=== PATIENT | male | born 1965 | race American Indian/Alaskan Native ===

== ENCOUNTER 2017-09-21 09:42 | Emergency (ER) | payer MEDICARE ==
--- NOTE | 2017-09-21 10:19 | Emergency Department Report ---
HPI - General Chief Complaint: Altered Mental Status Time Seen by Provider: 09/21/17 09:52 - HPI HPI: Room 18 The patient is a 52-year-old male presented with a chief complaint of altered mental status. Per EMS they were called to a [facility] for altered mental status. EMS states upon their arrival patient was very lethargic and appeared to have pinpoint pupils. Patient was administered 2 mg of Narcan after which she became more responsive . Patient currently has garbled speech but answers questions appropriately. Location: Mental Status Duration: unknown Quality: [See above] Severity: [See above] Modifying factors: [see above] Context: [see above] Mode of transportation: [not driving] ED Past Medical Hx - Past Medical History Previous Medical History?: Yes Hx Hypertension: Yes Hx Diabetes: Yes Hx Seizures: Yes - Surgical History Past Surgical History?: No - Family History Family history: no significant - Social History Smoking Status: Current Every Day Smoker Substance Use Type: Alcohol, Marijuana - Medications Home Medications: Home Medications Medication Instructions Recorded Confirmed Last Taken Type cloZAPine [Clozapine] 25 mg PO QHS 06/22/17 09/10/17 2 Days Ago History ~09/08/17 Aspirin [Aspirin BABY CHEW TAB] 81 mg PO QDAY #100 tab.chew 09/12/17 Unknown Rx Clopidogrel [Plavix] 75 mg PO QDAY #30 tablet 09/12/17 Unknown Rx Divalproex ER [Depakote ER] 1,000 mg PO QDAY #30 tablet 09/12/17 Unknown Rx Divalproex ER [Depakote ER] 500 mg PO QPM #30 tablet 09/12/17 Unknown Rx Insulin Glargine [Lantus VIAL] 30 units SUB-Q QHS #5 pen 09/12/17 Unknown Rx Lispro Insulin [Humalog] 0 unit SUB-Q ACHS units 09/12/17 Unknown Rx Metoprolol [Lopressor TAB] 25 mg PO BID #60 tablet 09/12/17 Unknown Rx Pravastatin [Pravachol] 40 mg PO QHS #30 tablet 09/12/17 Unknown Rx cloZAPine [Clozapine] 50 mg PO QPM 09/12/17 Unknown Rx cloZAPine [cloZAPine ODT] 300 mg PO BID 09/12/17 Unknown Rx clonazePAM [KlonoPIN] 0.5 mg PO BID #60 tablet 09/12/17 Unknown Rx metFORMIN [Glucophage] 1,000 mg PO BIDDIAB #60 tablet 09/12/17 Unknown Rx ED Review of Systems ROS: Stated complaint: AMS Other details as noted in HPI Comment: Unobtainable due to pts medical conditions Physical Exam - Physical Exam Vital Signs: Vital Signs 09/21/17 09:58 Temperature 97.5 F L Pulse Rate 89 Respiratory 12 Rate Blood Pressure 112/75 O2 Sat by Pulse 98 Oximetry Physical Exam: GENERAL: The patient is well-developed well-nourished male lying on stretcher not appearing to be in acute distress. [] HEENT: Normocephalic. Atraumatic. Extraocular motions are intact. Patient has moist mucous membranes. Pupils 2-1 mm bilaterally NECK: Supple. No meningitic signs are noted. There is no adenopathy noted. CHEST/LUNGS: Clear to auscultation. There is no respiratory distress noted. HEART/CARDIOVASCULAR: Regular. There is no tachycardia. There is no gallop rub or murmur. ABDOMEN: Abdomen is soft, nontender. Patient has normal bowel sounds. There is no abdominal distention. SKIN: There is no rash. There is no edema. There is no diaphoresis. NEURO: The patient is awake, but slow to respond. The patient is intermittently cooperative. The patient has no focal neurologic deficits. The patient has somewhat garbled speech MUSCULOSKELETAL: There is no evidence of acute injury. NIHSS= 1 LOC a. Alert= 0 Not alert but arousable to minor stimuli=1 Not alert requires repeated or strong stimuli to move= 2 Responds only reflex motor or unresponsive=3 b. asks month and age answers both correctly= 0 answers one correctly= 1 answers neither correctly= 2 Best Gaze normal= 0 abnormal in one or both but forced deviation or total paresis absent= 1 forced deviation or total gaze paresis= 2 Visual no visual loss= 0 partial hemianopia= 1 complete hemianopia= 2 bilateral hemianopia= 3 Facial Palsy normal= 0 minor paralysis= 1 partial paralysis= 2 complete paralysis= 3 Motor Arm no drift= 0 drift before 10 secs but doesnt hit bed= 1 some effort against gravity= 2 no effort against gravity= 3 no movement= 4 Motor leg no drift= 0 drift before 5 secs but doesnt hit bed= 1 drifts to bed before 5 secs= 2 no effort against gravity= 3 no movement= 4 Limb ataxia absent=0 present in one limb= 1 present in two limbs= 2 Sensory normal= 0 mild sensory loss= 1 severe (unaware of being touched)= 2 Best language mild/some loss of fluency= 1 severe= 2 mute= 3 Dysarthria normal= 0 (+)slurs some words= 1 severe/unintelligible= 2 Extinction and Inattention no abnormality= 0 visual, tactile, auditory or personal inattention= 1 profound (doesnt recognize own hand or orients to only one side= 2 ED Course Vital Signs 09/21/17 09:58 Temperature 97.5 F L Pulse Rate 89 Respiratory 12 Rate Blood Pressure 112/75 O2 Sat by Pulse 98 Oximetry ED Medical Decision Making - Lab Data Result diagrams: 09/21/17 10:05 09/21/17 10:05 Laboratory Tests 09/21/17 09/21/17 09/21/17 09:56 10:05 10:05 WBC 9.8 RBC 4.40 Hgb 12.6 Hct 36.8 MCV 84 MCH 29 MCHC 34 RDW 14.3 Plt Count 218 Lymph % (Auto) 25.4 Chester % (Auto) 8.3 H Eos % (Auto) 0.6 Baso % (Auto) 0.9 Lymph # 2.5 Chester # 0.8 Eos # 0.1 Baso # 0.1 Seg Neutrophils % 64.8 Seg Neutrophils # 6.3 PT 13.9 INR 1.02 APTT 37.0 H Sodium Potassium Chloride Carbon Dioxide Anion Gap BUN Creatinine Estimated GFR BUN/Creatinine Ratio Glucose POC Glucose 256 H Calcium Total Bilirubin AST ALT Alkaline Phosphatase Total Creatine Kinase CK-MB (CK-2) CK-MB (CK-2) Rel Index Troponin T Total Protein Albumin Albumin/Globulin Ratio Urine Color Urine Turbidity Urine pH Ur Specific Tad Urine Protein Urine Glucose (UA) Urine Ketones Urine Blood Urine Nitrite Urine Bilirubin Urine Urobilinogen Ur Leukocyte Esterase Urine WBC (Auto) Urine RBC (Auto) U Epithel Cells (Auto) Urine Bacteria (Auto) Urine Mucus Urine Opiates Screen Urine Methadone Screen Ur Barbiturates Screen Valproic Acid Ur Phencyclidine Scrn Ur Amphetamines Screen U Benzodiazepines Scrn Urine Cocaine Screen U Marijuana (THC) Screen Plasma/Serum Alcohol 09/21/17 09/21/17 09/21/17 10:05 10:05 10:05 WBC RBC Hgb Hct MCV MCH MCHC RDW Plt Count Lymph % (Auto) Chester % (Auto) Eos % (Auto) Baso % (Auto) Lymph # Chester # Eos # Baso # Seg Neutrophils % Seg Neutrophils # PT INR APTT Sodium 141 Potassium 3.6 Chloride 105.2 Carbon Dioxide 26 Anion Gap 13 BUN 10 Creatinine 0.8 Estimated GFR > 60 BUN/Creatinine Ratio 13 Glucose 255 H POC Glucose Calcium 8.4 Total Bilirubin 0.20 AST 9 ALT 11 Alkaline Phosphatase 51 Total Creatine Kinase 75 CK-MB (CK-2) 1.8 CK-MB (CK-2) Rel Index 2.4 Troponin T < 0.010 Total Protein 6.4 Albumin 2.8 L Albumin/Globulin Ratio 0.8 Urine Color Urine Turbidity Urine pH Ur Specific Tad Urine Protein Urine Glucose (UA) Urine Ketones Urine Blood Urine Nitrite Urine Bilirubin Urine Urobilinogen Ur Leukocyte Esterase Urine WBC (Auto) Urine RBC (Auto) U Epithel Cells (Auto) Urine Bacteria (Auto) Urine Mucus Urine Opiates Screen Urine Methadone Screen Ur Barbiturates Screen Valproic Acid 69.4 Ur Phencyclidine Scrn Ur Amphetamines Screen U Benzodiazepines Scrn Urine Cocaine Screen U Marijuana (THC) Screen Plasma/Serum Alcohol < 0.01 09/21/17 09/21/17 12:55 12:55 WBC RBC Hgb Hct MCV MCH MCHC RDW Plt Count Lymph % (Auto) Chester % (Auto) Eos % (Auto) Baso % (Auto) Lymph # Chester # Eos # Baso # Seg Neutrophils % Seg Neutrophils # PT INR APTT Sodium Potassium Chloride Carbon Dioxide Anion Gap BUN Creatinine Estimated GFR BUN/Creatinine Ratio Glucose POC Glucose Calcium Total Bilirubin AST ALT Alkaline Phosphatase Total Creatine Kinase CK-MB (CK-2) CK-MB (CK-2) Rel Index Troponin T Total Protein Albumin Albumin/Globulin Ratio Urine Color Yellow Urine Turbidity Clear Urine pH 5.0 Ur Specific Tad 1.023 Urine Protein 30 mg/dl Urine Glucose (UA) 150 Urine Ketones Tr Urine Blood Neg Urine Nitrite Pos Urine Bilirubin Neg Urine Urobilinogen < 2.0 Ur Leukocyte Esterase Neg Urine WBC (Auto) 14.0 H Urine RBC (Auto) 4.0 U Epithel Cells (Auto) 1.0 Urine Bacteria (Auto) 2+ Urine Mucus Few Urine Opiates Screen Presumptive negative Urine Methadone Screen Presumptive negative Ur Barbiturates Screen Presumptive negative Valproic Acid Ur Phencyclidine Scrn Presumptive negative Ur Amphetamines Screen Presumptive negative U Benzodiazepines Scrn Presumptive negative Urine Cocaine Screen Presumptive negative U Marijuana (THC) Screen Presumptive negative Plasma/Serum Alcohol - EKG Data -: EKG Interpreted by Me EKG shows normal: sinus rhythm Rate: normal - EKG Data When compared to previous EKG there are: previous EKG unavailable Interpretation: other (no ischemic changes seen) - Radiology Data Radiology results: report reviewed (CT head (discussed with radiologist)), image reviewed (CT head) CT head (discussed with radiologist Dr. Christiansen in the radiology reading room)- no acute findings. Chronic appearing infarcts - Differential Diagnosis opiate overdose, polysubstance abuse, ICH, electrolyte abnormality Critical care attestation.: If time is entered above; I have spent that time in minutes in the direct care of this critically ill patient, excluding procedure time. ED Disposition Clinical Impression: Altered mental status Disposition: DC-[id number] OP ADMIT IP TO THIS HOSP Is pt being admited?: Yes Does the pt Need Aspirin: Yes Condition: Fair Referrals: PRIMARY CARE,MD [Primary Care Provider] - 3-5 Days Time of Disposition: 13:33 (hospitalist paged (Dr Pimentel))
[2017-09-21 10:26] LABS: Basophils # (Auto) 0.1 K/mm3 (0.0-0.1); Basophils % (Auto) 0.9 % (0.0-1.8); Eosinophils # (Auto) 0.1 K/mm3 (0.0-0.4); Eosinophils % (Auto) 0.6 % (0.0-4.3); Hematocrit 36.8 % (35.5-45.6); Hemoglobin 12.6 gm/dl (11.8-15.2); Lymphocytes # (Auto) 2.5 K/mm3 (1.2-5.4); Lymphocytes % (Auto) 25.4 % (13.4-35.0); Mean Corpuscular HGB Conc 34 % (32-34); Mean Corpuscular Hemoglobin 29 pg (28-32); Mean Corpuscular Volume 84 fl (84-94); Monocytes # (Auto) 0.8 K/mm3 (0.0-0.8); Monocytes % (Auto) 8.3 % (0.0-7.3); Platelet Count 218 K/mm3 (140-440); Red Cell Distribution Width 14.3 % (13.2-15.2)
[2017-09-21 10:37] LABS: INR 1.02 (0.87-1.13)
[2017-09-21 10:46] LABS: Creatine Kinase MB 1.8 ng/mL (0.0-4.0)
[2017-09-21 10:48] LABS: Alanine Aminotransferase 11 units/L (7-56); Albumin 2.8 g/dL (3.9-5); BUN/Creatinine Ratio 13; Blood Urea Nitrogen 10 mg/dL (9-20); Calcium 8.4 mg/dL (8.4-10.2); Hemolysis Index 0
[2017-09-21 13:20] LABS: Bacteria,Urine 2+ /HPF (Negative); Bilirubin,Urine NEG (Negative); Blood,Urine NEG (Negative); Color,Urine Yellow (Yellow); Mucus,Urine FEW /HPF; Urobilinogen,Urine < 2.0 mg/dL (<2.0)
[2017-09-21 13:28] LABS: Amphetamine Screen,Urine PRESUMPTIVE NEGATIVE; Benzodiazepines Screen,Urine PRESUMPTIVE NEGATIVE; Cannabinoid Screen,Urine PRESUMPTIVE NEGATIVE; Cocaine Screen,Urine PRESUMPTIVE NEGATIVE; Methadone Screen,Urine PRESUMPTIVE NEGATIVE; Opiate Screen,Urine PRESUMPTIVE NEGATIVE
[2017-09-21] MEDS ORDERED: ASPIRIN PO ONE (13:34)
--- NOTE | 2017-09-21 17:47 | Event Note ---
Date: 09/21/17 Patient evaluated Recently admitted and discharge Had complete w/u Had MRIand MRA Had small infarct in Parietal area last admission AMS - resolved D/c hpme Cont same meds
[2017-09-22 01:20] VITALS: BP 119/76
--- NOTE | 2017-09-25 12:56 | Cat Scan Report ---
CT HEAD WITHOUT CONTRAST: HISTORY: Altered mental status. TECHNIQUE: Sequential 2.5mm CT images. COMPARISON: 09/09/17. FINDINGS: Cerebral Parenchyma: Chronic, small cortical infarcts in the right frontal lobe and left posterior temporal lobe are again noted. The remaining brain parenchyma demonstrates normal attenuation. Cerebellum: Focal chronic infarcts in the right cerebellar hemisphere measuring 1.7 cm and 0.9 cm are again noted. The remainder the cerebellum is unremarkable. Brainstem: Within normal limits. Ventricles: Normal. Sella: Normal. Extra-axial spaces: Normal. Basal Cisterns: Normal. Intracranial Hemorrhage: None. Midline Shift: None. Calvarium: Normal. Sinuses: Normal. Mastoid Air Cells: Normal. Visualized Orbits: Normal. IMPRESSION: No acute intracranial process. Chronic infarcts as described. No change since 09/09/17.
== END 2017-09-22 00:30 | disposition admitted as inpatient to this hospital (09) ==
LOC: ED 09:42
DX: R41.82 Altered mental status, unspecified (principal); I10 Essential (primary) hypertension; I63.8 Other cerebral infarction; F17.200 Nicotine dependence, unspecified, uncomplicated; F12.90 Cannabis use, unspecified, uncomplicated; Z79.82 Long term (current) use of aspirin; Z79.4 Long term (current) use of insulin
CPT/HCPCS: 36415; 70450; 80053; 80164; 80307; 81001; 82550; 82553; 82962; 84484; 85025; 85610; 85730; 93005; 93010; 99284; G0480; 80320

== ENCOUNTER 2017-12-02 09:17 | Inpatient (IN) | payer MEDICARE ==
[2017-12-02 10:02] LABS: Basophils % (Auto) 0.5 % (0.0-1.8); Hematocrit 39.8 % (35.5-45.6); Hemoglobin 13.2 gm/dl (11.8-15.2); Lymphocytes # (Auto) 2.1 K/mm3 (1.2-5.4); Lymphocytes % (Auto) 22.7 % (13.4-35.0); Mean Corpuscular HGB Conc 33 % (32-34); Mean Corpuscular Hemoglobin 28 pg (28-32); Mean Corpuscular Volume 85 fl (84-94); Monocytes # (Auto) 0.5 K/mm3 (0.0-0.8); Monocytes % (Auto) 5.4 % (0.0-7.3); Platelet Count 138 K/mm3 (140-440); Red Blood Count 4.68 M/mm3 (3.65-5.03); Red Cell Distribution Width 15.3 % (13.2-15.2)
[2017-12-02 10:20] LABS: Alanine Aminotransferase 14 units/L (7-56); Albumin 3.4 g/dL (3.9-5); BUN/Creatinine Ratio 7; Blood Urea Nitrogen 7 mg/dL (9-20); Calcium 8.8 mg/dL (8.4-10.2); Hemolysis Index 8
--- NOTE | 2017-12-02 10:22 | Emergency Department Report ---
HPI - General Chief Complaint: Altered Mental Status Time Seen by Provider: 12/02/17 09:59 - HPI HPI: 52-year-old male presents to the emergency department via EMS with the complaint of some altered mental status. The patient is currently awake but does appear confused and is unsure how long he has been here and when he was sent in for. He has a past medical history of [id number] diabetes, previous CVA, hyperlipidemia, schizophrenia and questionable seizure history. Currently the patient himself has no complaints but is a poor historian. ED Past Medical Hx - Past Medical History Previous Medical History?: Yes Hx Hypertension: Yes Hx Congestive Heart Failure: No Hx Diabetes: Yes Hx Seizures: Yes Hx Asthma: No Hx COPD: No Hx HIV: No - Social History Smoking Status: Current Every Day Smoker Substance Use Type: None - Medications Home Medications: Home Medications Medication Instructions Recorded Confirmed Last Taken Type cloZAPine [Clozapine] 25 mg PO QHS 06/22/17 12/02/17 2 Days Ago History ~09/08/17 Aspirin [Aspirin BABY CHEW TAB] 81 mg PO QDAY #100 tab.chew 09/12/17 12/02/17 Unknown Rx Clopidogrel [Plavix] 75 mg PO QDAY #30 tablet 09/12/17 12/02/17 Unknown Rx Pravastatin [Pravachol] 40 mg PO QHS #30 tablet 09/12/17 12/02/17 Unknown Rx Divalproex ER [Depakote ER] 500 mg PO BID 12/02/17 12/02/17 Unknown History Glimepiride [Amaryl] 2 mg PO QDAY 12/02/17 12/02/17 Unknown History cloZAPine 100 mg PO QDAY 12/02/17 12/02/17 Unknown History hydrOXYZINE PAMOATE [Hydroxyzine 25 mg PO QDAY 12/02/17 12/02/17 Unknown History Pamoate] metFORMIN [Glucophage] 500 mg PO QDAY 12/02/17 12/02/17 Unknown History ED Review of Systems ROS: Stated complaint: ALTERED LEVEL OF CONSCIOUSNESS Other details as noted in HPI Comment: Unobtainable due to pts medical conditions Neurological: confusion Physical Exam - Physical Exam Vital Signs: Vital Signs 12/02/17 12/02/17 12/02/17 09:33 09:35 09:36 Temperature 98.1 F Pulse Rate 87 Respiratory 16 16 Rate Blood Pressure 127/76 127/76 Blood Pressure 127/76 [Left] O2 Sat by Pulse 98 98 Oximetry 12/02/17 09:46 Temperature Pulse Rate 85 Respiratory 26 H Rate Blood Pressure 127/76 Blood Pressure [Left] O2 Sat by Pulse 98 Oximetry Physical Exam: GENERAL: The patient is well-developed well-nourished. HENT: Normocephalic. Atraumatic. Patient has moist mucous membranes. EYES: Extraocular motions are intact. Pupils equal reactive to light bilaterally. NECK: Supple. Trachea is midline. CHEST/LUNGS: Clear to auscultation. There is no respiratory distress noted. HEART/CARDIOVASCULAR: Regular. There is no tachycardia. There is no murmur. ABDOMEN: Abdomen is soft, nontender. Patient has normal bowel sounds. There is no abdominal distention. SKIN: Skin is warm and dry. NEURO: The patient is awake and cooperative but does appear confused. AO [address] but not time. Follows commands. MUSCULOSKELETAL: There is no tenderness or deformity. There is no evidence of acute injury. ED Course Vital Signs 12/02/17 12/02/17 12/02/17 09:33 09:35 09:36 Temperature 98.1 F Pulse Rate 87 Respiratory 16 16 Rate Blood Pressure 127/76 127/76 Blood Pressure 127/76 [Left] O2 Sat by Pulse 98 98 Oximetry 12/02/17 09:46 Temperature Pulse Rate 85 Respiratory 26 H Rate Blood Pressure 127/76 Blood Pressure [Left] O2 Sat by Pulse 98 Oximetry - Reevaluation(s) Reevaluation #1: 12/02/17 13:54 NIH Stroke Scale/Score (NIHSS) RESULT SUMMARY: 1 points NIH Stroke Scale INPUTS: 1A: Level of consciousness > 0 = Alert; keenly responsive 1B: Ask month and age > 1 = 1 question right 1C: 'Blink eyes' & 'squeeze hands' > 0 = Performs both tasks 2: Horizontal extraocular movements > 0 = Normal 3: Visual figueroa > 0 = No visual loss 4: Facial palsy > 0 = Normal symmetry 5A: Left arm motor drift > 0 = No drift for 10 seconds 5B: Right arm motor drift > 0 = No drift for 10 seconds 6A: Left leg motor drift > 0 = No drift for 5 seconds 6B: Right leg motor drift > 0 = No drift for 5 seconds 7: Limb Ataxia > 0 = No ataxia 8: Sensation > 0 = Normal; no sensory loss 9: Language/aphasia > 0 = Normal; no aphasia 10: Dysarthria > 0 = Normal 11: Extinction/inattention > 0 = No abnormality ED Medical Decision Making - Lab Data Result diagrams: 12/02/17 09:45 12/02/17 09:45 - EKG Data -: EKG Interpreted by Me EKG shows normal: sinus rhythm, axis, intervals (prolonged QT and QTC intervals) , QRS complexes (Q waves to the septal leads), ST-T waves (flattened T waves) Rate: normal - EKG Data When compared to previous EKG there are: no significant change Interpretation: unchanged when compared t () - Radiology Data Radiology results: report reviewed CT HEAD WITHOUT CONTRAST: HISTORY: Altered mental status. TECHNIQUE: Sequential 2.5mm CT images. COMPARISON: 09/21/17. FINDINGS: Chronic infarcts in the right frontal lobe, left posterior temporal lobe and right cerebellar hemisphere are unchanged since the previous examination. No new area of diminished attenuation is identified suggesting acute ischemia. No evidence for hemorrhage, mass or extra axial fluid collection. Ventricular size remains within normal limits. The visualized sinuses and mastoid air cells are adequately aerated. The calvarium is intact. IMPRESSION: Multiple chronic infarcts which are unchanged since 09/21/17. No acute intracranial process is identified. Transcribed By: TTR Dictated By: NASRIN SANCHEZ JR, MD Electronically Authenticated By: NASRIN SANCHEZ JR, MD Signed Date/Time: 12/02/17 1021 - Medical Decision Making Patient presents for some altered mental status. He does display some confusion but otherwise is awake and cooperative. He does not have any significant lateralizing deficits. There is no last known well time and therefore patient would not be a TPA candidate. CT of the head without contrast shows multiple chronic infarcts that are unchanged from previous. His labs do show a urinary tract infection but the rest the labs/blood work is mostly concerning for etiology of his symptoms. Urine culture was sent and the patient was started on Rocephin. He will be admitted to the hospital for further evaluation and treatment and was accepted for admission by the hospitalist, Dr. Pimentel. - Differential Diagnosis CVA, TIA, UTI, Dementia, Psychosis Critical Care Time: No Critical care attestation.: If time is entered above; I have spent that time in minutes in the direct care of this critically ill patient, excluding procedure time. ED Disposition Clinical Impression: Hyperglycemia Altered mental status Qualifiers: Altered mental status type: unspecified Qualified Code(s): R41.82 - Altered mental status, unspecified Uncontrolled diabetes mellitus Qualifiers: Diabetes mellitus type: type 2 Diabetes mellitus petroleum terminal plant operator insulin use: without petroleum terminal plant operator use Diabetes mellitus complication status: with hyperglycemia Qualified Code(s): E11.65 - Type 2 diabetes mellitus with hyperglycemia UTI (urinary tract infection) Qualifiers: Urinary tract infection type: acute cystitis Hematuria presence: without hematuria Qualified Code(s): N30.00 - Acute cystitis without hematuria Disposition: 09 OP ADMIT IP TO THIS HOSP Is pt being admited?: Yes Condition: Fair Time of Disposition: 11:31
--- NOTE | 2017-12-02 10:27 | Cat Scan Report ---
CT HEAD WITHOUT CONTRAST: HISTORY: Altered mental status. TECHNIQUE: Sequential 2.5mm CT images. COMPARISON: 09/21/17. FINDINGS: Chronic infarcts in the right frontal lobe, left posterior temporal lobe and right cerebellar hemisphere are unchanged since the previous examination. No new area of diminished attenuation is identified suggesting acute ischemia. No evidence for hemorrhage, mass or extra axial fluid collection. Ventricular size remains within normal limits. The visualized sinuses and mastoid air cells are adequately aerated. The calvarium is intact. IMPRESSION: Multiple chronic infarcts which are unchanged since 09/21/17. No acute intracranial process is identified.
[2017-12-02] MEDS ORDERED: NACL 0.9% 500 ML 500 ML IV ONE (10:33)
[2017-12-02] MEDS ORDERED: HumuLIN R IV ONE (10:33)
[2017-12-02 13:05] LABS: Bilirubin,Urine NEG (Negative); Blood,Urine NEG (Negative); Color,Urine Yellow (Yellow); Protein,Urine <15 mg/dL mg/dL (Negative); Urobilinogen,Urine < 2.0 mg/dL (<2.0)
[2017-12-02 13:13] LABS: Amphetamine Screen,Urine PRESUMPTIVE NEGATIVE; Benzodiazepines Screen,Urine PRESUMPTIVE NEGATIVE; Cannabinoid Screen,Urine PRESUMPTIVE NEGATIVE; Cocaine Screen,Urine PRESUMPTIVE NEGATIVE; Methadone Screen,Urine PRESUMPTIVE NEGATIVE; Opiate Screen,Urine PRESUMPTIVE NEGATIVE
[2017-12-02] MEDS: HEPARIN SUB-Q SCH ×2 (14:45→23:29)
[2017-12-02] MEDS ORDERED: ROCEPHIN/NS 1 GM/50 ML 1 GM/50 ML BAG IV ONE (15:00)
[2017-12-02] MEDS ORDERED: SODIUM CHLORIDE FLUSH SYRINGE 10 ML IV PRN (21:47)
[2017-12-02] MEDS ORDERED: TYLENOL PO PRN (21:47)
[2017-12-02] MEDS ORDERED: ZOFRAN IV PRN (21:47)
--- NOTE | 2017-12-02 21:47 | History and Physical Report ---
History of Present Illness Date of examination: 12/02/17 Date of admission: 12/02/17 11:32 Chief complaint: CC Altered Sensorium 2 days History of present illness: VENETIE IRA: 52-year-old black male with history of type 2 diabetes hyperlipidemia coronary artery disease and hypertension and psychiatric problems comes in for altered sensorium. No fever no chills. Patient has been altered for 2 days since yesterday. No precipitating factors. No shortness of breath. Patient has schizophrenia and questionable seizure history. Also previous CVA. No recent travel. Patient poor historian. Past History Past Medical History: diabetes, hypertension, hyperlipidemia, stroke, other ( Schizophrenia) Past Surgical History: No surgical history Social history: lives with family, full code Family history: hypertension Medications and Allergies Allergies Allergy/AdvReac Type Severity Reaction Status Date / Time No Known Allergies Allergy Unverified 09/09/17 14:11 Home Medications Medication Instructions Recorded Confirmed Last Taken Type cloZAPine [Clozapine] 25 mg PO QHS 06/22/17 12/02/17 2 Days Ago History ~09/08/17 Aspirin [Aspirin BABY CHEW TAB] 81 mg PO QDAY #100 tab.chew 09/12/17 12/02/17 Unknown Rx Clopidogrel [Plavix] 75 mg PO QDAY #30 tablet 09/12/17 12/02/17 Unknown Rx Pravastatin [Pravachol] 40 mg PO QHS #30 tablet 09/12/17 12/02/17 Unknown Rx Divalproex ER [Depakote ER] 500 mg PO BID 12/02/17 12/02/17 Unknown History Glimepiride [Amaryl] 2 mg PO QDAY 12/02/17 12/02/17 Unknown History cloZAPine 100 mg PO QDAY 12/02/17 12/02/17 Unknown History hydrOXYZINE PAMOATE [Hydroxyzine 25 mg PO QDAY 12/02/17 12/02/17 Unknown History Pamoate] metFORMIN [Glucophage] 500 mg PO QDAY 12/02/17 12/02/17 Unknown History Active Meds: Active Medications Heparin Sodium (Porcine) (Heparin) 5,000 unit SUB-Q Q8HR ANTONIO Last Admin: 12/02/17 14:45 Dose: 5,000 unit Review of Systems All systems: negative Constitutional: no weight loss, no weight gain, no fever, no chills Ears, nose, mouth and throat: no hoarseness, no sore throat, no swelling in mouth, no swelling in throat Cardiovascular: no chest pain, no orthopnea, no palpitations, no rapid/ irregular heart beat, no edema, no syncope Respiratory: no cough, no cough with sputum, no excessive sputum, no hemoptysis , no shortness of breath, no dyspnea on exertion Gastrointestinal: constipation, no nausea, no vomiting, no diarrhea Genitourinary Male: dysuria, urinary frequency Rectal: no pain Musculoskeletal: no neck stiffness, no neck pain, no shooting arm pain, no arm numbness/tingling, no low back pain, no shooting leg pain, no leg numbness/ tingling, no redness of joints Integumentary: no rash, no pruritis, no redness, no sores, no wounds, no jaundice, no boils, no blisters Neurological: no seizures, no syncope Psychiatric: no anxiety, no memory loss, no change in sleep habits, no sleep disturbances Endocrine: no cold intolerance, no heat intolerance, no polyphagia, no excessive thirst Hematologic/Lymphatic: no easy bruising, no easy bleeding Allergic/Immunologic: no urticaria, no allergic rhinitis, no wheezing Exam - Constitutional Vitals: Temp Pulse Resp BP Pulse Ox 99.0 F 76 20 111/74 98 12/02/17 15:47 12/02/17 15:47 12/02/17 15:47 12/02/17 15:47 12/02/17 15:47 General appearance: Present: no acute distress, well-nourished - EENT Eyes: Present: PERRL ENT: hearing intact, clear oral mucosa - Neck Neck: Present: supple, normal ROM - Respiratory Respiratory effort: normal Respiratory: bilateral: CTA - Cardiovascular Heart rate: 78 Rhythm: regular Heart Sounds: Present: S1 & S2. Absent: rub, click - Extremities Extremities: no ischemia, pulses intact, pulses symmetrical, No edema Peripheral Pulses: within normal limits - Abdominal General gastrointestinal: Present: soft, non-tender, non-distended, normal bowel sounds Male genitourinary: Present: normal - Integumentary Integumentary: Present: clear, warm, dry - Musculoskeletal Musculoskeletal: strength equal bilaterally, other (Altered sensorium) - Psychiatric Psychiatric: depressed, other - Neurologic Neurologic: CNII-XII intact, moves all extremities Results - Labs CBC & Chem 7: 12/02/17 09:45 08 09:45 Labs: Laboratory Last Values WBC 9.2 K/mm3 (4.5-11.0) 12/02/17 09:45 RBC 4.68 M/mm3 (3.65-5.03) 12/02/17 09:45 Hgb 13.2 gm/dl (11.8-15.2) 12/02/17 09:45 Hct 39.8 % (35.5-45.6) 12/02/17 09:45 MCV 85 fl (84-94) 12/02/17 09:45 MCH 28 pg (28-32) 12/02/17 09:45 MCHC 33 % (32-34) 12/02/17 09:45 RDW 15.3 % (13.2-15.2) H 12/02/17 09:45 Plt Count 138 K/mm3 (140-440) L 12/02/17 09:45 Lymph % (Auto) 22.7 % (13.4-35.0) 12/02/17 09:45 [place] % (Auto) 5.4 % (0.0-7.3) 12/02/17 09:45 Eos % (Auto) 0.0 % (0.0-4.3) 12/02/17 09:45 Baso % (Auto) 0.5 % (0.0-1.8) 12/02/17 09:45 Lymph # 2.1 K/mm3 (1.2-5.4) 12/02/17 09:45 [place] # 0.5 K/mm3 (0.0-0.8) 12/02/17 09:45 Eos # 0.0 K/mm3 (0.0-0.4) 12/02/17 09:45 Baso # 0.0 K/mm3 (0.0-0.1) 12/02/17 09:45 Seg Neutrophils % 71.4 % (40.0-70.0) H 12/02/17 09:45 Seg Neutrophils # 6.6 K/mm3 (1.8-7.7) 12/02/17 09:45 Sodium 141 mmol/L (137-145) 12/02/17 09:45 Potassium 4.0 mmol/L (3.6-5.0) 12/02/17 09:45 Chloride 103.2 mmol/L (98-107) 12/02/17 09:45 Carbon Dioxide 22 mmol/L (22-30) 12/02/17 09:45 Anion Gap 20 mmol/L 12/02/17 09:45 BUN 7 mg/dL (9-20) L 12/02/17 09:45 Creatinine 1.0 mg/dL (0.8-1.5) 12/02/17 09:45 Estimated GFR > 60 ml/min 12/02/17 09:45 BUN/Creatinine Ratio 7 % 12/02/17 09:45 Glucose 311 mg/dL (75-100) H 12/02/17 09:45 POC Glucose 99 (70-105) 12/02/17 17:33 Calcium 8.8 mg/dL (8.4-10.2) 12/02/17 09:45 Total Bilirubin 0.20 mg/dL (0.1-1.2) 12/02/17 09:45 AST 13 units/L (5-40) 12/02/17 09:45 ALT 14 units/L (7-56) 12/02/17 09:45 Alkaline Phosphatase 77 units/L (35-129) 12/02/17 09:45 Troponin T < 0.010 ng/mL (0.00-0.029) 12/02/17 09:45 Total Protein 6.9 g/dL (6.3-8.2) 12/02/17 09:45 Albumin 3.4 g/dL (3.9-5) L 12/02/17 09:45 Albumin/Globulin Ratio 1.0 % 12/02/17 09:45 TSH 4.120 mlU/mL (0.270-4.200) 12/02/17 09:45 Urine Color Yellow (Yellow) 12/02/17 12:33 Urine Turbidity Hazy (Clear) 12/02/17 12:33 Urine pH 6.0 (5.0-7.0) 12/02/17 12:33 Ur Specific [place] 1.018 (1.003-1.030) 12/02/17 12:33 Urine Protein <15 mg/dl mg/dL (Negative) 12/02/17 12:33 Urine Glucose (UA) >=500 mg/dL (Negative) 12/02/17 12:33 Urine Ketones Neg mg/dL (Negative) 12/02/17 12:33 Urine Blood Neg (Negative) 12/02/17 12:33 Urine Nitrite Neg (Negative) 12/02/17 12:33 Urine Bilirubin Neg (Negative) 12/02/17 12:33 Urine Urobilinogen < 2.0 mg/dL (<2.0) 12/02/17 12:33 Ur Leukocyte Esterase Mod (Negative) 12/02/17 12:33 Urine WBC (Auto) 89.0 /HPF (0.0-6.0) H 12/02/17 12:33 Urine RBC (Auto) 5.0 /HPF (0.0-6.0) 12/02/17 12:33 Urine Opiates Screen Presumptive negative 12/02/17 12:33 Urine Methadone Screen Presumptive negative 12/02/17 12:33 Ur Barbiturates Screen Presumptive negative 12/02/17 12:33 Valproic Acid 68.7 ug/mL (50-100) 12/02/17 09:45 Ur Phencyclidine Scrn Presumptive negative 12/02/17 12:33 Ur Amphetamines Screen Presumptive negative 12/02/17 12:33 U Benzodiazepines Scrn Presumptive negative 12/02/17 12:33 Urine Cocaine Screen Presumptive negative 12/02/17 12:33 U Marijuana (THC) Screen Presumptive negative 12/02/17 12:33 Drugs of Abuse Note Disclamer 12/02/17 12:33 Plasma/Serum Alcohol < 0.01 % (0-0.07) 12/02/17 09:45 Short CBC 12/02/17 Range/Units 09:45 WBC 9.2 (4.5-11.0) K/mm3 Hgb 13.2 (11.8-15.2) gm/dl Hct 39.8 (35.5-45.6) % Plt Count 138 L (140-440) K/mm3 BMP 12/02/17 09:45 Sodium 141 Potassium 4.0 Chloride 103.2 Carbon Dioxide 22 BUN 7 L Creatinine 1.0 Glucose 311 H Calcium 8.8 Cardiac Enzymes 12/02/17 Range/Units 09:45 Troponin T < 0.010 (0.00-0.029) ng/mL Liver Function 12/02/17 Range/Units 09:45 Total Bilirubin 0.20 (0.1-1.2) mg/dL AST 13 (5-40) units/L ALT 14 (7-56) units/L Alkaline Phosphatase 77 (35-129) units/L Albumin 3.4 L (3.9-5) g/dL Urine 12/02/17 Range/Units 12:33 Urine Color Yellow (Yellow) Urine pH 6.0 (5.0-7.0) Ur Specific [place] 1.018 (1.003-1.030) Urine Protein <15 mg/dl (Negative) mg/dL Urine Glucose (UA) >=500 (Negative) mg/dL - Imaging and Cardiology EKG: report reviewed (normal sinus rhythm probable anteroseptal infarct heart rate of 86) CT Scan - head: report reviewed Imaging and Cardiology: CT head IMPRESSION: Multiple chronic infarcts which are unchanged since 09/21/17. No acute intracranial process is identified. Assessment and Plan Advance Directives: Yes (full code) VTE prophylaxis?: Chemical Plan of care discussed with patient/family: Yes - Patient Problems (1) Acute encephalopathy Current Visit: Yes Status: Acute Plan to address problem: Patient is altered sensorium secondary to urinary tract infection and possible constipation secondary to Clozaril. KUB ordered IV Rocephin 2 g IV piggyback every 24 pending blood cultures (2) UTI (urinary tract infection) Current Visit: Yes Status: Acute Qualifiers: Urinary tract infection type: acute cystitis Hematuria presence: without hematuria Qualified Code(s): N30.00 - Acute cystitis without hematuria Plan to address problem: IV Rocephin 2 g IV piggyback every 24 (3) History of CVA with residual deficit Current Visit: Yes Status: Chronic Plan to address problem: Continue Plavix (4) Hyperlipidemia Current Visit: Yes Status: Chronic Qualifiers: Hyperlipidemia type: mixed hyperlipidemia Qualified Code(s): E78.2 - Mixed hyperlipidemia Plan to address problem: Continue statins (5) Uncontrolled diabetes mellitus Current Visit: Yes Status: Chronic Qualifiers: Diabetes mellitus type: type 2 Diabetes mellitus penitentiary insulin use: without penitentiary use Diabetes mellitus complication status: with hyperglycemia Qualified Code(s): E11.65 - Type 2 diabetes mellitus with hyperglycemia Plan to address problem: Continue oral hypoglycemics and coverage Patient started on Lantus 15 mg subcutaneous daily at bedtime. Check hemoglobin A1c (6) Schizophrenia Current Visit: Yes Status: Chronic Qualifiers: Schizophrenia type: unspecified Qualified Code(s): F20.9 - Schizophrenia, unspecified Plan to address problem: Continue Clozaril and Depakote (7) Hypertension Current Visit: Yes Status: Chronic Qualifiers: Hypertension type: essential hypertension Qualified Code(s): I10 - Essential (primary) hypertension Plan to address problem: Patient not on any antihypertensives Blood pressure under control We will initiate antihypertensives if necessary (8) DVT prophylaxis Current Visit: Yes Status: Acute Plan to address problem: Patient initiated on Lovenox GI prophylaxis initiated
[2017-12-02] MEDS ORDERED: PERCOCET 5/325 PO PRN (21:53)
[2017-12-02] MEDS ORDERED: MORPHINE IV PRN (21:53)
[2017-12-02] MEDS ORDERED: NACL 0.9% 1000 ML 1,000 ML IV SCH (22:00)
[2017-12-02] MEDS ORDERED: CLOZAPINE 25 MG PO SCH (22:00)
[2017-12-02] MEDS: PLAVIX PO SCH (22:20)
[2017-12-02] MEDS: PRAVACHOL PO SCH (23:19)
[2017-12-02] MEDS: PEPCID PO SCH (23:20)
[2017-12-02] MEDS: BABY ASPIRIN PO SCH (23:20)
[2017-12-02] MEDS: SODIUM CHLORIDE FLUSH SYRINGE 10 ML IV SCH (23:22)
[2017-12-02] MEDS: ROCEPHIN/NS 2 GM/100 ML 2 GM/100 ML BAG IV SCH (23:25)
[2017-12-02] MEDS: HumaLOG SUB-Q SCH (23:29)
[2017-12-03] MEDS: HEPARIN SUB-Q SCH ×3 (05:55→21:09)
[2017-12-03 06:13] LABS: Basophils # (Auto) 0.1 K/mm3 (0.0-0.1); Basophils % (Auto) 0.6 % (0.0-1.8); Eosinophils % (Auto) 0.2 % (0.0-4.3); Hemoglobin 12.4 gm/dl (11.8-15.2); Lymphocytes # (Auto) 3.9 K/mm3 (1.2-5.4); Lymphocytes % (Auto) 38.6 % (13.4-35.0); Mean Corpuscular HGB Conc 34 % (32-34); Mean Corpuscular Hemoglobin 29 pg (28-32); Mean Corpuscular Volume 84 fl (84-94); Monocytes # (Auto) 0.8 K/mm3 (0.0-0.8); Monocytes % (Auto) 7.6 % (0.0-7.3); Platelet Count 126 K/mm3 (140-440); Red Blood Count 4.28 M/mm3 (3.65-5.03); Red Cell Distribution Width 15.4 % (13.2-15.2)
[2017-12-03 06:44] LABS: Alanine Aminotransferase 14 units/L (7-56); BUN/Creatinine Ratio 9; Blood Urea Nitrogen 8 mg/dL (9-20); Calcium 8.3 mg/dL (8.4-10.2); Hemolysis Index 8
[2017-12-03] MEDS: HumaLOG SUB-Q SCH ×4 (09:03→22:52)
[2017-12-03] MEDS: PLAVIX PO SCH (09:38)
[2017-12-03] MEDS: PEPCID PO SCH ×2 (09:38→21:08)
[2017-12-03] MEDS: GLUCOPHAGE PO SCH (09:38)
[2017-12-03] MEDS: AMARYL PO SCH (09:39)
[2017-12-03] MEDS: SODIUM CHLORIDE FLUSH SYRINGE 10 ML IV SCH ×2 (09:39→21:10)
[2017-12-03] MEDS: BABY ASPIRIN PO SCH (09:39)
[2017-12-03] MEDS ORDERED: NON-FORMULARY (Clozapine [Clozapine] 100 MG) PO SCH (10:00)
--- NOTE | 2017-12-03 10:22 | Progress Note ---
Assessment and Plan Assessment and plan: Sepsis. Present on admission. Patient meets criteria given the tachycardia, altered mental status and diagnosis of UTI. Follow-up blood and urine cultures. Place on the sepsis pathway and check lactic acid levels. UTI. Follow-up urine cultures. Toxic metabolic encephalopathy. Continue to treat underlying causes as above. History of CVA with residual deficits. Continue Plavix. Hyperlipidemia. Continue statins. Diabetes mellitus type II, uncontrolled. Continue oral hypoglycemics and sliding scale. Continue Lantus 15 units at bedtime. Hypertension. Continue antihypertensive medications. Schizophrenia. Continue Clozaril and Depakote DVT prophylaxis. Continue Lovenox. History Interval history: No new issues overnight. Hospitalist Physical - Constitutional Vitals: Temp Pulse Resp BP Pulse Ox 98.5 F 58 L 18 110/70 99 12/03/17 05:35 12/03/17 05:35 12/03/17 05:35 12/03/17 05:35 12/03/17 05:35 General appearance: Present: no acute distress, well-nourished - EENT Eyes: Present: PERRL, EOM intact ENT: hearing intact, clear oral mucosa, dentition normal - Neck Neck: Present: supple, normal ROM - Respiratory Respiratory effort: normal Respiratory: bilateral: CTA - Cardiovascular Rhythm: regular Heart Sounds: Present: S1 & S2. Absent: gallop, rub - Extremities Extremities: no ischemia, No edema, Full ROM - Abdominal General gastrointestinal: soft, non-tender, non-distended, normal bowel sounds - Integumentary Integumentary: Present: clear, warm, dry - Neurologic Neurologic: CNII-XII intact, moves all extremities Results - Labs CBC & Chem 7: 12/03/17 05:13 12/03/17 05:13 Labs: Laboratory Last Values WBC 10.0 K/mm3 (4.5-11.0) 12/03/17 05:13 RBC 4.28 M/mm3 (3.65-5.03) 12/03/17 05:13 Hgb 12.4 gm/dl (11.8-15.2) 12/03/17 05:13 Hct 36.0 % (35.5-45.6) 12/03/17 05:13 MCV 84 fl (84-94) 12/03/17 05:13 MCH 29 pg (28-32) 12/03/17 05:13 MCHC 34 % (32-34) 12/03/17 05:13 RDW 15.4 % (13.2-15.2) H 12/03/17 05:13 Plt Count 126 K/mm3 (140-440) L 12/03/17 05:13 Lymph % (Auto) 38.6 % (13.4-35.0) H 12/03/17 05:13 [place] % (Auto) 7.6 % (0.0-7.3) H 12/03/17 05:13 Eos % (Auto) 0.2 % (0.0-4.3) 12/03/17 05:13 Baso % (Auto) 0.6 % (0.0-1.8) 12/03/17 05:13 Lymph # 3.9 K/mm3 (1.2-5.4) 12/03/17 05:13 [place] # 0.8 K/mm3 (0.0-0.8) 12/03/17 05:13 Eos # 0.0 K/mm3 (0.0-0.4) 12/03/17 05:13 Baso # 0.1 K/mm3 (0.0-0.1) 12/03/17 05:13 Seg Neutrophils % 53.0 % (40.0-70.0) 12/03/17 05:13 Seg Neutrophils # 5.3 K/mm3 (1.8-7.7) 12/03/17 05:13 Sodium 144 mmol/L (137-145) 12/03/17 05:13 Potassium 3.6 mmol/L (3.6-5.0) 12/03/17 05:13 Chloride 107.2 mmol/L (98-107) H 12/03/17 05:13 Carbon Dioxide 22 mmol/L (22-30) 12/03/17 05:13 Anion Gap 18 mmol/L 12/03/17 05:13 BUN 8 mg/dL (9-20) L 12/03/17 05:13 Creatinine 0.9 mg/dL (0.8-1.5) 12/03/17 05:13 Estimated GFR > 60 ml/min 12/03/17 05:13 BUN/Creatinine Ratio 9 % 12/03/17 05:13 Glucose 95 mg/dL (75-100) 12/03/17 05:13 POC Glucose 121 (70-105) H 12/03/17 07:52 Hemoglobin A1c 10.0 % (4-6) H 12/02/17 09:45 Calcium 8.3 mg/dL (8.4-10.2) L 12/03/17 05:13 Total Bilirubin 0.20 mg/dL (0.1-1.2) 12/03/17 05:13 AST 13 units/L (5-40) 12/03/17 05:13 ALT 14 units/L (7-56) 12/03/17 05:13 Alkaline Phosphatase 61 units/L (35-129) 12/03/17 05:13 Troponin T < 0.010 ng/mL (0.00-0.029) 12/02/17 09:45 Total Protein 6.1 g/dL (6.3-8.2) L 12/03/17 05:13 Albumin 3.0 g/dL (3.9-5) L 12/03/17 05:13 Albumin/Globulin Ratio 1.0 % 12/03/17 05:13 TSH 4.120 mlU/mL (0.270-4.200) 12/02/17 09:45 Urine Color Yellow (Yellow) 12/02/17 12:33 Urine Turbidity Hazy (Clear) 12/02/17 12:33 Urine pH 6.0 (5.0-7.0) 12/02/17 12:33 Ur Specific [place] 1.018 (1.003-1.030) 12/02/17 12:33 Urine Protein <15 mg/dl mg/dL (Negative) 12/02/17 12:33 Urine Glucose (UA) >=500 mg/dL (Negative) 12/02/17 12:33 Urine Ketones Neg mg/dL (Negative) 12/02/17 12:33 Urine Blood Neg (Negative) 12/02/17 12:33 Urine Nitrite Neg (Negative) 12/02/17 12:33 Urine Bilirubin Neg (Negative) 12/02/17 12:33 Urine Urobilinogen < 2.0 mg/dL (<2.0) 12/02/17 12:33 Ur Leukocyte Esterase Mod (Negative) 12/02/17 12:33 Urine WBC (Auto) 89.0 /HPF (0.0-6.0) H 12/02/17 12:33 Urine RBC (Auto) 5.0 /HPF (0.0-6.0) 12/02/17 12:33 Urine Opiates Screen Presumptive negative 12/02/17 12:33 Urine Methadone Screen Presumptive negative 12/02/17 12:33 Ur Barbiturates Screen Presumptive negative 12/02/17 12:33 Valproic Acid 68.7 ug/mL (50-100) 12/02/17 09:45 Ur Phencyclidine Scrn Presumptive negative 12/02/17 12:33 Ur Amphetamines Screen Presumptive negative 12/02/17 12:33 U Benzodiazepines Scrn Presumptive negative 12/02/17 12:33 Urine Cocaine Screen Presumptive negative 12/02/17 12:33 U Marijuana (THC) Screen Presumptive negative 12/02/17 12:33 Drugs of Abuse Note Disclamer 12/02/17 12:33 Plasma/Serum Alcohol < 0.01 % (0-0.07) 12/02/17 09:45
[2017-12-03] MEDS: VISTARIL PO SCH (15:53)
[2017-12-03] MEDS: ROCEPHIN/NS 2 GM/100 ML 2 GM/100 ML BAG IV SCH (21:09)
[2017-12-03] MEDS: PRAVACHOL PO SCH (21:09)
[2017-12-03] MEDS: LANTUS SUB-Q SCH (22:52)
[2017-12-04] MEDS: HEPARIN SUB-Q SCH ×3 (06:03→21:51)
[2017-12-04] MEDS: HumaLOG SUB-Q SCH ×3 (09:08→22:25)
[2017-12-04] MEDS: GLUCOPHAGE PO SCH (09:12)
[2017-12-04] MEDS: SODIUM CHLORIDE FLUSH SYRINGE 10 ML IV SCH ×2 (09:12→21:51)
[2017-12-04] MEDS: PEPCID PO SCH ×2 (09:12→21:50)
[2017-12-04] MEDS: PLAVIX PO SCH (09:12)
[2017-12-04] MEDS: BABY ASPIRIN PO SCH (09:12)
[2017-12-04] MEDS: VISTARIL PO SCH (09:12)
[2017-12-04] MEDS: AMARYL PO SCH (09:12)
--- NOTE | 2017-12-04 11:06 | Progress Note ---
Assessment and Plan Assessment and plan: Sepsis. Present on admission. Patient meets criteria given the tachycardia, altered mental status and diagnosis of UTI. Follow-up blood and urine cultures. Continue sepsis pathway and follow-up lactic acid levels. UTI. Follow-up urine cultures. Toxic metabolic encephalopathy. Continue to treat underlying causes as above. Patient does have a history of schizophrenia. Schizophrenia. Psychiatric consultation. History of CVA with residual deficits. Continue Plavix. Hyperlipidemia. Continue statins. Diabetes mellitus type II, uncontrolled. Continue oral hypoglycemics and sliding scale. Continue Lantus 15 units at bedtime. Hypertension. Continue antihypertensive medications. Schizophrenia. Continue Clozaril and Depakote DVT prophylaxis. Continue Lovenox. History Interval history: No new issues overnight. Hospitalist Physical - Constitutional Vitals: Temp Pulse Resp BP Pulse Ox 97.8 F 59 L 18 112/74 100 12/04/17 05:35 12/04/17 05:35 12/04/17 05:35 12/04/17 05:35 12/04/17 05:35 General appearance: Present: no acute distress, well-nourished - EENT Eyes: Present: PERRL, EOM intact ENT: hearing intact, clear oral mucosa, dentition normal - Neck Neck: Present: supple, normal ROM - Respiratory Respiratory effort: normal Respiratory: bilateral: CTA - Cardiovascular Rhythm: regular Heart Sounds: Present: S1 & S2. Absent: gallop, rub - Extremities Extremities: no ischemia, No edema, Full ROM - Abdominal General gastrointestinal: soft, non-tender, non-distended, normal bowel sounds - Integumentary Integumentary: Present: clear, warm, dry - Neurologic Neurologic: CNII-XII intact, moves all extremities Results - Labs CBC & Chem 7: 12/03/17 05:13 12/03/17 05:13 Labs: Laboratory Last Values WBC 10.0 K/mm3 (4.5-11.0) 12/03/17 05:13 RBC 4.28 M/mm3 (3.65-5.03) 12/03/17 05:13 Hgb 12.4 gm/dl (11.8-15.2) 12/03/17 05:13 Hct 36.0 % (35.5-45.6) 12/03/17 05:13 MCV 84 fl (84-94) 12/03/17 05:13 MCH 29 pg (28-32) 12/03/17 05:13 MCHC 34 % (32-34) 12/03/17 05:13 RDW 15.4 % (13.2-15.2) H 12/03/17 05:13 Plt Count 126 K/mm3 (140-440) L 12/03/17 05:13 Lymph % (Auto) 38.6 % (13.4-35.0) H 12/03/17 05:13 [place] % (Auto) 7.6 % (0.0-7.3) H 12/03/17 05:13 Eos % (Auto) 0.2 % (0.0-4.3) 12/03/17 05:13 Baso % (Auto) 0.6 % (0.0-1.8) 12/03/17 05:13 Lymph # 3.9 K/mm3 (1.2-5.4) 12/03/17 05:13 [place] # 0.8 K/mm3 (0.0-0.8) 12/03/17 05:13 Eos # 0.0 K/mm3 (0.0-0.4) 12/03/17 05:13 Baso # 0.1 K/mm3 (0.0-0.1) 12/03/17 05:13 Seg Neutrophils % 53.0 % (40.0-70.0) 12/03/17 05:13 Seg Neutrophils # 5.3 K/mm3 (1.8-7.7) 12/03/17 05:13 Sodium 144 mmol/L (137-145) 12/03/17 05:13 Potassium 3.6 mmol/L (3.6-5.0) 12/03/17 05:13 Chloride 107.2 mmol/L (98-107) H 12/03/17 05:13 Carbon Dioxide 22 mmol/L (22-30) 12/03/17 05:13 Anion Gap 18 mmol/L 12/03/17 05:13 BUN 8 mg/dL (9-20) L 12/03/17 05:13 Creatinine 0.9 mg/dL (0.8-1.5) 12/03/17 05:13 Estimated GFR > 60 ml/min 12/03/17 05:13 BUN/Creatinine Ratio 9 % 12/03/17 05:13 Glucose 95 mg/dL (75-100) 12/03/17 05:13 POC Glucose 136 (70-105) H 12/04/17 08:27 Hemoglobin A1c 10.0 % (4-6) H 12/02/17 09:45 Lactic Acid 1.50 mmol/L (0.7-2.0) 12/03/17 10:49 Calcium 8.3 mg/dL (8.4-10.2) L 12/03/17 05:13 Total Bilirubin 0.20 mg/dL (0.1-1.2) 12/03/17 05:13 AST 13 units/L (5-40) 12/03/17 05:13 ALT 14 units/L (7-56) 12/03/17 05:13 Alkaline Phosphatase 61 units/L (35-129) 12/03/17 05:13 Troponin T < 0.010 ng/mL (0.00-0.029) 12/02/17 09:45 Total Protein 6.1 g/dL (6.3-8.2) L 12/03/17 05:13 Albumin 3.0 g/dL (3.9-5) L 12/03/17 05:13 Albumin/Globulin Ratio 1.0 % 12/03/17 05:13 TSH 4.120 mlU/mL (0.270-4.200) 12/02/17 09:45 Urine Color Yellow (Yellow) 12/02/17 12:33 Urine Turbidity Hazy (Clear) 12/02/17 12:33 Urine pH 6.0 (5.0-7.0) 12/02/17 12:33 Ur Specific [place] 1.018 (1.003-1.030) 12/02/17 12:33 Urine Protein <15 mg/dl mg/dL (Negative) 12/02/17 12:33 Urine Glucose (UA) >=500 mg/dL (Negative) 12/02/17 12:33 Urine Ketones Neg mg/dL (Negative) 12/02/17 12:33 Urine Blood Neg (Negative) 12/02/17 12:33 Urine Nitrite Neg (Negative) 12/02/17 12:33 Urine Bilirubin Neg (Negative) 12/02/17 12:33 Urine Urobilinogen < 2.0 mg/dL (<2.0) 12/02/17 12:33 Ur Leukocyte Esterase Mod (Negative) 12/02/17 12:33 Urine WBC (Auto) 89.0 /HPF (0.0-6.0) H 12/02/17 12:33 Urine RBC (Auto) 5.0 /HPF (0.0-6.0) 12/02/17 12:33 Urine Opiates Screen Presumptive negative 12/02/17 12:33 Urine Methadone Screen Presumptive negative 12/02/17 12:33 Ur Barbiturates Screen Presumptive negative 12/02/17 12:33 Valproic Acid 68.7 ug/mL (50-100) 12/02/17 09:45 Ur Phencyclidine Scrn Presumptive negative 12/02/17 12:33 Ur Amphetamines Screen Presumptive negative 12/02/17 12:33 U Benzodiazepines Scrn Presumptive negative 12/02/17 12:33 Urine Cocaine Screen Presumptive negative 12/02/17 12:33 U Marijuana (THC) Screen Presumptive negative 12/02/17 12:33 Drugs of Abuse Note Disclamer 12/02/17 12:33 Plasma/Serum Alcohol < 0.01 % (0-0.07) 12/02/17 09:45 Blood Type O POSITIVE 12/03/17 10:49 Antibody Screen Negative 12/03/17 10:49
[2017-12-04] MEDS: ROCEPHIN/NS 2 GM/100 ML 2 GM/100 ML BAG IV SCH (21:49)
[2017-12-04] MEDS: PRAVACHOL PO SCH (21:50)
[2017-12-04] MEDS: LANTUS SUB-Q SCH (23:04)
[2017-12-05] MEDS: HEPARIN SUB-Q SCH ×3 (05:32→23:20)
[2017-12-05] MEDS: HumaLOG SUB-Q SCH ×4 (08:47→22:00)
[2017-12-05] MEDS: PEPCID PO SCH ×2 (10:12→23:14)
[2017-12-05] MEDS: BABY ASPIRIN PO SCH (10:12)
[2017-12-05] MEDS: VISTARIL PO SCH (10:12)
[2017-12-05] MEDS: GLUCOPHAGE PO SCH (10:12)
[2017-12-05] MEDS: PLAVIX PO SCH (10:13)
[2017-12-05] MEDS: SODIUM CHLORIDE FLUSH SYRINGE 10 ML IV SCH ×2 (10:13→23:19)
[2017-12-05] MEDS: AMARYL PO SCH (10:13)
--- NOTE | 2017-12-05 10:58 | Progress Note ---
Assessment and Plan Assessment and plan: Sepsis. Present on admission. Blood cultures are negative 24 hours. However , urine culture reveals Enterobacter. UTI. Continue IV antibiotics. Toxic metabolic encephalopathy. Continue to treat underlying causes as above. Patient does have a history of schizophrenia. Schizophrenia. Psychiatric consultation. Continue Clozaril and Depakote. History of CVA with residual deficits. Continue Plavix. Hyperlipidemia. Continue statins. Diabetes mellitus type II, uncontrolled. Continue oral hypoglycemics and sliding scale. Continue Lantus 15 units at bedtime. Hypertension. Continue antihypertensive medications. DVT prophylaxis. Continue Lovenox. History Interval history: No new issues overnight. Hospitalist Physical - Constitutional Vitals: Temp Pulse Resp BP Pulse Ox 97.7 F 54 L 16 116/80 98 12/04/17 23:42 12/04/17 23:42 12/04/17 23:42 12/04/17 23:42 12/04/17 23:42 General appearance: Present: no acute distress, well-nourished - EENT Eyes: Present: PERRL, EOM intact ENT: hearing intact, clear oral mucosa, dentition normal - Neck Neck: Present: supple, normal ROM - Respiratory Respiratory effort: normal Respiratory: bilateral: CTA - Cardiovascular Rhythm: regular Heart Sounds: Present: S1 & S2. Absent: gallop, rub - Extremities Extremities: no ischemia, No edema, Full ROM - Abdominal General gastrointestinal: soft, non-tender, non-distended, normal bowel sounds - Integumentary Integumentary: Present: clear, warm, dry - Neurologic Neurologic: CNII-XII intact, moves all extremities Results - Labs CBC & Chem 7: 12/03/17 05:13 12/03/17 05:13 Labs: Laboratory Last Values WBC 10.0 K/mm3 (4.5-11.0) 12/03/17 05:13 RBC 4.28 M/mm3 (3.65-5.03) 12/03/17 05:13 Hgb 12.4 gm/dl (11.8-15.2) 12/03/17 05:13 Hct 36.0 % (35.5-45.6) 12/03/17 05:13 MCV 84 fl (84-94) 12/03/17 05:13 MCH 29 pg (28-32) 12/03/17 05:13 MCHC 34 % (32-34) 12/03/17 05:13 RDW 15.4 % (13.2-15.2) H 12/03/17 05:13 Plt Count 126 K/mm3 (140-440) L 12/03/17 05:13 Lymph % (Auto) 38.6 % (13.4-35.0) H 12/03/17 05:13 [place] % (Auto) 7.6 % (0.0-7.3) H 12/03/17 05:13 Eos % (Auto) 0.2 % (0.0-4.3) 12/03/17 05:13 Baso % (Auto) 0.6 % (0.0-1.8) 12/03/17 05:13 Lymph # 3.9 K/mm3 (1.2-5.4) 12/03/17 05:13 [place] # 0.8 K/mm3 (0.0-0.8) 12/03/17 05:13 Eos # 0.0 K/mm3 (0.0-0.4) 12/03/17 05:13 Baso # 0.1 K/mm3 (0.0-0.1) 12/03/17 05:13 Seg Neutrophils % 53.0 % (40.0-70.0) 12/03/17 05:13 Seg Neutrophils # 5.3 K/mm3 (1.8-7.7) 12/03/17 05:13 Sodium 144 mmol/L (137-145) 12/03/17 05:13 Potassium 3.6 mmol/L (3.6-5.0) 12/03/17 05:13 Chloride 107.2 mmol/L (98-107) H 12/03/17 05:13 Carbon Dioxide 22 mmol/L (22-30) 12/03/17 05:13 Anion Gap 18 mmol/L 12/03/17 05:13 BUN 8 mg/dL (9-20) L 12/03/17 05:13 Creatinine 0.9 mg/dL (0.8-1.5) 12/03/17 05:13 Estimated GFR > 60 ml/min 12/03/17 05:13 BUN/Creatinine Ratio 9 % 12/03/17 05:13 Glucose 95 mg/dL (75-100) 12/03/17 05:13 POC Glucose 121 (70-105) H 12/05/17 07:31 Hemoglobin A1c 10.0 % (4-6) H 12/02/17 09:45 Lactic Acid 1.50 mmol/L (0.7-2.0) 12/03/17 10:49 Calcium 8.3 mg/dL (8.4-10.2) L 12/03/17 05:13 Total Bilirubin 0.20 mg/dL (0.1-1.2) 12/03/17 05:13 AST 13 units/L (5-40) 12/03/17 05:13 ALT 14 units/L (7-56) 12/03/17 05:13 Alkaline Phosphatase 61 units/L (35-129) 12/03/17 05:13 Troponin T < 0.010 ng/mL (0.00-0.029) 12/02/17 09:45 Total Protein 6.1 g/dL (6.3-8.2) L 12/03/17 05:13 Albumin 3.0 g/dL (3.9-5) L 12/03/17 05:13 Albumin/Globulin Ratio 1.0 % 12/03/17 05:13 TSH 4.120 mlU/mL (0.270-4.200) 12/02/17 09:45 Urine Color Yellow (Yellow) 12/02/17 12:33 Urine Turbidity Hazy (Clear) 12/02/17 12:33 Urine pH 6.0 (5.0-7.0) 12/02/17 12:33 Ur Specific [place] 1.018 (1.003-1.030) 12/02/17 12:33 Urine Protein <15 mg/dl mg/dL (Negative) 12/02/17 12:33 Urine Glucose (UA) >=500 mg/dL (Negative) 12/02/17 12:33 Urine Ketones Neg mg/dL (Negative) 12/02/17 12:33 Urine Blood Neg (Negative) 12/02/17 12:33 Urine Nitrite Neg (Negative) 12/02/17 12:33 Urine Bilirubin Neg (Negative) 12/02/17 12:33 Urine Urobilinogen < 2.0 mg/dL (<2.0) 12/02/17 12:33 Ur Leukocyte Esterase Mod (Negative) 12/02/17 12:33 Urine WBC (Auto) 89.0 /HPF (0.0-6.0) H 12/02/17 12:33 Urine RBC (Auto) 5.0 /HPF (0.0-6.0) 12/02/17 12:33 Urine Opiates Screen Presumptive negative 12/02/17 12:33 Urine Methadone Screen Presumptive negative 12/02/17 12:33 Ur Barbiturates Screen Presumptive negative 12/02/17 12:33 Valproic Acid 68.7 ug/mL (50-100) 12/02/17 09:45 Ur Phencyclidine Scrn Presumptive negative 12/02/17 12:33 Ur Amphetamines Screen Presumptive negative 12/02/17 12:33 U Benzodiazepines Scrn Presumptive negative 12/02/17 12:33 Urine Cocaine Screen Presumptive negative 12/02/17 12:33 U Marijuana (THC) Screen Presumptive negative 12/02/17 12:33 Drugs of Abuse Note Disclamer 12/02/17 12:33 Plasma/Serum Alcohol < 0.01 % (0-0.07) 12/02/17 09:45 Blood Type O POSITIVE 12/03/17 10:49 Antibody Screen Negative 12/03/17 10:49
[2017-12-05 11:18] LABS: Lipase 10 units/L (13-60)
--- NOTE | 2017-12-05 13:32 | Consultation ---
History of Present Illness - Reason for Consult Consult date: 12/05/17 Reason for consult: Mental Health Evaluation Requesting physician: MELISSA MARX - Chief Complaint Chief complaint: "AMS" - History of Present Psychiatric Illness 52-year-old male presents to the emergency department via EMS for AMS. Today the patient is calm and pleasant, but confused during the assessment. He could not answer most questions logically. He did deny AVH's when asked. He attempted to recall numbers within 5 mins, but was unsuccessful. He was able to state the month and year of his only. This patient is a poor historian at this time. Medications and Allergies Allergies Allergy/AdvReac Type Severity Reaction Status Date / Time No Known Allergies Allergy Unverified 09/09/17 14:11 Home Medications Medication Instructions Recorded Confirmed Last Taken Type cloZAPine [Clozapine] 25 mg PO QHS 06/22/17 12/02/17 2 Days Ago History ~09/08/17 Aspirin [Aspirin BABY CHEW TAB] 81 mg PO QDAY #100 tab.chew 09/12/17 12/02/17 Unknown Rx Clopidogrel [Plavix] 75 mg PO QDAY #30 tablet 09/12/17 12/02/17 Unknown Rx Pravastatin [Pravachol] 40 mg PO QHS #30 tablet 09/12/17 12/02/17 Unknown Rx Divalproex ER [Depakote ER] 500 mg PO BID 12/02/17 12/02/17 Unknown History Glimepiride [Amaryl] 2 mg PO QDAY 12/02/17 12/02/17 Unknown History cloZAPine 100 mg PO QDAY 12/02/17 12/02/17 Unknown History hydrOXYZINE PAMOATE [Hydroxyzine 25 mg PO QDAY 12/02/17 12/02/17 Unknown History Pamoate] metFORMIN [Glucophage] 500 mg PO QDAY 12/02/17 12/02/17 Unknown History Active Meds: Active Medications Acetaminophen (Tylenol) 650 mg PO Q4H PRN PRN Reason: Pain MILD(1-3)/Fever >100.5/[place] Aspirin (Baby Aspirin) 81 mg PO QDAY [facility] Last Admin: 12/05/17 10:12 Dose: 81 mg Clopidogrel Bisulfate (Plavix) 75 mg PO QDAY [facility] Last Admin: 12/05/17 10:13 Dose: 75 mg Divalproex Sodium (Depakote Er) 500 mg PO BID [facility] Last Admin: 12/05/17 10:12 Dose: 500 mg Famotidine (Pepcid) 20 mg PO BID [facility] Last Admin: 12/05/17 10:12 Dose: 20 mg Glimepiride (Amaryl) 2 mg PO QDDIAB [facility] Last Admin: 12/05/17 10:13 Dose: 2 mg Heparin Sodium (Porcine) (Heparin) 5,000 unit SUB-Q Q8HR [facility] Last Admin: 12/05/17 13:03 Dose: 5,000 unit Hydroxyzine Pamoate (Vistaril) 25 mg PO QDAY [facility] Last Admin: 12/05/17 10:12 Dose: 25 mg Ceftriaxone Sodium (Rocephin/Ns 2 Gm/100 Ml) 2 gm in 100 mls @ 200 mls/hr IV Q24HR@2200 [facility]; Protocol Last Admin: 12/04/17 21:49 Dose: 200 mls/hr Insulin Glargine (Lantus) 15 units SUB-Q QHS [facility] Last Admin: 12/04/17 23:04 Dose: 15 units Insulin Human Lispro (Humalog) 0 unit SUB-Q ACHS [facility]; Protocol Last Admin: 12/05/17 13:03 Dose: 3 unit Metformin HCl (Glucophage) 500 mg PO QDDIAB [facility] Last Admin: 12/05/17 10:12 Dose: 500 mg Miscellaneous Medication (Clozapine [Clozapine]) 25 mg PO QHS [facility] Miscellaneous Medication (Clozapine [Clozapine]) 100 mg PO QDAY [facility] Morphine Sulfate (Morphine) 2 mg IV Q4H PRN PRN Reason: Pain, Moderate (4-6) Ondansetron HCl (Zofran) 4 mg IV Q8H PRN PRN Reason: Nausea And Vomiting Oxycodone/Acetaminophen (Percocet 5/325) 1 tab PO Q6H PRN PRN Reason: Pain, Moderate (4-6) Last Admin: 12/02/17 23:21 Dose: 1 tab Pravastatin Sodium (Pravachol) 40 mg PO QHS [facility] Last Admin: 12/04/17 21:50 Dose: 40 mg Sodium Chloride (Sodium Chloride Flush Syringe 10 Ml) 10 ml IV BID [facility] Last Admin: 12/05/17 10:13 Dose: 10 ml Sodium Chloride (Sodium Chloride Flush Syringe 10 Ml) 10 ml IV PRN PRN PRN Reason: LINE FLUSH Past psychiatric history - Past Medical History Past Medical History: diabetes, hypertension, seizures Past Surgical History: Other (Unable to obtain) - past Psychiatric treatment and history psychiatric treatment history: Unable to obtain a psy hx and a fam psy hx. - Social History Social history: other (Unable to obtain) Mental Status Exam - Vital signs Last Vital Signs Temp 98.7 F 12/05/17 11:50 Pulse 55 L 12/05/17 11:50 Resp 18 12/05/17 11:50 BP 123/79 12/05/17 11:50 Pulse Ox 99 12/05/17 11:50 - Exam Narrative exam: MSE: Appearance: calm Behavior: regular eye contact Speech: regular rate and tone Mood: "okay" Affect: congruent to mood Thought Process: confused Thought Content: denies SI/HI's and AVH's Motor Activity: lying in in bed Cognition: alert Insight: limited Judgment: limited Results Result Diagrams: 12/03/17 05:13 12/03/17 05:13 Abnormal lab results 12/04/17 12/04/17 12/05/17 Range/Units 16:36 21:23 07:31 POC Glucose 143 H 143 H 121 H (70-105) Lipase (13-60) units/L 12/05/17 12/05/17 Range/Units 10:33 10:57 POC Glucose 220 H (70-105) Lipase 10 L (13-60) units/L All other labs normal. Assessment and Plan Assessment and plan: Impression: Hx of Schizophrenia per the record. Delirium. Today the patient is confused during the assessment. VA 68.7. Medical: Toxic Metabolic Encephalopathy and a UTI Recommendation/Plan: Continue home medication Depakote 500 mg PO BID. Clozaril isn't on formulary. Will follow up with patient in 24 hours. Recommend Delirium precautions below: 1. Frequently reorient patient and involve him/her in their care (simple explanations of procedures, tests, medications). 2. Lights on and shades open during daytime hours. 3. Write date and goals of care in a visible place. 4. Try to avoid unnecessary interruptions to sleep during nighttime hours. 5. Obtain glasses, hearing aids from home if patient uses these at baseline. 6. Avoid medications that may exacerbate delirium (especially narcotics, benzodiazepines, barbiturates, ambien, lunesta, and medications with excessive anticholinergic properties). Recommend Tylenol for pain. The patient has Morphine ordered.
[2017-12-05] MEDS: PRAVACHOL PO SCH (23:15)
[2017-12-05] MEDS: ROCEPHIN/NS 2 GM/100 ML 2 GM/100 ML BAG IV SCH (23:15)
[2017-12-06] MEDS: LANTUS SUB-Q SCH (02:07)
[2017-12-06] MEDS: HEPARIN SUB-Q SCH ×2 (06:42→13:40)
[2017-12-06 06:58] LABS: Basophils # (Auto) 0.1 K/mm3 (0.0-0.1); Basophils % (Auto) 0.8 % (0.0-1.8); Eosinophils % (Auto) 0.3 % (0.0-4.3); Hematocrit 39.3 % (35.5-45.6); Lymphocytes # (Auto) 2.6 K/mm3 (1.2-5.4); Lymphocytes % (Auto) 33.5 % (13.4-35.0); Mean Corpuscular HGB Conc 33 % (32-34); Mean Corpuscular Hemoglobin 29 pg (28-32); Mean Corpuscular Volume 86 fl (84-94); Monocytes # (Auto) 0.5 K/mm3 (0.0-0.8); Platelet Count 131 K/mm3 (140-440); Red Blood Count 4.57 M/mm3 (3.65-5.03); Red Cell Distribution Width 15.8 % (13.2-15.2)
[2017-12-06 07:15] LABS: BUN/Creatinine Ratio 13; Blood Urea Nitrogen 12 mg/dL (9-20); Calcium 8.5 mg/dL (8.4-10.2); Hemolysis Index 13
--- NOTE | 2017-12-06 10:39 | Progress Note ---
Assessment and Plan Assessment and plan: Sepsis. Present on admission. Blood cultures are negative 48 hours. However , urine culture reveals Enterobacter. UTI. Continue IV antibiotics. Toxic metabolic encephalopathy. Continue to treat underlying causes as above. Patient does have a history of schizophrenia. Schizophrenia. Psychiatric consultation. Continue Clozaril and Depakote. History of CVA with residual deficits. Continue Plavix. Hyperlipidemia. Continue statins. Diabetes mellitus type II, uncontrolled. Continue oral hypoglycemics and sliding scale. Continue Lantus 15 units at bedtime. Hypertension. Continue antihypertensive medications. DVT prophylaxis. Continue Lovenox. Disposition. Patient will discharge to rehabilitation likely on Saturday. History Interval history: No new issues overnight. Hospitalist Physical - Constitutional Vitals: Temp Pulse Resp BP Pulse Ox 98.0 F 60 16 110/75 96 12/06/17 06:10 12/06/17 06:10 12/06/17 06:10 12/06/17 06:10 12/06/17 06:10 General appearance: Present: no acute distress, well-nourished - EENT Eyes: Present: PERRL, EOM intact ENT: hearing intact, clear oral mucosa, dentition normal - Neck Neck: Present: supple, normal ROM - Respiratory Respiratory effort: normal Respiratory: bilateral: CTA - Cardiovascular Rhythm: regular Heart Sounds: Present: S1 & S2. Absent: gallop, rub - Extremities Extremities: no ischemia, No edema, Full ROM - Abdominal General gastrointestinal: soft, non-tender, non-distended, normal bowel sounds - Integumentary Integumentary: Present: clear, warm, dry - Neurologic Neurologic: CNII-XII intact, moves all extremities Results - Labs CBC & Chem 7: 12/06/17 05:48 12/06/17 05:48 Labs: Laboratory Last Values WBC 7.8 K/mm3 (4.5-11.0) 12/06/17 05:48 RBC 4.57 M/mm3 (3.65-5.03) 12/06/17 05:48 Hgb 13.0 gm/dl (11.8-15.2) 12/06/17 05:48 Hct 39.3 % (35.5-45.6) 12/06/17 05:48 MCV 86 fl (84-94) 12/06/17 05:48 MCH 29 pg (28-32) 12/06/17 05:48 MCHC 33 % (32-34) 12/06/17 05:48 RDW 15.8 % (13.2-15.2) H 12/06/17 05:48 Plt Count 131 K/mm3 (140-440) L 12/06/17 05:48 Lymph % (Auto) 33.5 % (13.4-35.0) 12/06/17 05:48 [place] % (Auto) 7.0 % (0.0-7.3) 12/06/17 05:48 Eos % (Auto) 0.3 % (0.0-4.3) 12/06/17 05:48 Baso % (Auto) 0.8 % (0.0-1.8) 12/06/17 05:48 Lymph # 2.6 K/mm3 (1.2-5.4) 12/06/17 05:48 [place] # 0.5 K/mm3 (0.0-0.8) 12/06/17 05:48 Eos # 0.0 K/mm3 (0.0-0.4) 12/06/17 05:48 Baso # 0.1 K/mm3 (0.0-0.1) 12/06/17 05:48 Seg Neutrophils % 58.4 % (40.0-70.0) 12/06/17 05:48 Seg Neutrophils # 4.5 K/mm3 (1.8-7.7) 12/06/17 05:48 Sodium 144 mmol/L (137-145) 12/06/17 05:48 Potassium 3.7 mmol/L (3.6-5.0) 12/06/17 05:48 Chloride 107.7 mmol/L (98-107) H 12/06/17 05:48 Carbon Dioxide 25 mmol/L (22-30) 12/06/17 05:48 Anion Gap 15 mmol/L 12/06/17 05:48 BUN 12 mg/dL (9-20) 12/06/17 05:48 Creatinine 0.9 mg/dL (0.8-1.5) 12/06/17 05:48 Estimated GFR > 60 ml/min 12/06/17 05:48 BUN/Creatinine Ratio 13 % 12/06/17 05:48 Glucose 100 mg/dL (75-100) 12/06/17 05:48 POC Glucose 74 (70-105) 12/05/17 16:25 Hemoglobin A1c 10.0 % (4-6) H 12/02/17 09:45 Lactic Acid 1.50 mmol/L (0.7-2.0) 12/03/17 10:49 Calcium 8.5 mg/dL (8.4-10.2) 12/06/17 05:48 Total Bilirubin 0.20 mg/dL (0.1-1.2) 12/03/17 05:13 AST 13 units/L (5-40) 12/03/17 05:13 ALT 14 units/L (7-56) 12/03/17 05:13 Alkaline Phosphatase 61 units/L (35-129) 12/03/17 05:13 Troponin T < 0.010 ng/mL (0.00-0.029) 12/02/17 09:45 Total Protein 6.1 g/dL (6.3-8.2) L 12/03/17 05:13 Albumin 3.0 g/dL (3.9-5) L 12/03/17 05:13 Albumin/Globulin Ratio 1.0 % 12/03/17 05:13 Amylase 44 units/L (27-131) 12/05/17 10:33 Lipase 10 units/L (13-60) L 12/05/17 10:33 TSH 4.120 mlU/mL (0.270-4.200) 12/02/17 09:45 Urine Color Yellow (Yellow) 12/02/17 12:33 Urine Turbidity Hazy (Clear) 12/02/17 12:33 Urine pH 6.0 (5.0-7.0) 12/02/17 12:33 Ur Specific [place] 1.018 (1.003-1.030) 12/02/17 12:33 Urine Protein <15 mg/dl mg/dL (Negative) 12/02/17 12:33 Urine Glucose (UA) >=500 mg/dL (Negative) 12/02/17 12:33 Urine Ketones Neg mg/dL (Negative) 12/02/17 12:33 Urine Blood Neg (Negative) 12/02/17 12:33 Urine Nitrite Neg (Negative) 12/02/17 12:33 Urine Bilirubin Neg (Negative) 12/02/17 12:33 Urine Urobilinogen < 2.0 mg/dL (<2.0) 12/02/17 12:33 Ur Leukocyte Esterase Mod (Negative) 12/02/17 12:33 Urine WBC (Auto) 89.0 /HPF (0.0-6.0) H 12/02/17 12:33 Urine RBC (Auto) 5.0 /HPF (0.0-6.0) 12/02/17 12:33 Urine Opiates Screen Presumptive negative 12/02/17 12:33 Urine Methadone Screen Presumptive negative 12/02/17 12:33 Ur Barbiturates Screen Presumptive negative 12/02/17 12:33 Valproic Acid 68.7 ug/mL (50-100) 12/02/17 09:45 Ur Phencyclidine Scrn Presumptive negative 12/02/17 12:33 Ur Amphetamines Screen Presumptive negative 12/02/17 12:33 U Benzodiazepines Scrn Presumptive negative 12/02/17 12:33 Urine Cocaine Screen Presumptive negative 12/02/17 12:33 U Marijuana (THC) Screen Presumptive negative 12/02/17 12:33 Drugs of Abuse Note Disclamer 12/02/17 12:33 Plasma/Serum Alcohol < 0.01 % (0-0.07) 12/02/17 09:45 Blood Type O POSITIVE 12/03/17 10:49 Antibody Screen Negative 12/03/17 10:49
[2017-12-06] MEDS: PEPCID PO SCH (10:44)
[2017-12-06] MEDS: VISTARIL PO SCH (10:44)
[2017-12-06] MEDS: PLAVIX PO SCH (10:44)
[2017-12-06] MEDS: BABY ASPIRIN PO SCH (10:45)
[2017-12-06] MEDS: GLUCOPHAGE PO SCH (10:45)
[2017-12-06] MEDS: AMARYL PO SCH (10:45)
[2017-12-06] MEDS: HumaLOG SUB-Q SCH ×3 (10:45→17:33)
[2017-12-06] MEDS: SODIUM CHLORIDE FLUSH SYRINGE 10 ML IV SCH (10:46)
--- NOTE | 2017-12-06 12:06 | Progress Note ---
Subjective - Reason for Consult Reason for consult: confused - Chief Complaint Chief complaint: Subjective: The patient remains confused and unable to provide a coherent narrative this morning. Patient does not oriented to time place or situation. Furthermore, patient continues to have significant psychomotor retardation and disorganization patient and his speech patterns. Mental status examination: This is a 52-year-old male tall for her age lying in hospital bed in hospital gon who is displaying limited attention to his ADLs, with very poor dentition. Furthermore, patient appears to have a fairly fixed gaze and significant psychomotor retardation. Patient not aggressive or agitated on examination. Mood appears mildly dysphoric with a constricted affect. Speech has a latency and was slow soft but mostly clear coherent. Thought process was disorganized and perseverative. Thought content was difficult to assess secondary to disorganization and or confusion. Concentration attention was impaired insight and judgment was limited. Plan: Depakote has been initiated, but Clozaril was held secondary to it being nonformulary. At the current time we will initiate Zyprexa low dose as a supplement to the hospital. Mental Status Exam - Vital signs Last Vital Signs Temp 98.0 F 12/06/17 06:10 Pulse 60 12/06/17 06:10 Resp 16 12/06/17 06:10 BP 110/75 12/06/17 06:10 Pulse Ox 96 12/06/17 06:10
[2017-12-07] MEDS: ROCEPHIN/NS 2 GM/100 ML 2 GM/100 ML BAG IV SCH ×2 (00:03→22:15)
[2017-12-07] MEDS: PEPCID PO SCH ×3 (00:07→22:12)
[2017-12-07] MEDS: SODIUM CHLORIDE FLUSH SYRINGE 10 ML IV SCH ×3 (00:08→22:09)
[2017-12-07] MEDS: HEPARIN SUB-Q SCH ×4 (00:09→22:14)
[2017-12-07] MEDS: LANTUS SUB-Q SCH ×2 (00:10→22:18)
[2017-12-07] MEDS: HumaLOG SUB-Q SCH ×5 (02:28→22:18)
[2017-12-07] MEDS: PRAVACHOL PO SCH ×2 (02:30→22:12)
--- NOTE | 2017-12-07 09:25 | Progress Note ---
Assessment and Plan Assessment and plan: Sepsis. Present on admission. Blood cultures are negative. However, urine culture reveals Enterobacter. UTI. Continue IV antibiotics. Toxic metabolic encephalopathy. Continue to treat underlying causes as above. Patient does have a history of schizophrenia. Schizophrenia. Psychiatric following and recommends that CRP, troponins and CPK be checked to ensure patient is not having myocarditis, as there is a small likelihood while on Clozaril.. History of CVA with residual deficits. Continue Plavix. Hyperlipidemia. Continue statins. Diabetes mellitus type II, uncontrolled. Continue oral hypoglycemics and sliding scale. Continue Lantus 15 units at bedtime. Hypertension. Continue antihypertensive medications. DVT prophylaxis. Continue Lovenox. Disposition. Patient will discharge to rehabilitation likely on Saturday. History Interval history: No new issues overnight. Hospitalist Physical - Constitutional Vitals: Temp Pulse Resp BP Pulse Ox 98.2 F 50 L 18 104/74 98 12/07/17 06:08 12/07/17 06:08 12/07/17 06:08 12/07/17 06:08 12/07/17 06:08 General appearance: Present: no acute distress, well-nourished - EENT Eyes: Present: PERRL, EOM intact ENT: hearing intact, clear oral mucosa, dentition normal - Neck Neck: Present: supple, normal ROM - Respiratory Respiratory effort: normal Respiratory: bilateral: CTA - Cardiovascular Rhythm: regular Heart Sounds: Present: S1 & S2. Absent: gallop, rub - Extremities Extremities: no ischemia, No edema, Full ROM - Abdominal General gastrointestinal: soft, non-tender, non-distended, normal bowel sounds - Integumentary Integumentary: Present: clear, warm, dry - Neurologic Neurologic: CNII-XII intact, moves all extremities Results - Labs CBC & Chem 7: 12/06/17 05:48 12/06/17 05:48 Labs: Laboratory Last Values WBC 7.8 K/mm3 (4.5-11.0) 12/06/17 05:48 RBC 4.57 M/mm3 (3.65-5.03) 12/06/17 05:48 Hgb 13.0 gm/dl (11.8-15.2) 12/06/17 05:48 Hct 39.3 % (35.5-45.6) 12/06/17 05:48 MCV 86 fl (84-94) 12/06/17 05:48 MCH 29 pg (28-32) 12/06/17 05:48 MCHC 33 % (32-34) 12/06/17 05:48 RDW 15.8 % (13.2-15.2) H 12/06/17 05:48 Plt Count 131 K/mm3 (140-440) L 12/06/17 05:48 Lymph % (Auto) 33.5 % (13.4-35.0) 12/06/17 05:48 [place] % (Auto) 7.0 % (0.0-7.3) 12/06/17 05:48 Eos % (Auto) 0.3 % (0.0-4.3) 12/06/17 05:48 Baso % (Auto) 0.8 % (0.0-1.8) 12/06/17 05:48 Lymph # 2.6 K/mm3 (1.2-5.4) 12/06/17 05:48 [place] # 0.5 K/mm3 (0.0-0.8) 12/06/17 05:48 Eos # 0.0 K/mm3 (0.0-0.4) 12/06/17 05:48 Baso # 0.1 K/mm3 (0.0-0.1) 12/06/17 05:48 Seg Neutrophils % 58.4 % (40.0-70.0) 12/06/17 05:48 Seg Neutrophils # 4.5 K/mm3 (1.8-7.7) 12/06/17 05:48 Sodium 144 mmol/L (137-145) 12/06/17 05:48 Potassium 3.7 mmol/L (3.6-5.0) 12/06/17 05:48 Chloride 107.7 mmol/L (98-107) H 12/06/17 05:48 Carbon Dioxide 25 mmol/L (22-30) 12/06/17 05:48 Anion Gap 15 mmol/L 12/06/17 05:48 BUN 12 mg/dL (9-20) 12/06/17 05:48 Creatinine 0.9 mg/dL (0.8-1.5) 12/06/17 05:48 Estimated GFR > 60 ml/min 12/06/17 05:48 BUN/Creatinine Ratio 13 % 12/06/17 05:48 Glucose 100 mg/dL (75-100) 12/06/17 05:48 POC Glucose 106 (70-105) H 12/07/17 08:25 Hemoglobin A1c 10.0 % (4-6) H 12/02/17 09:45 Lactic Acid 1.50 mmol/L (0.7-2.0) 12/03/17 10:49 Calcium 8.5 mg/dL (8.4-10.2) 12/06/17 05:48 Total Bilirubin 0.20 mg/dL (0.1-1.2) 12/03/17 05:13 AST 13 units/L (5-40) 12/03/17 05:13 ALT 14 units/L (7-56) 12/03/17 05:13 Alkaline Phosphatase 61 units/L (35-129) 12/03/17 05:13 Troponin T < 0.010 ng/mL (0.00-0.029) 12/02/17 09:45 Total Protein 6.1 g/dL (6.3-8.2) L 12/03/17 05:13 Albumin 3.0 g/dL (3.9-5) L 12/03/17 05:13 Albumin/Globulin Ratio 1.0 % 12/03/17 05:13 Amylase 44 units/L (27-131) 12/05/17 10:33 Lipase 10 units/L (13-60) L 12/05/17 10:33 TSH 4.120 mlU/mL (0.270-4.200) 12/02/17 09:45 Urine Color Yellow (Yellow) 12/02/17 12:33 Urine Turbidity Hazy (Clear) 12/02/17 12:33 Urine pH 6.0 (5.0-7.0) 12/02/17 12:33 Ur Specific [place] 1.018 (1.003-1.030) 12/02/17 12:33 Urine Protein <15 mg/dl mg/dL (Negative) 12/02/17 12:33 Urine Glucose (UA) >=500 mg/dL (Negative) 12/02/17 12:33 Urine Ketones Neg mg/dL (Negative) 12/02/17 12:33 Urine Blood Neg (Negative) 12/02/17 12:33 Urine Nitrite Neg (Negative) 12/02/17 12:33 Urine Bilirubin Neg (Negative) 12/02/17 12:33 Urine Urobilinogen < 2.0 mg/dL (<2.0) 12/02/17 12:33 Ur Leukocyte Esterase Mod (Negative) 12/02/17 12:33 Urine WBC (Auto) 89.0 /HPF (0.0-6.0) H 12/02/17 12:33 Urine RBC (Auto) 5.0 /HPF (0.0-6.0) 12/02/17 12:33 Urine Opiates Screen Presumptive negative 12/02/17 12:33 Urine Methadone Screen Presumptive negative 12/02/17 12:33 Ur Barbiturates Screen Presumptive negative 12/02/17 12:33 Valproic Acid 68.7 ug/mL (50-100) 12/02/17 09:45 Ur Phencyclidine Scrn Presumptive negative 12/02/17 12:33 Ur Amphetamines Screen Presumptive negative 12/02/17 12:33 U Benzodiazepines Scrn Presumptive negative 12/02/17 12:33 Urine Cocaine Screen Presumptive negative 12/02/17 12:33 U Marijuana (THC) Screen Presumptive negative 12/02/17 12:33 Drugs of Abuse Note Disclamer 12/02/17 12:33 Plasma/Serum Alcohol < 0.01 % (0-0.07) 12/02/17 09:45 Blood Type O POSITIVE 12/03/17 10:49 Antibody Screen Negative 12/03/17 10:49
[2017-12-07] MEDS: GLUCOPHAGE PO SCH (09:46)
[2017-12-07] MEDS: PLAVIX PO SCH (09:46)
[2017-12-07] MEDS: BABY ASPIRIN PO SCH (09:46)
[2017-12-07] MEDS: AMARYL PO SCH (09:46)
[2017-12-07] MEDS: VISTARIL PO SCH (09:47)
--- NOTE | 2017-12-07 16:52 | Progress Note ---
Subjective - Reason for Consult Consult date: 12/07/17 Reason for consult: follow up - Chief Complaint Chief complaint: "hi" The patient remains confused and unable to provide a coherent narrative this morning. Patient is not oriented to time. He stated his name and birthday when asked. He states he lives in a retirement. He also reports he usually takes depakote and clozapine. Open ended questions were asked. He was able to answer some questions logically. He said his appetite is "real good." Echolalia present intermittently. He said his neck hurt and was observed to hold it upright. Staff reports they have offered him a pillow but he continues to hold his head upright. ? dystonia There was concern about cardiac effects/myocarditis from clozapine. CK and troponin resulted and both elevated. The nurse was asked to inform the hospitalist, and the notes indicate she did. Mental Status Exam - Vital signs Last Vital Signs Temp 98.0 F 12/07/17 12:25 Pulse 53 L 12/07/17 12:25 Resp 16 12/07/17 12:25 BP 105/68 12/07/17 12:25 Pulse Ox 100 12/07/17 12:25 - Exam Orientation: place, person Affect: flat Mood: other (indifferent) Thought content: other (no spontaneous speech) Thought Process: Disorganized Perceptions: other (unable to assess) Speech: other (echolalia intermittently) Concentration: focused Level of consciousness: alert Interaction: cooperative Assessment and Plan Impression: schizophrenia r/o acute dystonia-unlikely r/o drug induced tardive dystonia Plan: Continue Zyprexa low dose and hospitalist to address elevated CK and troponin
[2017-12-08 03:29] LABS: C-Reactive Protein 4.2 mg/dL (0.00-1.30); Chol/HDL Ratio 3.55 %
[2017-12-08] MEDS: HEPARIN SUB-Q SCH ×3 (06:37→22:36)
[2017-12-08] MEDS: HumaLOG SUB-Q SCH ×4 (08:36→22:10)
[2017-12-08] MEDS: GLUCOPHAGE PO SCH (09:10)
--- NOTE | 2017-12-08 09:46 | Progress Note ---
Assessment and Plan Assessment and plan: Sepsis. Present on admission. Blood cultures are negative. However, urine culture reveals Enterobacter. UTI. Continue IV antibiotics. Toxic metabolic encephalopathy. Continue to treat underlying causes as above. Patient does have a history of schizophrenia. Schizophrenia. Continue Zyprexa low dose. CRP, CPK and troponin levels are essentially near normal History of CVA with residual deficits. Continue Plavix. Hyperlipidemia. Continue statins. Diabetes mellitus type II, uncontrolled. Continue oral hypoglycemics and sliding scale. Continue Lantus 15 units at bedtime. Hypertension. Continue antihypertensive medications. DVT prophylaxis. Continue Lovenox. Disposition. Patient will discharge to rehabilitation likely on Saturday. History Interval history: No new issues overnight. Hospitalist Physical - Constitutional Vitals: Temp Pulse Resp BP Pulse Ox 97.8 F 68 18 97/74 95 12/08/17 05:26 12/08/17 05:26 12/08/17 05:26 12/08/17 05:26 12/08/17 05:26 General appearance: Present: no acute distress, well-nourished - EENT Eyes: Present: PERRL, EOM intact ENT: hearing intact, clear oral mucosa, dentition normal - Neck Neck: Present: supple, normal ROM - Respiratory Respiratory effort: normal Respiratory: bilateral: CTA - Cardiovascular Rhythm: regular Heart Sounds: Present: S1 & S2. Absent: gallop, rub - Extremities Extremities: no ischemia, No edema, Full ROM - Abdominal General gastrointestinal: soft, non-tender, non-distended, normal bowel sounds - Integumentary Integumentary: Present: clear, warm, dry - Neurologic Neurologic: CNII-XII intact, moves all extremities Results - Labs CBC & Chem 7: 12/06/17 05:48 12/06/17 05:48 Labs: Laboratory Last Values WBC 7.8 K/mm3 (4.5-11.0) 12/06/17 05:48 RBC 4.57 M/mm3 (3.65-5.03) 12/06/17 05:48 Hgb 13.0 gm/dl (11.8-15.2) 12/06/17 05:48 Hct 39.3 % (35.5-45.6) 12/06/17 05:48 MCV 86 fl (84-94) 12/06/17 05:48 MCH 29 pg (28-32) 12/06/17 05:48 MCHC 33 % (32-34) 12/06/17 05:48 RDW 15.8 % (13.2-15.2) H 12/06/17 05:48 Plt Count 131 K/mm3 (140-440) L 12/06/17 05:48 Lymph % (Auto) 33.5 % (13.4-35.0) 12/06/17 05:48 [place] % (Auto) 7.0 % (0.0-7.3) 12/06/17 05:48 Eos % (Auto) 0.3 % (0.0-4.3) 12/06/17 05:48 Baso % (Auto) 0.8 % (0.0-1.8) 12/06/17 05:48 Lymph # 2.6 K/mm3 (1.2-5.4) 12/06/17 05:48 [place] # 0.5 K/mm3 (0.0-0.8) 12/06/17 05:48 Eos # 0.0 K/mm3 (0.0-0.4) 12/06/17 05:48 Baso # 0.1 K/mm3 (0.0-0.1) 12/06/17 05:48 Seg Neutrophils % 58.4 % (40.0-70.0) 12/06/17 05:48 Seg Neutrophils # 4.5 K/mm3 (1.8-7.7) 12/06/17 05:48 Sodium 144 mmol/L (137-145) 12/06/17 05:48 Potassium 3.7 mmol/L (3.6-5.0) 12/06/17 05:48 Chloride 107.7 mmol/L (98-107) H 12/06/17 05:48 Carbon Dioxide 25 mmol/L (22-30) 12/06/17 05:48 Anion Gap 15 mmol/L 12/06/17 05:48 BUN 12 mg/dL (9-20) 12/06/17 05:48 Creatinine 0.9 mg/dL (0.8-1.5) 12/06/17 05:48 Estimated GFR > 60 ml/min 12/06/17 05:48 BUN/Creatinine Ratio 13 % 12/06/17 05:48 Glucose 100 mg/dL (75-100) 12/06/17 05:48 POC Glucose 99 (70-105) 12/08/17 07:48 Hemoglobin A1c 10.0 % (4-6) H 12/02/17 09:45 Lactic Acid 1.50 mmol/L (0.7-2.0) 12/03/17 10:49 Calcium 8.5 mg/dL (8.4-10.2) 12/06/17 05:48 Total Bilirubin 0.20 mg/dL (0.1-1.2) 12/03/17 05:13 AST 13 units/L (5-40) 12/03/17 05:13 ALT 14 units/L (7-56) 12/03/17 05:13 Alkaline Phosphatase 61 units/L (35-129) 12/03/17 05:13 Total Creatine Kinase 567 units/L (55-170) H 12/07/17 10:54 Troponin T 0.034 ng/mL (0.00-0.029) H 12/07/17 10:54 C-Reactive Protein 4.20 mg/dL (0.00-1.30) H 12/07/17 10:54 Total Protein 6.1 g/dL (6.3-8.2) L 12/03/17 05:13 Albumin 3.0 g/dL (3.9-5) L 12/03/17 05:13 Albumin/Globulin Ratio 1.0 % 12/03/17 05:13 Triglycerides 118 mg/dL (2-149) 12/07/17 10:54 Cholesterol 160 mg/dL (50-199) 12/07/17 10:54 LDL Cholesterol Direct 108 mg/dL (50-130) 12/07/17 10:54 HDL Cholesterol 45 mg/dL (40-59) 12/07/17 10:54 Cholesterol/HDL Ratio 3.55 % 12/07/17 10:54 Amylase 44 units/L (27-131) 12/05/17 10:33 Lipase 10 units/L (13-60) L 12/05/17 10:33 TSH 4.120 mlU/mL (0.270-4.200) 12/02/17 09:45 Urine Color Yellow (Yellow) 12/02/17 12:33 Urine Turbidity Hazy (Clear) 12/02/17 12:33 Urine pH 6.0 (5.0-7.0) 12/02/17 12:33 Ur Specific [place] 1.018 (1.003-1.030) 12/02/17 12:33 Urine Protein <15 mg/dl mg/dL (Negative) 12/02/17 12:33 Urine Glucose (UA) >=500 mg/dL (Negative) 12/02/17 12:33 Urine Ketones Neg mg/dL (Negative) 12/02/17 12:33 Urine Blood Neg (Negative) 12/02/17 12:33 Urine Nitrite Neg (Negative) 12/02/17 12:33 Urine Bilirubin Neg (Negative) 12/02/17 12:33 Urine Urobilinogen < 2.0 mg/dL (<2.0) 12/02/17 12:33 Ur Leukocyte Esterase Mod (Negative) 12/02/17 12:33 Urine WBC (Auto) 89.0 /HPF (0.0-6.0) H 12/02/17 12:33 Urine RBC (Auto) 5.0 /HPF (0.0-6.0) 12/02/17 12:33 Urine Opiates Screen Presumptive negative 12/02/17 12:33 Urine Methadone Screen Presumptive negative 12/02/17 12:33 Ur Barbiturates Screen Presumptive negative 12/02/17 12:33 Valproic Acid 68.7 ug/mL (50-100) 12/02/17 09:45 Ur Phencyclidine Scrn Presumptive negative 12/02/17 12:33 Ur Amphetamines Screen Presumptive negative 12/02/17 12:33 U Benzodiazepines Scrn Presumptive negative 12/02/17 12:33 Urine Cocaine Screen Presumptive negative 12/02/17 12:33 U Marijuana (THC) Screen Presumptive negative 12/02/17 12:33 Drugs of Abuse Note Disclamer 12/02/17 12:33 Plasma/Serum Alcohol < 0.01 % (0-0.07) 12/02/17 09:45 Blood Type O POSITIVE 12/03/17 10:49 Antibody Screen Negative 12/03/17 10:49
[2017-12-08] MEDS: PLAVIX PO SCH (10:31)
[2017-12-08] MEDS: BABY ASPIRIN PO SCH (10:31)
[2017-12-08] MEDS: VISTARIL PO SCH (10:31)
[2017-12-08] MEDS: PEPCID PO SCH ×2 (10:31→22:34)
[2017-12-08] MEDS: AMARYL PO SCH (10:31)
[2017-12-08] MEDS: SODIUM CHLORIDE FLUSH SYRINGE 10 ML IV SCH ×2 (10:32→22:10)
--- NOTE | 2017-12-08 21:31 | Progress Note ---
Subjective - Reason for Consult Consult date: 12/08/17 Reason for consult: follow up - Chief Complaint Chief complaint: "good" The patient states he is being discharged tomorrow. He does not elaborate. Open ended questions were asked. He was able to answer some questions logically. Echolalia present intermittently. He was laughing inappropriately. He was able to name his psychiatrist, Dr. Mata. He was resting comfortably today and denied pain. CK of 567, troponin 0.034, and CRP 4.2 results from 12/07/17-addressed by the medical team. Mental Status Exam - Vital signs Last Vital Signs Temp 97.9 F 12/08/17 11:54 Pulse 60 12/08/17 11:54 Resp 18 12/08/17 11:54 BP 105/79 12/08/17 11:54 Pulse Ox 100 12/08/17 11:54 - Exam Narrative exam: Orientation: place, person Affect: flat Mood: other (indifferent) Thought content: other (no spontaneous speech) Thought Process: Disorganized Perceptions: laughing inappropriately Speech: other (echolalia intermittently) Concentration: focused Level of consciousness: alert Interaction: cooperative Assessment and Plan Impression: schizophrenia r/o acute dystonia-unlikely r/o drug induced tardive dystonia Plan: Continue Zyprexa low dose and hospitalist to address elevated CK and troponin When he returns home, his psychiatrist, Dr. Mata, needs to be contacted. It is recommended he go home with a prescription for zyprexa and stay on it until the clozapine can be addressed by his outpatient psychiatrist. He should not resume clozapine without authorization from his psychiatrist, Dr. Mata.
[2017-12-08] MEDS: LANTUS SUB-Q SCH (22:10)
[2017-12-08] MEDS: ROCEPHIN/NS 2 GM/100 ML 2 GM/100 ML BAG IV SCH (22:31)
[2017-12-08] MEDS: PRAVACHOL PO SCH (22:34)
[2017-12-09] MEDS: HEPARIN SUB-Q SCH ×3 (06:54→22:20)
[2017-12-09] MEDS: HumaLOG SUB-Q SCH ×4 (07:30→22:26)
[2017-12-09] MEDS: GLUCOPHAGE PO SCH (08:00)
[2017-12-09] MEDS: AMARYL PO SCH (08:00)
[2017-12-09] MEDS: SODIUM CHLORIDE FLUSH SYRINGE 10 ML IV SCH ×2 (09:55→22:21)
[2017-12-09] MEDS: PEPCID PO SCH ×2 (09:56→22:20)
[2017-12-09] MEDS: PLAVIX PO SCH (09:56)
[2017-12-09] MEDS: BABY ASPIRIN PO SCH (09:56)
[2017-12-09] MEDS: VISTARIL PO SCH (10:00)
--- NOTE | 2017-12-09 10:12 | Progress Note ---
Assessment and Plan Assessment and plan: Sepsis. Present on admission. Blood cultures are negative. However, urine culture reveals Enterobacter. UTI. Continue IV antibiotics. Toxic metabolic encephalopathy. Continue to treat underlying causes as above. Patient does have a history of schizophrenia. Schizophrenia. Continue Zyprexa low dose. CRP, CPK and troponin levels are essentially near normal History of CVA with residual deficits. Continue Plavix. Hyperlipidemia. Continue statins. Diabetes mellitus type II, uncontrolled. Continue oral hypoglycemics and sliding scale. Continue Lantus 15 units at bedtime. Hypertension. Continue antihypertensive medications. DVT prophylaxis. Continue Lovenox. Disposition. Patient will discharge to rehabilitation next 1-2 days History Interval history: No new issues overnight. Hospitalist Physical - Constitutional Vitals: Temp Pulse Resp BP Pulse Ox 98.2 F 57 L 18 102/63 98 12/09/17 05:59 12/09/17 05:59 12/09/17 05:59 12/09/17 05:59 12/09/17 05:59 General appearance: Present: no acute distress, well-nourished - EENT Eyes: Present: PERRL, EOM intact ENT: hearing intact, clear oral mucosa, dentition normal - Neck Neck: Present: supple, normal ROM - Respiratory Respiratory effort: normal Respiratory: bilateral: CTA - Cardiovascular Rhythm: regular Heart Sounds: Present: S1 & S2. Absent: gallop, rub - Extremities Extremities: no ischemia, No edema, Full ROM - Abdominal General gastrointestinal: soft, non-tender, non-distended, normal bowel sounds - Integumentary Integumentary: Present: clear, warm, dry - Neurologic Neurologic: CNII-XII intact, moves all extremities Results - Labs CBC & Chem 7: 12/06/17 05:48 12/06/17 05:48 Labs: Laboratory Last Values WBC 7.8 K/mm3 (4.5-11.0) 12/06/17 05:48 RBC 4.57 M/mm3 (3.65-5.03) 12/06/17 05:48 Hgb 13.0 gm/dl (11.8-15.2) 12/06/17 05:48 Hct 39.3 % (35.5-45.6) 12/06/17 05:48 MCV 86 fl (84-94) 12/06/17 05:48 MCH 29 pg (28-32) 12/06/17 05:48 MCHC 33 % (32-34) 12/06/17 05:48 RDW 15.8 % (13.2-15.2) H 12/06/17 05:48 Plt Count 131 K/mm3 (140-440) L 12/06/17 05:48 Lymph % (Auto) 33.5 % (13.4-35.0) 12/06/17 05:48 [place] % (Auto) 7.0 % (0.0-7.3) 12/06/17 05:48 Eos % (Auto) 0.3 % (0.0-4.3) 12/06/17 05:48 Baso % (Auto) 0.8 % (0.0-1.8) 12/06/17 05:48 Lymph # 2.6 K/mm3 (1.2-5.4) 12/06/17 05:48 [place] # 0.5 K/mm3 (0.0-0.8) 12/06/17 05:48 Eos # 0.0 K/mm3 (0.0-0.4) 12/06/17 05:48 Baso # 0.1 K/mm3 (0.0-0.1) 12/06/17 05:48 Seg Neutrophils % 58.4 % (40.0-70.0) 12/06/17 05:48 Seg Neutrophils # 4.5 K/mm3 (1.8-7.7) 12/06/17 05:48 Sodium 144 mmol/L (137-145) 12/06/17 05:48 Potassium 3.7 mmol/L (3.6-5.0) 12/06/17 05:48 Chloride 107.7 mmol/L (98-107) H 12/06/17 05:48 Carbon Dioxide 25 mmol/L (22-30) 12/06/17 05:48 Anion Gap 15 mmol/L 12/06/17 05:48 BUN 12 mg/dL (9-20) 12/06/17 05:48 Creatinine 0.9 mg/dL (0.8-1.5) 12/06/17 05:48 Estimated GFR > 60 ml/min 12/06/17 05:48 BUN/Creatinine Ratio 13 % 12/06/17 05:48 Glucose 100 mg/dL (75-100) 12/06/17 05:48 POC Glucose 126 (70-105) H 12/09/17 08:02 Hemoglobin A1c 10.0 % (4-6) H 12/02/17 09:45 Lactic Acid 1.50 mmol/L (0.7-2.0) 12/03/17 10:49 Calcium 8.5 mg/dL (8.4-10.2) 12/06/17 05:48 Total Bilirubin 0.20 mg/dL (0.1-1.2) 12/03/17 05:13 AST 13 units/L (5-40) 12/03/17 05:13 ALT 14 units/L (7-56) 12/03/17 05:13 Alkaline Phosphatase 61 units/L (35-129) 12/03/17 05:13 Total Creatine Kinase 567 units/L (55-170) H 12/07/17 10:54 Troponin T 0.034 ng/mL (0.00-0.029) H 12/07/17 10:54 C-Reactive Protein 4.20 mg/dL (0.00-1.30) H 12/07/17 10:54 Total Protein 6.1 g/dL (6.3-8.2) L 12/03/17 05:13 Albumin 3.0 g/dL (3.9-5) L 12/03/17 05:13 Albumin/Globulin Ratio 1.0 % 12/03/17 05:13 Triglycerides 118 mg/dL (2-149) 12/07/17 10:54 Cholesterol 160 mg/dL (50-199) 12/07/17 10:54 LDL Cholesterol Direct 108 mg/dL (50-130) 12/07/17 10:54 HDL Cholesterol 45 mg/dL (40-59) 12/07/17 10:54 Cholesterol/HDL Ratio 3.55 % 12/07/17 10:54 Amylase 44 units/L (27-131) 12/05/17 10:33 Lipase 10 units/L (13-60) L 12/05/17 10:33 TSH 4.120 mlU/mL (0.270-4.200) 12/02/17 09:45 Urine Color Yellow (Yellow) 12/02/17 12:33 Urine Turbidity Hazy (Clear) 12/02/17 12:33 Urine pH 6.0 (5.0-7.0) 12/02/17 12:33 Ur Specific [place] 1.018 (1.003-1.030) 12/02/17 12:33 Urine Protein <15 mg/dl mg/dL (Negative) 12/02/17 12:33 Urine Glucose (UA) >=500 mg/dL (Negative) 12/02/17 12:33 Urine Ketones Neg mg/dL (Negative) 12/02/17 12:33 Urine Blood Neg (Negative) 12/02/17 12:33 Urine Nitrite Neg (Negative) 12/02/17 12:33 Urine Bilirubin Neg (Negative) 12/02/17 12:33 Urine Urobilinogen < 2.0 mg/dL (<2.0) 12/02/17 12:33 Ur Leukocyte Esterase Mod (Negative) 12/02/17 12:33 Urine WBC (Auto) 89.0 /HPF (0.0-6.0) H 12/02/17 12:33 Urine RBC (Auto) 5.0 /HPF (0.0-6.0) 12/02/17 12:33 Urine Opiates Screen Presumptive negative 12/02/17 12:33 Urine Methadone Screen Presumptive negative 12/02/17 12:33 Ur Barbiturates Screen Presumptive negative 12/02/17 12:33 Valproic Acid 37.1 ug/mL (50-100) L 12/09/17 07:49 Ur Phencyclidine Scrn Presumptive negative 12/02/17 12:33 Ur Amphetamines Screen Presumptive negative 12/02/17 12:33 U Benzodiazepines Scrn Presumptive negative 12/02/17 12:33 Urine Cocaine Screen Presumptive negative 12/02/17 12:33 U Marijuana (THC) Screen Presumptive negative 12/02/17 12:33 Drugs of Abuse Note Disclamer 12/02/17 12:33 Plasma/Serum Alcohol < 0.01 % (0-0.07) 12/02/17 09:45 Blood Type O POSITIVE 12/03/17 10:49 Antibody Screen Negative 12/03/17 10:49
[2017-12-09] MEDS ORDERED: NACL 0.9% 1000 ML 1,000 ML IV SCH (11:00)
--- NOTE | 2017-12-09 11:02 | Progress Note ---
Subjective - Reason for Consult Consult date: 12/09/17 Reason for consult: Psychiatry Follow-up - Chief Complaint Chief complaint: "How are you" 52-year-old male presents to the emergency department via EMS for AMS. Today the patient is calm and cooperative during the assessment. He is more organized with his thoughts than his initial consultation. He stated that he has a psychiatrist Dr Mata when asked. He still laugh inappropriately. He denies SI/HI's and AVH's. He denies any side effects of his medication. CK of 567, troponin 0.034, and CRP 4.2 results from 12/07/17-addressed by the medical team. Mental Status Exam - Vital signs Last Vital Signs Temp 98.2 F 12/09/17 05:59 Pulse 57 L 12/09/17 05:59 Resp 18 12/09/17 05:59 BP 102/63 12/09/17 05:59 Pulse Ox 98 12/09/17 05:59 - Exam Narrative exam: MSE: Appearance: calm, cooperative Behavior: regular eye contact Speech: regular rate and tone Mood: "okay" Affect: congruent to mood Thought Process: circumstantial Thought Content: denies SI/HI's and AVH's Motor Activity: sitting up in bed Cognition: A/O x 3 Insight: variable Judgment: variable Assessment and Plan Impression: Hx of Schizophrenia per the record. Delirium. Today the patient is confused during the assessment. VA 37.1 . Medical: Toxic Metabolic Encephalopathy and a UTI Recommendation/Plan: Continue home medication Depakote 500 mg PO BID. Also, continue Zyprexa 2.5 mg PO HS for schizophrenia. The patient can follow up with his psychiatrist Dr. Mata for outpatient psy services. He should not resume Clozapine without authorization from his psychiatrist Dr. Mata.
[2017-12-09] MEDS: ROCEPHIN/NS 2 GM/100 ML 2 GM/100 ML BAG IV SCH (22:19)
[2017-12-09] MEDS: PRAVACHOL PO SCH (22:20)
[2017-12-09] MEDS: LANTUS SUB-Q SCH (22:26)
[2017-12-10] MEDS: HEPARIN SUB-Q SCH ×2 (06:39→14:00)
[2017-12-10 06:51] LABS: Basophils # (Auto) 0.1 K/mm3 (0.0-0.1); Basophils % (Auto) 1.2 % (0.0-1.8); Eosinophils # (Auto) 0.1 K/mm3 (0.0-0.4); Eosinophils % (Auto) 1.9 % (0.0-4.3); Hematocrit 39.2 % (35.5-45.6); Hemoglobin 13.2 gm/dl (11.8-15.2); Lymphocytes # (Auto) 2.6 K/mm3 (1.2-5.4); Lymphocytes % (Auto) 41.3 % (13.4-35.0); Mean Corpuscular HGB Conc 34 % (32-34); Mean Corpuscular Hemoglobin 29 pg (28-32); Mean Corpuscular Volume 86 fl (84-94); Monocytes # (Auto) 0.6 K/mm3 (0.0-0.8); Monocytes % (Auto) 9.7 % (0.0-7.3); Platelet Count 150 K/mm3 (140-440); Red Blood Count 4.57 M/mm3 (3.65-5.03)
[2017-12-10 07:18] LABS: BUN/Creatinine Ratio 15; Blood Urea Nitrogen 15 mg/dL (9-20); Calcium 8.7 mg/dL (8.4-10.2); Hemolysis Index 4
[2017-12-10] MEDS: HumaLOG SUB-Q SCH ×3 (07:30→16:30)
[2017-12-10] MEDS: GLUCOPHAGE PO SCH (08:00)
[2017-12-10] MEDS: AMARYL PO SCH (08:00)
[2017-12-10] MEDS: PLAVIX PO SCH (09:39)
[2017-12-10] MEDS: BABY ASPIRIN PO SCH (09:39)
[2017-12-10] MEDS: VISTARIL PO SCH (09:39)
[2017-12-10] MEDS: PEPCID PO SCH (09:41)
[2017-12-10] MEDS: SODIUM CHLORIDE FLUSH SYRINGE 10 ML IV SCH (09:42)
--- NOTE | 2017-12-10 10:03 | Progress Note ---
Subjective - Reason for Consult Consult date: 12/10/17 Reason for consult: Psychiatry Follow-up - Chief Complaint Chief complaint: "Good morning" 52-year-old male presents to the emergency department via EMS for AMS. Today the patient is calm and cooperative during the assessment. He stated that he maybe discharged today. He denies SI/HI's and AVH's. He denies any side effects of his medication. CK of 567, troponin 0.034, and CRP 4.2 results from 12/07/17-addressed by the medical team. Mental Status Exam - Vital signs Last Vital Signs Temp 98.1 F 12/10/17 05:24 Pulse 45 L 12/10/17 05:24 Resp 16 12/10/17 05:24 BP 96/66 12/10/17 05:24 Pulse Ox 99 12/10/17 05:24 - Exam Narrative exam: MSE: Appearance: calm, cooperative Behavior: regular eye contact Speech: regular rate and tone Mood: "okay" Affect: congruent to mood Thought Process: circumstantial Thought Content: denies SI/HI's and AVH's Motor Activity: sitting up in bed Cognition: A/O x 3 Insight: fair Judgment: fair Assessment and Plan Impression: Hx of Schizophrenia per the record. Delirium has resolved. Today the patient is calm and cooperative during the assessment. VA 37.1. Medical: Toxic Metabolic Encephalopathy and a UTI Recommendation/Plan: Continue home medication Depakote 500 mg PO BID. Also, continue Zyprexa 2.5 mg PO HS for schizophrenia. The patient can follow up with his psychiatrist Dr. Mata for outpatient psy services. He should not resume Clozapine without authorization from his psychiatrist Dr. Mata. Psychiatry sign off.
--- NOTE | 2017-12-10 12:04 | Discharge Summary ---
Providers - Providers Date of Admission: 12/02/17 11:32 Attending physician: DAVIDE LERMA MD 12/04/17 11:06 Consult to Mental Health [CONS] Routine Reason For Exam: schizophrenia, AMS Place consult to:: derrick/LESLIE Notified:: LESLIE Phone number called:: [phone] Was contact made?: Yes If yes, spoke with:: [place]. Time called:: 11:57 Primary care physician: NOVELTY DIPPER Hospitalization Reason for admission: metabolic encephalopathy, UTI Condition: Stable Pertinent studies: CT head Multiple chronic infarcts which are unchanged since 09/21/17. No acute intracranial process is identified. Hospital course: 52-year-old black male with history of type 2 diabetes hyperlipidemia coronary artery disease and hypertension and psychiatric problems comes in for altered sensorium. No fever no chills. Patient has been altered for 2 days since yesterday. No precipitating factors. No shortness of breath. Patient has schizophrenia and questionable seizure history. Also previous CVA. CT head was negative. Patient had UTI and treated with IV Rocephin. Patient improved markedly and discharged home with his home health. Patient said he has enough supply of medications at home. Psych consult appreciated. patient was hemodynamically stable at the time of discharge. Disposition: [id number]/[id number] [facility] Time spent for discharge: 34 minutes - Discharge Diagnoses (1) Acute encephalopathy Status: Acute (2) Altered mental status Status: Acute Qualifiers: Altered mental status type: unspecified Qualified Code(s): R41.82 - Altered mental status, unspecified (3) UTI (urinary tract infection) Status: Acute Qualifiers: Urinary tract infection type: acute cystitis Hematuria presence: without hematuria Qualified Code(s): N30.00 - Acute cystitis without hematuria (4) History of CVA with residual deficit Status: Chronic (5) Hyperlipidemia Status: Chronic Qualifiers: Hyperlipidemia type: mixed hyperlipidemia Qualified Code(s): E78.2 - Mixed hyperlipidemia (6) Hypertension Status: Chronic Qualifiers: Hypertension type: essential hypertension Qualified Code(s): I10 - Essential (primary) hypertension Core Measure Documentation - Palliative Care Palliative Care/ Comfort Measures: Not Applicable - Core Measures Any of the following diagnoses?: history only (CVA) Exam - Physical Exam Narrative exam: Not in cardiopulmonary distress. The patient appeared well nourished and normally developed. Vital signs as documented. Head exam is unremarkable. No scleral icterus . Neck is without jugular venous distension, thyromegaly, or carotid bruits. Lungs are clear to auscultation. Cardiac exam reveals regular rate and Rhythm. First and second heart sounds normal. No murmurs, rubs or gallops. Abdominal exam reveals normal bowel sounds, no masses, no organomegaly and no aortic enlargement. Extremities are nonedematous and both femoral and pedal pulses are normal. [employer]ORY SUPERINTENDENT: Alert and oriented 3. No focal weakness. - Constitutional Vitals: Temp Pulse Resp BP Pulse Ox 98.1 F 45 L 16 96/66 99 12/10/17 05:24 12/10/17 05:24 12/10/17 05:24 12/10/17 05:24 12/10/17 05:24 Plan Activity: no restrictions Weight Bearing Status: Full Weight Bearing Diet: low cholesterol, diabetic Additional Instructions: F/U at [facility] in 1-2 weeks Follow up with: PRIMARY CAREMD [Primary Care Provider] - 3-5 Days
[2017-12-10 18:01] VITALS: BP 100/65
== END 2017-12-10 19:09 | DRG 871 ==
LOC: ED 09:17 → 3A 11:32
PROVIDERS: ADMIT Internal Medicine; ATTEND Internal Medicine
DX: A41.9 Sepsis, unspecified organism (principal); G92 Toxic encephalopathy; N30.00 Acute cystitis without hematuria; E11.65 Type 2 diabetes mellitus with hyperglycemia; I10 Essential (primary) hypertension; F20.9 Schizophrenia, unspecified; F17.200 Nicotine dependence, unspecified, uncomplicated; Z79.82 Long term (current) use of aspirin; Z79.84 Long term (current) use of oral hypoglycemic drugs; Z79.899 Other long term (current) drug therapy; I25.10 Atherosclerotic heart disease of native coronary artery without angina pectoris; Z82.49 Family history of ischemic heart disease and other diseases of the circulatory system; I69.30 Unspecified sequelae of cerebral infarction; E78.2 Mixed hyperlipidemia
CPT/HCPCS: 36415; 70450; 80048; 80053; 80061; 80164; 80307; 80320; 81001; 82140; 82150; 82550; 82962; 83036; 83690; 84443; 84484; 85025; 86140; 86850; 86900; 86901; 87040; 87076; 87086; 87186; 93005; 93010; 96374; A9270-GY; G0480; J0696; J1644; J1815; J7030; J7040; Q0177

== ENCOUNTER 2018-01-01 17:59 | Emergency (ER) | payer MEDICARE ==
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
[2018-01-01 19:40] LABS: Basophils # (Auto) 0.1 K/mm3 (0.0-0.1); Basophils % (Auto) 0.9 % (0.0-1.8); Eosinophils # (Auto) 0.2 K/mm3 (0.0-0.4); Eosinophils % (Auto) 1.8 % (0.0-4.3); Hematocrit 37.6 % (35.5-45.6); Hemoglobin 12.8 gm/dl (11.8-15.2); Lymphocytes # (Auto) 3.6 K/mm3 (1.2-5.4); Lymphocytes % (Auto) 39.5 % (13.4-35.0); Mean Corpuscular HGB Conc 34 % (32-34); Mean Corpuscular Hemoglobin 30 pg (28-32); Mean Corpuscular Volume 87 fl (84-94); Monocytes # (Auto) 0.6 K/mm3 (0.0-0.8); Monocytes % (Auto) 6.4 % (0.0-7.3); Platelet Count 172 K/mm3 (140-440); Red Blood Count 4.33 M/mm3 (3.65-5.03); Red Cell Distribution Width 15.4 % (13.2-15.2)
[2018-01-01 19:52] LABS: BUN/Creatinine Ratio 8; Blood Urea Nitrogen 7 mg/dL (9-20); Calcium 8.9 mg/dL (8.4-10.2); Hemolysis Index 116
[2018-01-01 20:05] LABS: Bilirubin,Urine NEG (Negative); Blood,Urine NEG (Negative); Color,Urine Straw (Yellow); Mucus,Urine FEW /HPF; Protein,Urine <15 mg/dL mg/dL (Negative); Urobilinogen,Urine < 2.0 mg/dL (<2.0)
[2018-01-01 20:12] LABS: Amphetamine Screen,Urine PRESUMPTIVE NEGATIVE; Benzodiazepines Screen,Urine PRESUMPTIVE NEGATIVE; Cannabinoid Screen,Urine PRESUMPTIVE NEGATIVE; Cocaine Screen,Urine PRESUMPTIVE NEGATIVE; Methadone Screen,Urine PRESUMPTIVE NEGATIVE; Opiate Screen,Urine PRESUMPTIVE NEGATIVE
[2018-01-01] MEDS: LEVAQUIN PO SCH (23:58)
[2018-01-01] MEDS: BENADRYL IM PRN (23:58)
[2018-01-02] MEDS ORDERED: HALDOL ONE (00:39)
[2018-01-02 08:22] LABS: Lipase 8 units/L (13-60)
[2018-01-02 08:32] LABS: Alanine Aminotransferase 16 units/L (7-56)
--- NOTE | 2018-01-02 13:49 | Consultation ---
History of Present Illness - Reason for Consult Consult date: 01/02/18 Reason for consult: Mental Health Evaluation Requesting physician: BARRY DAI - Chief Complaint Chief complaint: "Juan crisostomo' - History of Present Psychiatric Illness 52-year-old male presenting with a chief complaint of inappropriate sexual behavior. This patient is known to me. Today the patient is calm, cooperative, but disorganized during the assessment. He had to be redirected several times to keep him on topic. He denies being sexual inappropriate when asked. He stated that he was trying to zip his pants, "that's all." The patient was hyper verbal and looking around his room intermittently, possibly responding to some type of stimuli. He stated that the voices are "awful" that he's experiencing. No gestures of SI/HI's. Medications and Allergies Allergies Allergy/AdvReac Type Severity Reaction Status Date / Time No Known Allergies Allergy Unverified 09/09/17 14:11 Home Medications Medication Instructions Recorded Confirmed Last Taken Type cloZAPine [Clozapine] 25 mg PO QHS 06/22/17 12/02/17 2 Days Ago History ~09/08/17 Aspirin [Aspirin BABY CHEW TAB] 81 mg PO QDAY #100 tab.chew 09/12/17 12/02/17 Unknown Rx Clopidogrel [Plavix] 75 mg PO QDAY #30 tablet 09/12/17 12/02/17 Unknown Rx Pravastatin [Pravachol] 40 mg PO QHS #30 tablet 09/12/17 12/02/17 Unknown Rx Divalproex ER [Depakote ER] 500 mg PO BID 12/02/17 12/02/17 Unknown History Glimepiride [Amaryl] 2 mg PO QDAY 12/02/17 12/02/17 Unknown History cloZAPine 100 mg PO QDAY 12/02/17 12/02/17 Unknown History hydrOXYzine pamoate [Hydroxyzine 25 mg PO QDAY 12/02/17 12/02/17 Unknown History Pamoate] metFORMIN [Glucophage] 500 mg PO QDAY 12/02/17 12/02/17 Unknown History levoFLOXacin [Levaquin TAB] 250 mg PO QDAY #7 tablet 01/01/18 Unknown Rx Active Meds: Active Medications Diphenhydramine HCl (Benadryl) 50 mg IM Q6H PRN PRN Reason: Agitation Last Admin: 01/01/18 23:58 Dose: 50 mg Divalproex Sodium (Depakote Er) 500 mg PO BID [facility] Last Admin: 01/02/18 10:51 Dose: 500 mg Levofloxacin (Levaquin) 250 mg PO QDAY@2200 [facility] Last Admin: 01/01/18 23:58 Dose: 250 mg Past psychiatric history - Past Medical History Past Medical History: diabetes, seizures Past Surgical History: Other (Unable to obtain) - past Psychiatric treatment and history psychiatric treatment history: The patient is seen by Dr Mata for outpatient psy services. Unable to obtain a [facility] psy hx. - Social History Social history: other (Reside at a residential.) Mental Status Exam - Vital signs Last Vital Signs Temp 98.8 F 01/02/18 11:00 Pulse 82 01/02/18 11:00 Resp 18 01/02/18 11:00 BP 116/79 01/02/18 11:00 Pulse Ox 99 01/02/18 11:00 - Exam Narrative exam: MSE: Appearance: calm Behavior: poor eye contact Speech: pressured speech Mood: unable to assess Affect: flat Thought Process: disorganized Thought Content: no gestures of SI/HI's and VH's, paranoid Motor Activity: lying in bed Cognition: A/O x 3 Insight: poor Judgment: poor Results Result Diagrams: 01/01/18 19:17 01/01/18 19:17 Abnormal lab results 01/01/18 01/01/18 01/01/18 Range/Units 19:17 19:17 19:17 RDW 15.4 H (13.2-15.2) % Lymph % (Auto) 39.5 H (13.4-35.0) % BUN 7 L (9-20) mg/dL Glucose 155 H (75-100) mg/dL Lipase (13-60) units/L Urine WBC (Auto) (0.0-6.0) /HPF Salicylates < 0.3 L (2.8-20.0) mg/dL Acetaminophen (10.0-30.0) ug/mL 01/01/18 01/01/18 01/02/18 Range/Units 19:17 Unknown 07:48 RDW (13.2-15.2) % Lymph % (Auto) (13.4-35.0) % BUN (9-20) mg/dL Glucose (75-100) mg/dL Lipase 8 L (13-60) units/L Urine WBC (Auto) 10.0 H (0.0-6.0) /HPF Salicylates (2.8-20.0) mg/dL Acetaminophen < 5.0 L (10.0-30.0) ug/mL All other labs normal. Assessment and Plan Assessment and plan: Impression: Schizophrenia, Paranoid Type. Today the patient is calm, cooperative , but disorganized during the assessment. UDS is negative. DDx: Schizoaffective DO, R/O Bipolar DO with psychosis Recommendation/Plan: Continue 1013 with placement to inpatient psy services. The patient takes Clozaril, but that medication isn't on formulary. Continue Depakote 500 mg PO BID for mood and start Zyprexa 2.5 mg PO HS for psychosis. Attemped to discuss possible metabolic side effects of Zyprexa with the patient.
[2018-01-02] MEDS: LEVAQUIN PO SCH (23:03)
[2018-01-02] MEDS: BENADRYL IM PRN (23:04)
--- NOTE | 2018-01-03 15:07 | Progress Note ---
Subjective - Reason for Consult Consult date: 01/03/18 Reason for consult: Psychiatry Follow-up - Chief Complaint Chief complaint: "Hello" 52-year-old male presenting with a chief complaint of inappropriate sexual behavior. This patient is known to me. Today the patient is calm and cooperative during the assessment. The patient presented with loose associations during the interview and had to be redirected several times to keep him on topic. He did state that the voices are "decreasing." Per the staff , no behavioral disturbances overnight. He denies SI/HI's and AVH's. He denies any side effects of his medications. Mental Status Exam - Vital signs Last Vital Signs Temp 98.7 F 01/02/18 20:29 Pulse 82 01/02/18 11:00 Resp 14 01/02/18 20:29 BP 122/80 01/02/18 20:29 Pulse Ox 99 01/02/18 11:00 - Exam Narrative exam: MSE: Appearance: calm Behavior: regular eye contact Speech: regular rate and tone Mood: "fine" Affect: flat Thought Process: loose associations Thought Content: denies SI/HI's and VH's Motor Activity: lying in bed Cognition: A/O x 3 Insight: poor Judgment: variable Assessment and Plan mpression: Schizophrenia, Paranoid Type. Today the patient is calm, cooperative , but disorganized during the assessment. UDS is negative. DDx: Schizoaffective DO, R/O Bipolar DO with psychosis Recommendation/Plan: Continue 1013 with placement to inpatient psy services. The patient takes Clozaril, but that medication isn't on formulary. Continue Depakote 500 mg PO BID for mood and Zyprexa 2.5 mg PO HS for psychosis. Attempted to discuss possible metabolic side effects of Zyprexa with the patient.
[2018-01-03] MEDS: LEVAQUIN PO SCH (23:34)
[2018-01-04] MEDS ORDERED: LOVENOX SUB-Q ONE (11:49)
--- NOTE | 2018-01-04 17:48 | Progress Note ---
Subjective - Reason for Consult Consult date: 01/04/18 Reason for consult: follow up - Chief Complaint Chief complaint: "tired" 52-year-old male presenting with a chief complaint of inappropriate sexual behavior. Today the patient is calm and cooperative during the assessment. The patient presented with loose associations during the interview and had to be redirected several times to keep him on topic. He states he always hears voices. He denies SI/HI's and AVH's. He denies any side effects of his medications. Staff reports he is masturbating often. Mental Status Exam - Vital signs Last Vital Signs Temp 98.9 F 01/04/18 10:42 Pulse 73 01/04/18 10:42 Resp 20 01/04/18 10:42 BP 124/80 01/04/18 10:42 Pulse Ox 98 01/04/18 10:42 - Exam Narrative exam: MSE: Appearance: calm Behavior: regular eye contact Speech: regular rate and tone Mood: "fine" Affect: flat Thought Process: loose associations Thought Content: denies SI/HI's and VH's Motor Activity: no abnormal movements Cognition: A/O x 3 Insight: poor Judgment: variable Assessment and Plan Impression: Schizophrenia, Paranoid Type. Today the patient is calm, cooperative , but disorganized during the assessment. UDS is negative. DDx: Schizoaffective DO, R/O Bipolar DO with psychosis Recommendation/Plan: Continue 1013 with placement to inpatient psy services. The patient takes Clozaril, but that medication isn't on formulary. Continue Depakote 500 mg PO BID for mood and increase Zyprexa to 5mg bid for psychosis. He is agreeable.
[2018-01-04] MEDS: LEVAQUIN PO SCH (22:30)
[2018-01-04] MEDS ORDERED: MOTRIN ONE (23:12)
--- NOTE | 2018-01-05 23:24 | Progress Note ---
Subjective - Reason for Consult Consult date: 01/05/18 Reason for consult: Psychiatric Follow-up Evaluation - Chief Complaint Chief complaint: "I feel sleepy" Patient is a 52-year-old male presenting with a chief complaint of inappropriate sexual behavior. Today the patient is calm and cooperative during the assessment. He has to be redirected several times to keep him on topic. He endorses auditory hallucinations that ask him questions and converse with him. For example, they ask " what's wrong?, Do I know you? and tell me that I hurt people." Paranoid thoughts are noted. Patient believes that other people are trying to kill him. He denies SI/HI's. Patient is medication compliant. He denies any side effects of his medications. Per staff patient often masturbates. Mental Status Exam - Vital signs Last Vital Signs Temp 97.8 F 01/05/18 13:16 Pulse 47 L 01/05/18 13:16 Resp 17 01/05/18 13:17 BP 105/68 01/05/18 13:16 Pulse Ox 99 01/05/18 13:17 - Exam Narrative exam: Mental Status Exam General Appearance: Causally Dressed-hospital gown Eye Contact: Intermittent Orientation: Alert and oriented x 4 ( person, place, time, and situation) Attitude/Behavior: Cooperative Sensorium: Distracted Psychomotor & Musculoskeletal Activity: Laying in bed Mood: "Sleepy." Affect: Constricted Speech/Language: Normal rate and tone Thought Processes: Tangential, circumstantial Thought Content: Impoverished, paranoid Perception: + auditory hallucinations Concentration/Attention: Impaired Suicidal Ideations/Plan: Patient denies Homicidal Ideations/Plan: Patient denies Insight: Poor Judgment: Poor Assessment and Plan Impression: Schizophrenia, Paranoid Type. Today the patient is calm and cooperative during the assessment. He endorses both paranoid thoughts and auditory hallucinations. His thought process is tangential and circumstantial. He denies SI/HI's. UDS is negative. DDx: Schizoaffective DO, R/O Bipolar DO with psychosis Recommendation/Plan: 1. Continue 1013 with placement to inpatient psychiatric services. 2. Continue Depakote 500 mg PO BID for mood and increase Zyprexa to 5mg bid for psychosis. He is agreeable. 3. Will monitor psychosis, mood, sexual inappropriateness, sleep, appetite, compliance, and side effects.
[2018-01-05] MEDS: AMARYL PO SCH (23:43)
[2018-01-05] MEDS: LEVAQUIN PO SCH (23:43)
[2018-01-06] MEDS: AMARYL PO SCH (09:50)
--- NOTE | 2018-01-06 10:26 | Consultation ---
History of Present Illness - Chief Complaint Chief complaint: "I feel sleepy" Patient is a 52-year-old male presenting with a chief complaint of inappropriate sexual behavior. Today the patient is calm and cooperative during the assessment. He has to be redirected several times to keep him on topic. He endorses auditory hallucinations that ask him questions and converse with him. For example, they ask " what's wrong?, Do I know you? and tell me that I hurt people." Paranoid thoughts are noted. Patient believes that other people are trying to kill him. He denies SI/HI's. Patient is medication compliant. He denies any side effects of his medications. Per staff patient often masturbates. Medications and Allergies Allergies Allergy/AdvReac Type Severity Reaction Status Date / Time No Known Allergies Allergy Unverified 09/09/17 14:11 Home Medications Medication Instructions Recorded Confirmed Last Taken Type cloZAPine [Clozapine] 25 mg PO QHS 06/22/17 01/05/18 2 Days Ago History ~09/08/17 Aspirin [Aspirin BABY CHEW TAB] 81 mg PO QDAY #100 tab.chew 09/12/17 01/05/18 Unknown Rx Clopidogrel [Plavix] 75 mg PO QDAY #30 tablet 09/12/17 01/05/18 Unknown Rx Pravastatin [Pravachol] 40 mg PO QHS #30 tablet 09/12/17 01/05/18 Unknown Rx Divalproex ER [Depakote ER] 500 mg PO BID 12/02/17 01/05/18 Unknown History Glimepiride [Amaryl] 2 mg PO QDAY 12/02/17 01/05/18 Unknown History cloZAPine 100 mg PO QDAY 12/02/17 01/05/18 Unknown History hydrOXYzine pamoate [Hydroxyzine 25 mg PO QDAY 12/02/17 01/05/18 Unknown History Pamoate] metFORMIN [Glucophage] 500 mg PO QDAY 12/02/17 01/05/18 Unknown History levoFLOXacin [Levaquin TAB] 250 mg PO QDAY #7 tablet 01/01/18 Unknown Rx Active Meds: Active Medications Diphenhydramine HCl (Benadryl) 50 mg IM Q6H PRN PRN Reason: Agitation Last Admin: 01/02/18 23:04 Dose: 50 mg Divalproex Sodium (Depakote Er) 500 mg PO BID [facility] Last Admin: 01/06/18 09:50 Dose: 500 mg Glimepiride (Amaryl) 2 mg PO QDDIAB [facility] Last Admin: 01/06/18 09:50 Dose: 2 mg Olanzapine (Zyprexa) 5 mg PO BID [facility] Last Admin: 01/05/18 22:02 Dose: 5 mg Mental Status Exam - Vital signs Last Vital Signs Temp 98.9 F 01/05/18 23:48 Pulse 84 01/05/18 23:48 Resp 18 01/05/18 23:48 BP 107/80 01/05/18 23:48 Pulse Ox 99 01/05/18 23:48 Results Result Diagrams: 01/01/18 19:17 01/01/18 19:17 Abnormal lab results 01/05/18 Range/Units 22:38 POC Glucose 399 H (70-105) All other labs normal.
--- NOTE | 2018-01-06 10:28 | Progress Note ---
Subjective - Reason for Consult Consult date: 01/06/18 Reason for consult: Psychiatry Follow-up - Chief Complaint Chief complaint: "I am okay" 52-year-old male presenting with a chief complaint of inappropriate sexual behavior. This patient is known to me. Today the patient is calm and cooperative during the assessment. He stated that he feel "okay." He denies hearing voices when asked. The patient denies SI/HI's and AVH's. Per the staff, no behavioral disturbances last night. No indications of side effects of his medications. Mental Status Exam - Vital signs Last Vital Signs Temp 98.9 F 01/05/18 23:48 Pulse 84 01/05/18 23:48 Resp 18 01/05/18 23:48 BP 107/80 01/05/18 23:48 Pulse Ox 99 01/05/18 23:48 - Exam Narrative exam: MSE: Appearance: calm, cooperative Behavior: regular eye contact Speech: regular rate and tone Mood: "okay" Affect: congruent to mood Thought Process: circumstantial Thought Content: denies SI/HI's and AVH's Motor Activity: lying in bed Cognition: A/O x 3 Insight: variable Judgment: variable Assessment and Plan mpression: Schizophrenia, Paranoid Type. Today the patient is calm and cooperative during the assessment. UDS is negative. DDx: Schizoaffective DO, R/O Bipolar DO with psychosis Recommendation/Plan: Reevaluate 1013 in 24 hours to determine proper dispo. The patient takes Clozaril, but that medication isn't on formulary. Continue Depakote 500 mg PO BID for mood and Zyprexa 5 mg PO BID for psychosis. Discussed possible metabolic side effects of Zyprexa with the patient.
[2018-01-07] MEDS: AMARYL PO SCH (09:29)
[2018-01-07] MEDS: GLUCOPHAGE PO SCH ×2 (09:29→17:44)
--- NOTE | 2018-01-07 10:45 | Progress Note ---
Subjective - Reason for Consult Consult date: 01/07/18 Reason for consult: Psychiatry Follow-up - Chief Complaint Chief complaint: "I believe things are well" 52-year-old male presenting with a chief complaint of inappropriate sexual behavior. This patient is known to me. Today the patient is calm and cooperative during the assessment. He stated that the voices have returned "a little." The patient has loose associations during the interview. He denies SI/ HI's and AVH's. Per the staff, no behavioral disturbances last night. No indications of side effects of his medications. Mental Status Exam - Vital signs Last Vital Signs Temp 98.6 F 01/06/18 19:50 Pulse 90 01/06/18 19:50 Resp 18 01/06/18 19:50 BP 126/81 01/06/18 19:50 Pulse Ox 99 01/06/18 19:50 - Exam Narrative exam: MSE: Appearance: calm, cooperative Behavior: regular eye contact Speech: regular rate and tone Mood: "okay" Affect: congruent to mood Thought Process: loose associations Thought Content: denies SI/HI's and VH's Motor Activity: lying in bed Cognition: A/O x 3 Insight: variable Judgment: variable Assessment and Plan Impression: Schizophrenia, Paranoid Type. Today the patient is calm and cooperative during the assessment. UDS is negative. DDx: Schizoaffective DO, R/O Bipolar DO with psychosis Recommendation/Plan: Continue 1013 with placement to inpatient psy services. The patient takes Clozaril, but that medication isn't on formulary. Continue Depakote 500 mg PO BID for mood and increase Zyprexa to 10 mg PO for psychosis. Discussed possible metabolic side effects of Zyprexa with the patient.
[2018-01-07] MEDS: BENADRYL IM PRN (15:10)
[2018-01-08] MEDS: GLUCOPHAGE PO SCH ×2 (09:00→17:50)
[2018-01-08] MEDS: AMARYL PO SCH (09:00)
--- NOTE | 2018-01-08 13:20 | Progress Note ---
Subjective - Reason for Consult Consult date: 01/08/18 Reason for consult: Psychiatric Follow-up Evaluation - Chief Complaint Chief complaint: "I'm alright" Patient is a 52-year-old male who presents with a chief complaint of inappropriate sexual behavior. Today the patient is calm and cooperative during the assessment. Per staff patient continues to be sexually inappropriate. Patient seen humping/grinding on the bed. Patient unable to have a roommate due to inappropriate behavior. Patient believes that his brother and sister are out to harm him. He continue to have loose associations during the interview. He denies SI/HI's and AVH's. Per the staff, no behavioral disturbances last night. No indications of side effects of his medications. Mental Status Exam - Vital signs Last Vital Signs Temp 97.8 F 01/08/18 09:10 Pulse 85 01/08/18 09:10 Resp 18 01/08/18 09:10 BP 125/79 01/08/18 09:10 Pulse Ox 96 01/08/18 09:10 - Exam Narrative exam: Mental Status Exam General Appearance: Causally Dressed-hospital gown Eye Contact: Intermittent Orientation: Alert and oriented x 4 ( person, place, time, and situation) Attitude/Behavior: Cooperative Sensorium: Distracted Psychomotor & Musculoskeletal Activity: Laying in bed Mood: "I'm alright." Affect: Constricted Speech/Language: Normal rate and tone Thought Processes: Tangential, loose associations Thought Content: Impoverished, paranoid- believes his sisters/brothers want to harm him Perception: Patient denies A/V/T hallucinations Concentration/Attention: Impaired Suicidal Ideations/Plan: Patient denies Homicidal Ideations/Plan: Patient denies Insight: Poor Judgment: Poor Assessment and Plan Impression: Schizophrenia, Paranoid Type. Today the patient is calm and cooperative during the assessment. UDS is negative. DDx: Schizoaffective DO, R/O Bipolar DO with psychosis Recommendation/Plan: 1. Will extend patient's 1013 with placement to inpatient psychiatric services. 2. The patient takes Clozaril, but that medication isn't on formulary. Increase Depakote 500 mg PO QAM, 1000mg po QHS for mood and increase Zyprexa to 10 mg PO for psychosis. Discussed possible metabolic side effects of Zyprexa with the patient. 3. Will monitor psychosis, mood, sexual inappropriateness, sleep, appetite, compliance, and side effects.
[2018-01-08 17:46] LABS: Hematocrit 39.7 % (35.5-45.6); Hemoglobin 13.5 gm/dl (11.8-15.2); Mean Corpuscular HGB Conc 34 % (32-34); Mean Corpuscular Hemoglobin 29 pg (28-32); Mean Corpuscular Volume 87 fl (84-94); Platelet Count 170 K/mm3 (140-440); Red Blood Count 4.58 M/mm3 (3.65-5.03)
[2018-01-08 18:06] LABS: Alanine Aminotransferase 21 units/L (7-56); Albumin 3.5 g/dL (3.9-5); BUN/Creatinine Ratio 12; Blood Urea Nitrogen 11 mg/dL (9-20); Calcium 8.9 mg/dL (8.4-10.2); Hemolysis Index 4
[2018-01-09] MEDS: GLUCOPHAGE PO SCH (08:15)
[2018-01-09] MEDS: AMARYL PO SCH (08:50)
--- NOTE | 2018-01-09 11:12 | Progress Note ---
Subjective - Reason for Consult Consult date: 01/09/18 Reason for consult: Psychiatry Follow - Chief Complaint Chief complaint: "How are you" Patient is a 52-year-old male who presents with a chief complaint of inappropriate sexual behavior. Today the patient is calm and cooperative during the assessment. He continue to be delusional and paranoid about relatives trying to harm him. He had to be redirected several times to keep him on topic. Per the staff, no inappropriate behavior overnight. No indications of side effects of his medications. Mental Status Exam - Vital signs Last Vital Signs Temp 97.8 F 01/09/18 10:30 Pulse 87 01/09/18 10:30 Resp 16 01/09/18 10:30 BP 111/70 01/09/18 10:30 Pulse Ox 100 01/09/18 10:30 - Exam Narrative exam: MSE: Appearance: calm, cooperative Behavior: regular eye contact Speech: regular rate and tone Mood: "okay" Affect: congruent to mood Thought Process: loose associations Thought Content: denies SI/HI's and VH's, delusional, paranoid Motor Activity: lying in bed Cognition: A/O x 3 Insight: poor Judgment: variable Assessment and Plan Impression: Schizophrenia, Paranoid Type. Today the patient is calm and cooperative, but delusional during the assessment. UDS is negative. DDx: Schizoaffective DO, R/O Bipolar DO with psychosis Recommendation/Plan: Continue 1013 with placement to inpatient psy services. The patient takes Clozaril, but that medication isn't on formulary. Continue Depakote 500 mg PO QAM and Zyprexa 10 mg PO for psychosis. Start Depakote 1000 mg PO HS for mood. Discussed possible metabolic side effects of Zyprexa with the patient.
[2018-01-09 11:31] LABS: Lipase 13 units/L (13-60)
[2018-01-09] MEDS ORDERED: D50W (25GM) Syringe IV PRN (12:27)
[2018-01-10] MEDS: GLUCOPHAGE PO SCH ×3 (09:00→19:06)
[2018-01-10] MEDS: HumuLIN R SUB-Q SCH ×4 (09:00→19:05)
[2018-01-10] MEDS: AMARYL PO SCH ×2 (09:10→10:37)
--- NOTE | 2018-01-10 13:15 | Progress Note ---
Subjective - Reason for Consult Consult date: 01/10/18 Reason for consult: Psychiatry Follow-up - Chief Complaint Chief complaint: "What" Patient is a 52-year-old male who presents with a chief complaint of inappropriate sexual behavior. Today the patient is calm during the assessment. He had to be redirected several times to keep him on topic. He continue to have loose associations when asked direct questions. He would not confirm or deny that his relatives are currently trying to harm him per a previous assessment. He denies SI/HI's and VH's. He did state that the voices are "decreasing." Per the staff, no inappropriate behavior overnight. No indications of side effects of his medications. Mental Status Exam - Vital signs Last Vital Signs Temp 97.8 F 01/09/18 10:30 Pulse 82 01/09/18 20:39 Resp 16 01/09/18 20:39 BP 125/81 01/09/18 20:39 Pulse Ox 97 01/09/18 20:39 - Exam Narrative exam: MSE: Appearance: calm Behavior: regular eye contact Speech: regular rate and tone Mood: "okay" Affect: congruent to mood Thought Process: loose associations Thought Content: denies SI/HI's and VH's, delusional Motor Activity: lying in bed Cognition: A/O x 3 Insight: poor Judgment: variable Assessment and Plan Impression: Schizophrenia, Paranoid Type. Today the patient is calm and cooperative during the assessment. UDS is negative. DDx: Schizoaffective DO, R/O Bipolar DO with psychosis Recommendation/Plan: Continue 1013 with placement to inpatient psy services. The patient takes Clozaril, but that medication isn't on formulary. Continue Depakote 500 mg PO QAM for mood, Depakote 1000 mg PO HS for mood, and increase Zyprexa to 15 mg PO HS for psychosis. Discussed possible metabolic side effects of Zyprexa with the patient.
[2018-01-11] MEDS: HumuLIN R SUB-Q SCH ×3 (08:50→17:13)
[2018-01-11] MEDS: GLUCOPHAGE PO SCH ×2 (09:00→19:00)
[2018-01-11] MEDS: AMARYL PO SCH (09:00)
--- NOTE | 2018-01-11 19:31 | Progress Note ---
Subjective - Reason for Consult Consult date: 01/11/18 Reason for consult: follow up - Chief Complaint Chief complaint: "hey, come here" Patient is a 52-year-old male who presents with a chief complaint of inappropriate sexual behavior. Today the patient is calm during the assessment. He asked for different food items. He continue to have loose associations when asked direct questions. He admits to hearing voices. He denies SI/HI's and VH' s. He attempts to keep his gown closed when he is in the [place]. Mental Status Exam - Vital signs Last Vital Signs Temp 97.9 F 01/11/18 10:28 Pulse 115 H 01/11/18 10:28 Resp 16 01/11/18 10:28 BP 122/69 01/11/18 10:28 Pulse Ox 100 01/11/18 10:28 - Exam Narrative exam: MSE: Appearance: calm Behavior: regular eye contact Speech: regular rate and tone Mood: "okay" Affect: congruent to mood Thought Process: loose associations Thought Content: denies SI/HI's and VH's, delusional Motor Activity: lying in bed Cognition: A/O x 3 Insight: poor Judgment: variable Assessment and Plan Impression: Schizophrenia, Paranoid Type. Today the patient is calm, cooperative , but disorganized during the assessment. UDS is negative. DDx: Schizoaffective DO, R/O Bipolar DO with psychosis Recommendation/Plan: Continue 1013 with placement to inpatient psy services. The patient takes Clozaril, but that medication isn't on formulary. Continue Depakote 500 mg PO QAM for mood, Depakote 1000 mg PO HS for mood, and increase Zyprexa to 15 mg PO HS for psychosis. last VPA 01/07/2018 was 37. It has been increased.
[2018-01-12] MEDS: BENADRYL IM PRN (00:23)
[2018-01-12] MEDS: GLUCOPHAGE PO SCH ×2 (08:00→17:01)
[2018-01-12] MEDS: HumuLIN R SUB-Q SCH ×3 (08:05→17:01)
[2018-01-12] MEDS: AMARYL PO SCH (10:15)
--- NOTE | 2018-01-12 17:26 | Progress Note ---
Subjective - Reason for Consult Consult date: 01/12/18 Reason for consult: Psychiatric Follow-up Evaluation - Chief Complaint Chief complaint: "I'm okay. " Patient is a 52-year-old male who presents with a chief complaint of inappropriate sexual behavior. Today the patient is calm during the assessment. He states, " I didn't sleep much last night. I'm eating." Patient presents with disorganized thought process. Patient refuses to answer certain questions. Responses to questions are inappropriately. He continues to have loose associations when asked direct questions. " Jonh-a- Fella." He admits to hearing voices. He denies SI/HI's and VH's. Mental Status Exam - Vital signs Last Vital Signs Temp 98 F 01/12/18 09:26 Pulse 108 H 01/12/18 09:26 Resp 18 01/12/18 09:26 BP 123/87 01/12/18 09:26 Pulse Ox 99 01/12/18 09:26 - Exam Narrative exam: Mental Status Exam General Appearance: Casually Dressed-hospital gown Eye Contact: Intermittent Orientation: Alert and oriented x 1 ( person)- Unable to Assess Attitude/Behavior: Evasive, guarded Sensorium: Distracted Psychomotor & Musculoskeletal Activity: Sitting up in bed Mood: " I'm okay. " Anxious. Affect: Incongruent Speech/Language: Mumbling Thought Processes: Disorganized Thought Content: Impoverished Perception: Patient denies. Patient seen RIS and talking inappropriately. Concentration/Attention: Impaired Suicidal Ideations/Plan: Patient denies. Homicidal Ideations/Plan: Patient denies. Judgment: Poor Insight: Poor Assessment and Plan Impression: Schizophrenia, Paranoid Type. Today the patient is calm, cooperative , but disorganized during the assessment. UDS is negative. DDx: Schizoaffective DO, R/O Bipolar DO with psychosis Recommendation/Plan: 1. Continue 1013 with placement to inpatient psychiatric services. 2. Continue Depakote 500 mg PO QAM for mood, Depakote 1000 mg PO HS for mood, Zyprexa to 15 mg PO HS for psychosis. last VPA 01/07/2018 was 37. It has been increased. 3. Will monitor psychosis, mood, thought process, sleep, appetite, compliance, side effects, and depakote level. 4. Provider ordered STAT Depakote level.
[2018-01-13] MEDS: HumuLIN R SUB-Q SCH ×3 (08:02→19:28)
[2018-01-13] MEDS: GLUCOPHAGE PO SCH ×2 (08:03→19:09)
[2018-01-13] MEDS: AMARYL PO SCH (09:34)
--- NOTE | 2018-01-13 10:38 | Progress Note ---
Subjective - Reason for Consult Consult date: 01/13/18 Reason for consult: Psychiatry Follow-up - Chief Complaint Chief complaint: "The voices" Patient is a 52-year-old male who presents with a chief complaint of inappropriate sexual behavior. Today the patient is calm and cooperative, but disorganized during the assessment. He continue to have loose associations when asked questions. He stated that the voices are decreasing. He denies SI/HI's and VH's. He denies any side effects of his medications. Mental Status Exam - Vital signs Last Vital Signs Temp 98.6 F 01/12/18 20:15 Pulse 70 01/12/18 20:15 Resp 13 01/12/18 20:15 BP 140/81 01/12/18 20:15 Pulse Ox 98 01/12/18 20:15 - Exam Narrative exam: MSE: Appearance: calm Behavior: regular eye contact Speech: regular rate and tone Mood: "okay" Affect: congruent to mood Thought Process: loose associations Thought Content: denies SI/HI's and VH's, delusional Motor Activity: lying in bed Cognition: A/O x 3 Insight: poor Judgment: poor Assessment and Plan Impression: Schizophrenia, Paranoid Type. Today the patient is calm and cooperative, but disorganized during the assessment. UDS is negative. DDx: Schizoaffective DO, R/O Bipolar DO with psychosis Recommendation/Plan: Continue 1013 with placement to inpatient psy services. The patient takes Clozaril, but that medication isn't on formulary. Continue Depakote 500 mg PO QAM for mood, Depakote 1000 mg PO HS for mood, and increase Zyprexa to 15 mg PO HS for psychosis. Discussed possible metabolic side effects of Zyprexa with the patient. Spoke with the patient's brother Chavez Juarez at [phone]. He stated that he will try to bring the patient's Clozaril to the hospital sometime this week.
[2018-01-13] MEDS ORDERED: ATIVAN ONE (13:02)
[2018-01-13] MEDS ORDERED: GEODON IM ONE ×3 (13:04→13:11)
[2018-01-13] MEDS ORDERED: ATIVAN IM STA (13:05)
[2018-01-13] MEDS ORDERED: ATIVAN IM ONE (13:10)
[2018-01-14] MEDS: HumuLIN R SUB-Q SCH ×3 (08:54→18:53)
[2018-01-14] MEDS: GLUCOPHAGE PO SCH ×2 (08:54→19:13)
--- NOTE | 2018-01-14 10:49 | Progress Note ---
Subjective - Reason for Consult Consult date: 01/14/18 Reason for consult: Psychiatry Follow-up - Chief Complaint Chief complaint: "What do you" Patient is a 52-year-old male who presents with a chief complaint of inappropriate sexual behavior. Today the patient is calm and cooperative, but still disorganized during the assessment. He was rambling during the interview and had to be redirected several times to keep him on topic. He stated that he was upset, but could not elaborate why. He denies SI/HI's and VH's. He denies any side effects of his medications. Mental Status Exam - Vital signs Last Vital Signs Temp 97.9 F 01/13/18 09:19 Pulse 80 01/13/18 22:19 Resp 18 01/13/18 09:19 BP 126/90 01/13/18 22:19 Pulse Ox 100 01/13/18 22:19 - Exam Narrative exam: MSE: Appearance: calm Behavior: regular eye contact Speech: rambling Mood: "okay" Affect: congruent to mood Thought Process: loose associations, disorganized Thought Content: denies SI/HI's and AVH's, delusional Motor Activity: lying in bed Cognition: A/O x 3 Insight: poor Judgment: poor Assessment and Plan Impression: Schizophrenia, Paranoid Type. Today the patient is calm and cooperative, but disorganized during the assessment. UDS is negative. DDx: Schizoaffective DO, R/O Bipolar DO with psychosis Recommendation/Plan: Continue 1013 with placement to inpatient psy services. The patient takes Clozaril, but that medication isn't on formulary. Continue Depakote 500 mg PO QAM for mood, Depakote 1000 mg PO HS for mood, and increase Zyprexa to 20 mg PO HS for psychosis. Discussed possible metabolic side effects of Zyprexa with the patient. Spoke with the patient's brother Chavez Juarez at [phone]. He stated that he will try to bring the patient's Clozaril to the hospital sometime this week.
[2018-01-14] MEDS: AMARYL PO SCH (12:51)
[2018-01-15] MEDS: HumuLIN R SUB-Q SCH ×3 (09:19→17:00)
[2018-01-15] MEDS: AMARYL PO SCH (09:21)
[2018-01-15] MEDS: GLUCOPHAGE PO SCH ×2 (09:21→18:13)
--- NOTE | 2018-01-15 12:54 | Progress Note ---
Subjective - Reason for Consult Consult date: 01/15/18 Reason for consult: Psychiatric Follow-up Evaluation - Chief Complaint Chief complaint: "I'm okay" Patient is a 52-year-old male who presents with a chief complaint of inappropriate sexual behavior. Today the patient is calm and cooperative, but still disorganized during the assessment. He continues to ramble throughout the interview and has to be redirected several times to keep him on topic. He reports decrease sleep. Also, throughout the assessment patient is responding to internal stimuli. He states, " Do you hear that rattling noise?" He denies SI/HI's and VH's. He denies any side effects of his medications. Mental Status Exam - Vital signs Last Vital Signs Temp 98.4 F 01/14/18 19:17 Pulse 82 01/14/18 19:17 Resp 18 01/14/18 19:17 BP 137/94 01/14/18 19:17 Pulse Ox 95 01/14/18 19:17 - Exam Narrative exam: Mental Status Exam General Appearance: Casually Dressed-hospital gown Eye Contact: Intermittent Orientation: Alert and oriented x 4 ( person, place, date, and situation) Attitude/Behavior: Cooperative Sensorium: Distracted Psychomotor & Musculoskeletal Activity: Laying in bed Mood: " I'm okay. " Anxious. Affect: Incongruent Speech/Language: Mumbling /Rambling Thought Processes: Disorganized, loose associations Thought Content: Impoverished Perception: Patient denies. Patient seen RIS and talking inappropriately. Concentration/Attention: Impaired Suicidal Ideations/Plan: Patient denies. Homicidal Ideations/Plan: Patient denies. Judgment: Poor Insight: Poor Assessment and Plan Impression: Schizophrenia, Paranoid Type. Today the patient is calm and cooperative, but disorganized during the assessment. UDS is negative. On 01/12/18 - Depakote level 60.5. DDx: Schizoaffective DO, R/O Bipolar DO with psychosis Recommendation/Plan: 1. Continue 1013 with placement to inpatient psychiatric services. 2. The patient takes Clozaril, but that medication isn't on formulary. Continue Depakote 500 mg PO QAM for mood, Depakote 1000 mg PO HS for mood, and increase Zyprexa to 20 mg PO HS for psychosis. Discussed possible metabolic side effects of Zyprexa with the patient. 3. Will monitor mood, psychosis, sexual inappropriateness, sleep, appetite, compliance, and side effects.
--- NOTE | 2018-01-16 07:37 | Progress Note ---
Subjective - Reason for Consult Consult date: 01/16/18 Reason for consult: Psychiatry Follow-up - Chief Complaint Chief complaint: "I'm okay" Patient is a 52-year-old male who presents with a chief complaint of inappropriate sexual behavior. Today the patient is calm and cooperative, but still disorganized during the assessment. He rambles about random topics when questioned. He would not confirm or deny AH's. Per the notes, no inappropriate behavior overnight. He denies SI/HI's and VH's. No indications of side effects of his medications. Mental Status Exam - Vital signs Last Vital Signs Temp 98.2 F 01/15/18 19:35 Pulse 96 H 01/15/18 19:35 Resp 18 01/15/18 19:35 BP 117/81 01/15/18 19:35 Pulse Ox 99 01/15/18 19:35 - Exam Narrative exam: MSE: Appearance: calm Behavior: regular eye contact Speech: rambling Mood: "okay" Affect: congruent to mood Thought Process: loose associations, disorganized, flight of ideas Thought Content: denies SI/HI's and VH's, delusional Motor Activity: lying in bed Cognition: A/O x 3 Insight: poor Judgment: poor Assessment and Plan Impression: Schizophrenia, Paranoid Type. Today the patient is calm and cooperative, but disorganized during the assessment. UDS is negative. DDx: Schizoaffective DO, R/O Bipolar DO with psychosis Recommendation/Plan: The patient's 1013 was extended. Placement for inpatient psy services is still ongoing. The patient takes Clozaril, but that medication isn't on formulary. Continue Depakote 500 mg PO QAM for mood, Depakote 1000 mg PO HS for mood, and Zyprexa to 20 mg PO HS for psychosis. Discussed possible metabolic side effects of Zyprexa with the patient. Spoke with the patient's brother Chavez Juarez at [phone]. He stated that he will try to bring the patient's Clozaril to the hospital sometime this week.
[2018-01-16] MEDS: GLUCOPHAGE PO SCH ×2 (09:10→18:13)
[2018-01-16] MEDS: HumuLIN R SUB-Q SCH ×3 (09:10→18:09)
[2018-01-16] MEDS: AMARYL PO SCH (09:30)
[2018-01-17] MEDS: BENADRYL IM PRN (05:10)
[2018-01-17] MEDS: HumuLIN R SUB-Q SCH (08:19)
[2018-01-17] MEDS: GLUCOPHAGE PO SCH ×2 (10:00→17:26)
[2018-01-17] MEDS: AMARYL PO SCH (10:00)
--- NOTE | 2018-01-17 13:47 | Progress Note ---
Subjective - Reason for Consult Consult date: 01/17/18 Reason for consult: Psychiatry Follow-up - Chief Complaint Chief complaint: "I'm on the bed" Patient is a 52-year-old male who presents with a chief complaint of inappropriate sexual behavior. Today the patient is calm and cooperative, but still disorganized during the assessment. He continue to ramble on when asked questions. His answers to some questions isn't logical. He was asked about hearing voices, he paused and would not answer, possibly responding to some type of stimuli. Per the notes, no inappropriate behavior overnight. He denies SI/HI's and VH's. No indications of side effects of his medications. Mental Status Exam - Vital signs Last Vital Signs Temp 97.8 F 01/16/18 19:18 Pulse 91 H 01/16/18 19:18 Resp 16 01/16/18 19:18 BP 134/90 01/16/18 19:18 Pulse Ox 95 01/16/18 19:18 - Exam Narrative exam: MSE: Appearance: calm Behavior: regular eye contact Speech: rambling Mood: "okay" Affect: congruent to mood Thought Process: loose associations, disorganized Thought Content: denies SI/HI's and VH's, delusional Motor Activity: lying in bed Cognition: A/O x 3 Insight: poor Judgment: poor Assessment and Plan Impression: Schizophrenia, Paranoid Type. Today the patient is calm and cooperative, but disorganized during the assessment. UDS is negative. DDx: Schizoaffective DO, R/O Bipolar DO with psychosis Recommendation/Plan: Continue 1013 with placement to inpatient psy services. The patient's home medications was brought to the ER. The Clozaril wasn't part of the patient's home medication regimen that was brought to the ER. Continue Depakote 500 mg PO QAM for mood, Depakote 1000 mg PO HS for mood, and Zyprexa to 20 mg PO HS for psychosis. Start Haldol 5 mg PO HS for psychosis. Discussed possible metabolic side effects of Zyprexa with the patient.
[2018-01-17] MEDS ORDERED: HALDOL PO SCH (22:00)
[2018-01-18] MEDS: GLUCOPHAGE PO SCH (10:00)
[2018-01-18] MEDS: AMARYL PO SCH (10:00)
[2018-01-18 14:20] VITALS: BP 136/83
--- NOTE | 2018-01-18 18:16 | Progress Note ---
Subjective - Reason for Consult Reason for consult: psych consult - Chief Complaint Chief complaint: "I'm on the bed" Patient is a 52-year-old male who presents with a chief complaint of inappropriate sexual behavior. Patient with no changes from when last seen. Still responding to internal stimuli. He remains disorganized but not physically or verbally aggressive. No gestures of SI/HI. Mental Status Exam - Vital signs Last Vital Signs Temp 97.7 F 01/18/18 11:30 Pulse 87 01/18/18 11:30 Resp 18 01/18/18 11:30 BP 136/83 01/18/18 11:30 Pulse Ox 100 01/18/18 11:30 - Exam Orientation: person Affect: normal Mood: appropriate Thought content: delusions Thought Process: Loose Associations, Tangential, Disorganized Perceptions: auditory Speech: normal rate and pattern Motor activity: normal Level of consciousness: alert Interaction: cooperative Assessment and Plan Assessment and Plan Impression: Schizophrenia, Paranoid Type. No change in his presentation. DDx: Schizoaffective DO, R/O Bipolar DO with psychosis Recommendation/Plan: Continue 1013 with placement to inpatient at [facility].
== END 2018-01-19 04:48 ==
LOC: ED 17:59 → EEVIPCON 17:59 → ED 01-18 16:30
DX: F20.0 Paranoid schizophrenia (principal); N39.0 Urinary tract infection, site not specified; E11.9 Type 2 diabetes mellitus without complications; I10 Essential (primary) hypertension; F17.200 Nicotine dependence, unspecified, uncomplicated
CPT/HCPCS: 36415; 80048; 80053; 80164; 80307; 81001; 82150; 82962; 83690; 84075; 84450; 84460; 85025; 85027; 96372; 99285; G0480; J1200; J2060; J3486; 80320; J1630; J1650; J1815

== ENCOUNTER 2018-09-29 08:04 | Emergency (ER) | payer MEDICARE ==
--- NOTE | 2018-09-29 11:00 | XRay Report ---
BILATERAL KNEES, 2 VIEWS History: Bilateral knee pain. Findings: The patient was uncooperative and would not allow the lateral views to be taken. AP view of both knees are presented which demonstrate no evidence for acute fracture, bone lesion or joint pathology. Mild heterotopic calcifications are noted in the soft tissues proximal to both knees in the mid thigh regions which is partially imaged. Impression: Unremarkable bilateral knees.
--- NOTE | 2018-09-29 11:23 | Emergency Department Report ---
ED General Adult HPI - General Chief complaint: Fall Stated complaint: KNEE PAIN Time Seen by Provider: 09/29/18 09:29 Source: patient Mode of arrival: Wheelchair Limitations: Altered Mental Status - History of Present Illness Initial comments: Patient presents to the emergency department with a chief complaint of bilateral knee pain that has been present for the last year. Upon entering the room the patient is asleep and had to be awakened to get the history. Patient denies any recent fall and also denies any chest pain, shortness breath, or abdominal pain. -: Gradual Location: lower extremity Radiation: non-radiation Severity scale (0 -10): 2 Consistency: constant Improves with: none Worsens with: none Associated Symptoms: denies other symptoms Treatments Prior to Arrival: none - Related Data Home Medications Medication Instructions Recorded Confirmed Last Taken Benztropine [Cogentin] 1 mg PO BID 06/10/18 09/29/18 Unknown Divalproex [Sandeep HUNT] 1,000 mg PO QHS 06/10/18 09/29/18 Unknown Divalproex [Sandeep HUNT] 500 mg PO QHS 06/10/18 09/29/18 Unknown Glimepiride [Amaryl] 2 mg PO QAM 06/10/18 09/29/18 Unknown Loperamide [Imodium] 2 mg PO QDAY PRN 06/10/18 09/29/18 Unknown Loratadine [Claritin] 10 mg PO DAILY 06/10/18 09/29/18 Unknown Metformin HCl [Fortamet ER] 1,000 mg PO BID 06/10/18 09/29/18 Unknown Metoprolol Tartrate 25 mg PO BID 06/10/18 09/29/18 Unknown cloNIDine [Catapres] 0.1 mg PO BID 06/10/18 09/29/18 Unknown cloZAPine 100 mg PO BID 06/10/18 09/29/18 Unknown glipiZIDE [Glipizide] 5 mg PO QAM 06/10/18 09/29/18 Unknown hydrOXYzine HCl [Hydroxyzine HCl] 25 mg PO TID 06/10/18 09/29/18 Unknown methOCARBAMOL [Robaxin TAB] 750 mg PO Q8H PRN 06/10/18 09/29/18 Unknown traZODone [Desyrel] 50 mg PO QHS 06/10/18 09/29/18 Unknown Aspirin EC 81 mg PO QDAY 09/29/18 09/29/18 Unknown Allergies Allergy/AdvReac Type Severity Reaction Status Date / Time No Known Allergies Allergy Verified 09/29/18 08:19 ED Review of Systems ROS: Stated complaint: KNEE PAIN Other details as noted in HPI Constitutional: denies: chills, fever Eyes: denies: eye pain, eye discharge, vision change ENT: denies: ear pain, throat pain Respiratory: denies: cough, shortness of breath, wheezing Cardiovascular: denies: chest pain, palpitations Endocrine: no symptoms reported Gastrointestinal: denies: abdominal pain, nausea, diarrhea Genitourinary: denies: urgency, dysuria Musculoskeletal: other (knee pain). denies: back pain, joint swelling, arthralgia Skin: denies: rash, lesions Neurological: denies: headache, weakness, paresthesias Psychiatric: denies: anxiety, depression Hematological/Lymphatic: denies: easy bleeding, easy bruising ED Past Medical Hx - Past Medical History Previous Medical History?: Yes Hx Hypertension: Yes Hx CVA: Yes Hx Diabetes: Yes Hx Seizures: Yes Additional medical history: Anemia - Surgical History Past Surgical History?: Yes Additional Surgical History: Herniorrhaphy - Social History Smoking Status: Unknown if ever smoked - Medications Home Medications: Home Medications Medication Instructions Recorded Confirmed Last Taken Type Benztropine [Cogentin] 1 mg PO BID 06/10/18 09/29/[address] Soo HUNT] 1,000 mg PO QHS 06/10/18 09/29/[address] Soo HUNT] 500 mg PO QHS 06/10/18 09/29/18 Unknown History Glimepiride [Amaryl] 2 mg PO QAM 06/10/18 09/29/18 Unknown History Loperamide [Imodium] 2 mg PO QDAY PRN 06/10/18 09/29/18 Unknown History Loratadine [Claritin] 10 mg PO DAILY 06/10/18 09/29/18 Unknown History Metformin HCl [Fortamet ER] 1,000 mg PO BID 06/10/18 09/29/18 Unknown History Metoprolol Tartrate 25 mg PO BID 06/10/18 09/29/18 Unknown History cloNIDine [Catapres] 0.1 mg PO BID 06/10/18 09/29/18 Unknown History cloZAPine 100 mg PO BID 06/10/18 09/29/18 Unknown History glipiZIDE [Glipizide] 5 mg PO QAM 06/10/18 09/29/18 Unknown History hydrOXYzine HCl [Hydroxyzine HCl] 25 mg PO TID 06/10/18 09/29/18 Unknown History methOCARBAMOL [Robaxin TAB] 750 mg PO Q8H PRN 06/10/18 09/29/18 Unknown History traZODone [Desyrel] 50 mg PO QHS 06/10/18 09/29/18 Unknown History Aspirin EC 81 mg PO QDAY 09/29/18 09/29/18 Unknown History ED Physical Exam - General Limitations: Altered Mental Status General appearance: alert, in no apparent distress - Head Head exam: Present: atraumatic, normocephalic - Eye Eye exam: Present: normal appearance, PERRL, EOMI - ENT ENT exam: Present: mucous membranes moist - Neck Neck exam: Present: normal inspection - Respiratory Respiratory exam: Present: normal lung sounds bilaterally. Absent: respiratory distress, wheezes, rales - Cardiovascular Cardiovascular Exam: Present: regular rate, normal rhythm. Absent: systolic murmur, diastolic murmur, rubs, gallop - GI/Abdominal GI/Abdominal exam: Present: soft, normal bowel sounds. Absent: distended, tenderness - Rectal Rectal exam: Present: deferred - Extremities Exam Extremities exam: Present: normal inspection - Back Exam Back exam: Present: normal inspection - Neurological Exam Neurological exam: Present: alert, oriented X3, CN II-XII intact. Absent: motor sensory deficit - Psychiatric Psychiatric exam: Present: normal affect, normal mood - Skin Skin exam: Present: warm, dry, intact, normal color. Absent: rash ED Course Vital Signs 09/29/18 09/29/18 08:19 09:31 Temperature 98.1 F Pulse Rate 78 Respiratory 16 Rate Blood Pressure 96/68 O2 Sat by Pulse 99 100 Oximetry ED Medical Decision Making - Lab Data Lab Results 09/29/18 Range/Units 08:21 POC Glucose 191 H (70-105) - Radiology Data Radiology results: report reviewed - Medical Decision Making Results discussed with patient Critical care attestation.: If time is entered above; I have spent that time in minutes in the direct care of this critically ill patient, excluding procedure time. ED Disposition Clinical Impression: Knee pain, bilateral Disposition: DC-01 TO HOME OR SELFCARE Is pt being admited?: No Does the pt Need Aspirin: No Condition: Stable Instructions: Knee Pain (ED) Additional Instructions: return if worse Referrals: KEILA WRIGHT [Other] - 3-5 Days Time of Disposition: 11:23
[2018-09-29 11:35] VITALS: BP 106/58
== END 2018-09-29 11:36 | disposition home or self-care (01) ==
LOC: ED 08:04
DX: M25.561 Pain in right knee (principal); M25.562 Pain in left knee; I10 Essential (primary) hypertension; E11.9 Type 2 diabetes mellitus without complications; Z86.2 Personal history of diseases of the blood and blood-forming organs and certain disorders involving the immune mechanism; Z79.82 Long term (current) use of aspirin; Z98.890 Other specified postprocedural states
CPT/HCPCS: 82962; 99284

== ENCOUNTER 2018-11-04 10:45 | Emergency (ER) | payer MEDICARE ==
[2018-11-04 11:29] LABS: Bacteria,Urine 1+ /HPF (Negative); Bilirubin,Urine NEG (Negative); Blood,Urine NEG (Negative); Color,Urine Straw (Yellow); Mucus,Urine FEW /HPF; Protein,Urine <15 mg/dL mg/dL (Negative); RBC,Urine < 1.0 /HPF (0.0-6.0); Urobilinogen,Urine < 2.0 mg/dL (<2.0)
--- NOTE | 2018-11-04 11:33 | Emergency Department Report ---
HPI - General Chief Complaint: Psych Time Seen by Provider: 11/04/18 11:20 - HPI HPI: 53-year-old -[place] male presents to the emergency department from [facility] for a mental health evaluation. The patient has a history of bipolar disorder and schizophrenia and currently is a poor historian. He was brought in by someone who works at [facility] providing different psychiatric programs and referrals. The patient was incarcerated a few months ago for 45 days and had some type of psychiatric care and compliance with his medication at that time. However, once he was released, although this went away and he has progressively gotten worse with his condition. The reason he was brought into today to be seen was because he began getting aggressive and threatening to other [facility] staff and residents. This other [facility] worker says that the patient has been going into rooms and exposing himself. ED Past Medical Hx - Past Medical History Previous Medical History?: Yes Hx Hypertension: Yes Hx CVA: Yes Hx Diabetes: Yes Hx Seizures: Yes Hx Psychiatric Treatment: Yes (schizophrenia) Additional medical history: Anemia - Surgical History Past Surgical History?: Yes Additional Surgical History: Hernia repair - Social History Smoking Status: Never Smoker Substance Use Type: None - Medications Home Medications: Home Medications Medication Instructions Recorded Confirmed Last Taken Type Benztropine [Cogentin] 1 mg PO BID 06/10/18 09/29/18 Unknown History Divalproex [Sandeep HUNT] 1,000 mg PO QHS 06/10/18 09/29/[address] Soo HUNT] 500 mg PO QHS 06/10/18 09/29/18 Unknown History Glimepiride [Amaryl] 2 mg PO QAM 06/10/18 09/29/18 Unknown History Loperamide [Imodium] 2 mg PO QDAY PRN 06/10/18 09/29/18 Unknown History Loratadine [Claritin] 10 mg PO DAILY 06/10/18 09/29/18 Unknown History Metformin HCl [Fortamet ER] 1,000 mg PO BID 06/10/18 09/29/18 Unknown History Metoprolol Tartrate 25 mg PO BID 06/10/18 09/29/18 Unknown History cloNIDine [Catapres] 0.1 mg PO BID 06/10/18 09/29/18 Unknown History cloZAPine 100 mg PO BID 06/10/18 09/29/18 Unknown History glipiZIDE [Glipizide] 5 mg PO QAM 06/10/18 09/29/18 Unknown History hydrOXYzine HCl [Hydroxyzine HCl] 25 mg PO TID 06/10/18 09/29/18 Unknown History methOCARBAMOL [Robaxin TAB] 750 mg PO Q8H PRN 06/10/18 09/29/18 Unknown History traZODone [Desyrel] 50 mg PO QHS 06/10/18 09/29/18 Unknown History Aspirin EC 81 mg PO QDAY 09/29/18 09/29/18 Unknown History ED Review of Systems ROS: Stated complaint: CLEARANCE Other details as noted in HPI Comment: Unobtainable due to pts medical conditions Physical Exam - Physical Exam Vital Signs: Vital Signs 11/04/18 10:53 Temperature 98.9 F Pulse Rate 100 H Respiratory 16 Rate Blood Pressure 130/88 [Left] O2 Sat by Pulse 100 Oximetry Physical Exam: GENERAL: The patient is well-developed well-nourished. HENT: Normocephalic. Atraumatic. Patient has moist mucous membranes. EYES: Extraocular motions are intact. NECK: Supple. Trachea is midline. CHEST/LUNGS: Clear to auscultation. There is no respiratory distress noted. HEART/CARDIOVASCULAR: Regular. There is no tachycardia. There is no murmur. ABDOMEN: Abdomen is soft, nontender. Patient has normal bowel sounds. There is no abdominal distention. SKIN: Skin is warm and dry. NEURO: The patient is awake. Patient follows some commands but may have to be redirected. MUSCULOSKELETAL: There is no tenderness or deformity. There is no evidence of acute injury. PSYCH: Patient is disorganized with some tangential thoughts expressed. ED Course Vital Signs 11/04/18 10:53 Temperature 98.9 F Pulse Rate 100 H Respiratory 16 Rate Blood Pressure 130/88 [Left] O2 Sat by Pulse 100 Oximetry ED Medical Decision Making - Lab Data Result diagrams: 11/04/18 11:13 11/04/18 11:13 - Medical Decision Making This patient has a history of schizophrenia and bipolar disorder and appears to be having some acute exacerbation and/or psychosis. He is awake and conversive but he expresses some disorganized and tangential thoughts. He has been calm during his ED course thus far, but his field service coordinator says that he has been aggressive towards other residents and staff, making threats, walking into other people's rooms and exposing himself. He has been admitted 1013. His labs have been unremarkable. Vital signs stable throughout his ED course. The patient is medically cleared for psychiatric placement. - Differential Diagnosis schizophrenia, bipolar disorder, schizoaffective, substance abuse Critical Care Time: No Critical care attestation.: If time is entered above; I have spent that time in minutes in the direct care of this critically ill patient, excluding procedure time. ED Disposition Clinical Impression: Psychosis Qualifiers: Psychosis type: unspecified psychosis type Qualified Code(s): F29 - Unspecified psychosis not due to a substance or known physiological condition Schizophrenia Qualifiers: Schizophrenia type: unspecified Qualified Code(s): F20.9 - Schizophrenia, unspecified Disposition: DC/TX-65 PSY HOSP/PSY UNIT Is pt being admited?: No Condition: Stable Referrals: AYAKA LUCIA MD [Primary Care Provider] - 3-5 Days Time of Disposition: 13:09
[2018-11-04 11:35] LABS: Basophils % (Auto) 0.5 % (0.0-1.8); Eosinophils % (Auto) 0.6 % (0.0-4.3); Hematocrit 42.9 % (35.5-45.6); Lymphocytes # (Auto) 2.4 K/mm3 (1.2-5.4); Lymphocytes % (Auto) 31.1 % (13.4-35.0); Mean Corpuscular HGB Conc 33 % (32-34); Mean Corpuscular Volume 89 fl (84-94); Monocytes # (Auto) 0.5 K/mm3 (0.0-0.8); Monocytes % (Auto) 6.8 % (0.0-7.3); Platelet Count 133 K/mm3 (140-440); Red Blood Count 4.81 M/mm3 (3.65-5.03); Red Cell Distribution Width 14.5 % (13.2-15.2)
[2018-11-04 11:52] LABS: BUN/Creatinine Ratio 12; Blood Urea Nitrogen 11 mg/dL (9-20); Calcium 8.9 mg/dL (8.4-10.2); Hemolysis Index 15
[2018-11-04 11:54] LABS: WBC,Urine < 1.0 /HPF (0.0-6.0)
[2018-11-04 12:12] LABS: Amphetamine Screen,Urine PRESUMPTIVE NEGATIVE; Benzodiazepines Screen,Urine PRESUMPTIVE NEGATIVE; Cannabinoid Screen,Urine PRESUMPTIVE NEGATIVE; Cocaine Screen,Urine PRESUMPTIVE NEGATIVE; Methadone Screen,Urine PRESUMPTIVE NEGATIVE; Opiate Screen,Urine PRESUMPTIVE NEGATIVE
[2018-11-04 15:29] VITALS: BP 117/86
== END 2018-11-04 18:48 ==
LOC: EEVIPCON 10:45 → ED 10:45
DX: F31.9 Bipolar disorder, unspecified (principal); F20.9 Schizophrenia, unspecified; I10 Essential (primary) hypertension; Z86.73 Personal history of transient ischemic attack (TIA), and cerebral infarction without residual deficits; E11.9 Type 2 diabetes mellitus without complications; Z79.899 Other long term (current) drug therapy; Z79.82 Long term (current) use of aspirin; Z98.890 Other specified postprocedural states
CPT/HCPCS: 36415; 80048; 80164; 80307; 81001; 85025; 99285; G0480; 80320

== ENCOUNTER 2019-07-19 09:32 | Emergency (ER) | payer MEDICARE ==
--- NOTE | 2019-07-19 10:23 | Emergency Department Report ---
ED General Adult HPI - General Stated complaint: POSS COVID -19 Time Seen by Provider: 07/19/19 10:00 - History of Present Illness Initial comments: 53-year-old male with history of CVA, schizophrenia, diabetes, CAD, presents from [facility] due to reported cough and fever. Patient denies shortness of breath. -: days(s) (3) Severity scale (0 -10): 0 Consistency: constant Improves with: none Worsens with: none Associated Symptoms: cough, fever/chills. denies: chest pain, nausea/vomiting, shortness of breath - Related Data Home Medications Medication Instructions Recorded Confirmed Last Taken Benztropine [Cogentin] 1 mg PO BID 06/10/18 09/29/18 Unknown Divalproex [Sandeep HUNT] 1,000 mg PO QHS 06/10/18 09/29/18 Unknown Divalproex [Sandeep HUNT] 500 mg PO QHS 06/10/18 09/29/18 Unknown Glimepiride [Amaryl] 2 mg PO QAM 06/10/18 09/29/18 Unknown Loperamide [Imodium] 2 mg PO QDAY PRN 06/10/18 09/29/18 Unknown Loratadine (Nf) [Claritin] 10 mg PO DAILY 06/10/18 09/29/18 Unknown Metformin HCl [Fortamet ER] 1,000 mg PO BID 06/10/18 09/29/18 Unknown Metoprolol Tartrate 25 mg PO BID 06/10/18 09/29/18 Unknown cloNIDine [Catapres] 0.1 mg PO BID 06/10/18 09/29/18 Unknown cloZAPine 100 mg PO BID 06/10/18 09/29/18 Unknown glipiZIDE [Glipizide] 5 mg PO QAM 06/10/18 09/29/18 Unknown hydrOXYzine HCL [Hydroxyzine HCl] 25 mg PO TID 06/10/18 09/29/18 Unknown methOCARBAMOL [Robaxin TAB] 750 mg PO Q8H PRN 06/10/18 09/29/18 Unknown traZODone [Desyrel] 50 mg PO QHS 06/10/18 09/29/18 Unknown Aspirin EC [Halfprin EC] 81 mg PO QDAY 09/29/18 09/29/18 Unknown Previous Rx's Medication Instructions Recorded Last Taken Type Benzonatate [Tessalon Perles] 100 mg PO Q8HR PRN #20 capsule 07/19/19 Unknown Rx Allergies Allergy/AdvReac Type Severity Reaction Status Date / Time No Known Allergies Allergy Verified 09/29/18 08:19 ED Review of Systems ROS: Stated complaint: POSS COVID -19 Other details as noted in HPI Comment: All other systems reviewed and negative Constitutional: fever Respiratory: cough. denies: shortness of breath Cardiovascular: denies: chest pain Gastrointestinal: denies: nausea, vomiting, diarrhea ED Past Medical Hx - Past Medical History Hx Hypertension: Yes Hx CVA: Yes Hx Diabetes: Yes Hx Seizures: Yes Hx Psychiatric Treatment: Yes (schizophrenia) Additional medical history: Anemia - Surgical History Additional Surgical History: Hernia repair - Social History Smoking Status: Never Smoker Substance Use Type: None - Medications Home Medications: Home Medications Medication Instructions Recorded Confirmed Last Taken Type Benztropine [Cogentin] 1 mg PO BID 06/10/18 09/29/18 Unknown History Divalproex [Sandeep HUNT] 1,000 mg PO QHS 06/10/18 09/29/[address] Soo HUNT] 500 mg PO QHS 06/10/18 09/29/18 Unknown History Glimepiride [Amaryl] 2 mg PO QAM 06/10/18 09/29/18 Unknown History Loperamide [Imodium] 2 mg PO QDAY PRN 06/10/18 09/29/18 Unknown History Loratadine (Nf) [Claritin] 10 mg PO DAILY 06/10/18 09/29/18 Unknown History Metformin HCl [Fortamet ER] 1,000 mg PO BID 06/10/18 09/29/18 Unknown History Metoprolol Tartrate 25 mg PO BID 06/10/18 09/29/18 Unknown History cloNIDine [Catapres] 0.1 mg PO BID 06/10/18 09/29/18 Unknown History cloZAPine 100 mg PO BID 06/10/18 09/29/18 Unknown History glipiZIDE [Glipizide] 5 mg PO QAM 06/10/18 09/29/18 Unknown History hydrOXYzine HCL [Hydroxyzine HCl] 25 mg PO TID 06/10/18 09/29/18 Unknown History methOCARBAMOL [Robaxin TAB] 750 mg PO Q8H PRN 06/10/18 09/29/18 Unknown History traZODone [Desyrel] 50 mg PO QHS 06/10/18 09/29/18 Unknown History Aspirin EC [Halfprin EC] 81 mg PO QDAY 09/29/18 09/29/18 Unknown History Benzonatate [Tessalon Perles] 100 mg PO Q8HR PRN #20 capsule 07/19/19 Unknown Rx ED Physical Exam - General General appearance: alert, in no apparent distress - Head Head exam: Present: atraumatic, normocephalic - Eye Eye exam: Present: normal appearance, EOMI - ENT ENT exam: Present: mucous membranes moist - Neck Neck exam: Present: normal inspection - Respiratory Respiratory exam: Present: normal lung sounds bilaterally. Absent: respiratory distress - Cardiovascular Cardiovascular Exam: Present: regular rate, normal rhythm - GI/Abdominal GI/Abdominal exam: Present: soft. Absent: distended, tenderness - Extremities Exam Extremities exam: Present: normal inspection - Neurological Exam Neurological exam: Present: alert, oriented X3 - Psychiatric Psychiatric exam: Present: normal affect, normal mood - Skin Skin exam: Present: warm, dry, intact, normal color ED Course Vital Signs 07/19/19 07/19/19 10:10 12:33 Temperature 98.7 F Pulse Rate 74 66 Respiratory 20 18 Rate Blood Pressure 102/66 97/66 [Left] O2 Sat by Pulse 95 100 Oximetry ED Medical Decision Making - Lab Data Result diagrams: 07/19/19 10:24 07/19/19 10:24 - Radiology Data Radiology results: report reviewed, image reviewed - Medical Decision Making - afebrile at this time - no lymphopenia on CBC - no resp distress, O2 sats normal - CXR negative - COVID form submitted online - prescriptions given - return precautions given - advised 14 day quarantine in discharge paperwork - Differential Diagnosis flu, pneumonia, viral illness Critical care attestation.: If time is entered above; I have spent that time in minutes in the direct care of this critically ill patient, excluding procedure time. ED Disposition Clinical Impression: Cough, Suspected 2019-nCoV infection Disposition: DC- TO HOME OR SELFCARE Is pt being admited?: No Condition: Stable Instructions: COVID-19, Cold Symptoms (ED) Additional Instructions: You do not currently have a fever. Your chest xray was normal. Your blood work was normal. Your flu test was negative. We are currently unable to test for coronavirus at our hospital. However, your name has been submitted online to the Department of Health for consideration. If they feel that you meet the criteria, you will be contacted by the Dept of Health and tested at that time. In the meantime, quarantine for 14 days is recommended. Return to ER if your symptoms worsen. Prescriptions: Benzonatate [Tessalon Perles] 100 mg PO Q8HR PRN #20 capsule PRN Reason: Cough Referrals: AYAKA LUCIA MD [Primary Care Provider] - 3-5 Days
[2019-07-19 10:47] LABS: Basophils # (Auto) 0.1 K/mm3 (0.0-0.1); Basophils % (Auto) 0.5 % (0.0-1.8); Eosinophils # (Auto) 0.1 K/mm3 (0.0-0.4); Eosinophils % (Auto) 0.9 % (0.0-4.3); Hematocrit 34.9 % (35.5-45.6); Hemoglobin 11.5 gm/dl (11.8-15.2); Lymphocytes # (Auto) 2.7 K/mm3 (1.2-5.4); Lymphocytes % (Auto) 20.8 % (13.4-35.0); Mean Corpuscular HGB Conc 33 % (32-34); Mean Corpuscular Volume 85 fl (84-94); Monocytes # (Auto) 1.5 K/mm3 (0.0-0.8); Monocytes % (Auto) 11.6 % (0.0-7.3); Platelet Count 172 K/mm3 (140-440); Red Blood Count 4.09 M/mm3 (3.65-5.03); Red Cell Distribution Width 13.8 % (13.2-15.2)
[2019-07-19 10:59] LABS: BUN/Creatinine Ratio 10; Blood Urea Nitrogen 11 mg/dL (9-20); Calcium 8.6 mg/dL (8.4-10.2); Hemolysis Index 11
--- NOTE | 2019-07-19 11:10 | XRay Report ---
CHEST 1 VIEW INDICATION / CLINICAL INFORMATION: cough. COMPARISON: 09/09/2018 chest radiograph FINDINGS: SUPPORT DEVICES: None. HEART / MEDIASTINUM: No significant abnormality. LUNGS / PLEURA: No significant pulmonary or pleural abnormality. No pneumothorax. IMPRESSION: No acute finding. No significant change. Signer Name: Ronni Kelley MD Signed: 07/19/2019 11:05 AM Workstation Name: [id number]
[2019-07-19 12:34] VITALS: BP 97/66
== END 2019-07-19 12:04 | disposition home or self-care (01) ==
LOC: ED 09:32
DX: R05 Cough (principal); Z20.828 Contact with and (suspected) exposure to other viral communicable diseases; R50.9 Fever, unspecified; G40.909 Epilepsy, unspecified, not intractable, without status epilepticus; E11.9 Type 2 diabetes mellitus without complications; Z79.899 Other long term (current) drug therapy; Z86.73 Personal history of transient ischemic attack (TIA), and cerebral infarction without residual deficits
CPT/HCPCS: 36415; 71045; 80048; 85025; 87400; 87635

== ENCOUNTER 2019-11-27 17:26 | Emergency (ER) | payer MEDICARE ==
[2019-11-27 18:19] LABS: Basophils # (Auto) 0.1 K/mm3 (0.0-0.1); Basophils % (Auto) 0.6 % (0.0-1.8); Eosinophils # (Auto) 0.1 K/mm3 (0.0-0.4); Eosinophils % (Auto) 0.6 % (0.0-4.3); Hematocrit 42.8 % (35.5-45.6); Hemoglobin 14.4 gm/dl (11.8-15.2); Lymphocytes % (Auto) 22.2 % (13.4-35.0); Mean Corpuscular HGB Conc 34 % (32-34); Mean Corpuscular Volume 85 fl (84-94); Monocytes # (Auto) 0.7 K/mm3 (0.0-0.8); Monocytes % (Auto) 7.6 % (0.0-7.3); Platelet Count 182 K/mm3 (140-440); Red Blood Count 5.06 M/mm3 (3.65-5.03); Red Cell Distribution Width 14.4 % (13.2-15.2)
[2019-11-27 18:21] LABS: BUN/Creatinine Ratio 8; Blood Urea Nitrogen 8 mg/dL (9-20); Calcium 8.9 mg/dL (8.4-10.2); Hemolysis Index 6
[2019-11-27] MEDS ORDERED: SODIUM CHLORIDE 0.9% 1000 ML 1,000 ML IV ONE ×3 (18:57→22:03)
[2019-11-27] MEDS ORDERED: HYDROcodone/ACETAMINOPHEN 5-325 MG TAB PO ONE (19:02)
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
[2019-11-27 21:02] LABS: Amphetamine Screen,Urine PRESUMPTIVE NEGATIVE; Benzodiazepines Screen,Urine PRESUMPTIVE NEGATIVE; Cannabinoid Screen,Urine PRESUMPTIVE NEGATIVE; Cocaine Screen,Urine PRESUMPTIVE NEGATIVE; Methadone Screen,Urine PRESUMPTIVE NEGATIVE; Opiate Screen,Urine PRESUMPTIVE NEGATIVE
[2019-11-27 21:05] LABS: Bilirubin,Urine NEG (Negative); Blood,Urine NEG (Negative); Color,Urine Colorless (Yellow); Protein,Urine <15 mg/dL mg/dL (Negative); RBC,Urine < 1.0 /HPF (0.0-6.0); Urobilinogen,Urine < 2.0 mg/dL (<2.0)
[2019-11-28] MEDS ORDERED: NICOTINE 21 MG/24 HR PATCH TD ONE (16:42)
[2019-11-28] MEDS ORDERED: SODIUM CHLORIDE 0.9% 1000 ML 1,000 ML IV ONE ×2 (21:21→21:22)
--- NOTE | 2019-11-29 15:05 | Consultation ---
History of Present Illness - Reason for Consult Consult date: 11/29/19 Reason for consult: psychosis - History of Present Psychiatric Illness Layton Juarez is a 54y/o male patient who presented to the ER for "violent behavior." The patient is difficult to follow. He is irritable. He is responding to internal stimuli. He is having flight of ideas. He is sexually inappropriate. The patient states, "do you want to join me." He then says, "you don't like me do ya, but you like to make love." He then stares at the wall. PAST PSYCHIATRIC HISTORY: Unable to assess PAST MEDICAL HISTORY: None reported Family Psychiatric History: None reported or documented SOCIAL HISTORY Unable to assess REVIEW OF SYSTEMS Unable to assess MENTAL STATUS EXAMINATION Unable to assess Assessment Schizoaffective Disorder Plan Start Risperidone 0.25mg po daily Start Trazodone 50mg po daily Sitter: Defer to primary Medical: per primary Disposition: Recommend acute inpatient psychiatric treatment Will continue to follow Medications and Allergies Allergies Allergy/AdvReac Type Severity Reaction Status Date / Time No Known Allergies Allergy Verified 09/29/18 08:19 Home Medications Medication Instructions Recorded Confirmed Last Taken Type Benztropine [Cogentin] 1 mg PO BID 06/10/18 09/29/[address] Soo HUNT] 1,000 mg PO QHS 06/10/18 09/29/[address] Soo HUNT] 500 mg PO QHS 06/10/18 09/29/18 Unknown History Glimepiride [Amaryl] 2 mg PO QAM 06/10/18 09/29/18 Unknown History Loperamide [Imodium] 2 mg PO QDAY PRN 06/10/18 09/29/18 Unknown History Loratadine (Nf) [Claritin] 10 mg PO DAILY 06/10/18 09/29/18 Unknown History Metformin HCl [Fortamet ER] 1,000 mg PO BID 06/10/18 09/29/18 Unknown History Metoprolol Tartrate 25 mg PO BID 06/10/18 09/29/18 Unknown History cloNIDine [Catapres] 0.1 mg PO BID 06/10/18 09/29/18 Unknown History cloZAPine 100 mg PO BID 06/10/18 09/29/18 Unknown History glipiZIDE [Glipizide] 5 mg PO QAM 06/10/18 09/29/18 Unknown History hydrOXYzine HCL [Hydroxyzine HCl] 25 mg PO TID 06/10/18 09/29/18 Unknown History methOCARBAMOL [Robaxin TAB] 750 mg PO Q8H PRN 06/10/18 09/29/18 Unknown History traZODone [Desyrel] 50 mg PO QHS 06/10/18 09/29/18 Unknown History Aspirin EC [Halfprin EC] 81 mg PO QDAY 09/29/18 09/29/18 Unknown History Benzonatate [Tessalon Perles] 100 mg PO Q8HR PRN #20 capsule 07/19/19 Unknown Rx Mental Status Exam - Vital signs Last Vital Signs Temp 98.0 F 11/29/19 02:02 Pulse 57 L 11/29/19 07:00 Resp 18 11/29/19 11:05 BP 136/85 11/29/19 07:00 Pulse Ox 100 11/29/19 07:00 Results Result Diagrams: 11/27/19 17:39 11/29/19 00:32 Abnormal lab results 11/29/19 Range/Units 00:32 Sodium 136 L D (137-145) mmol/L All other labs normal.
[2019-11-29] MEDS: risperiDONE 0.25 MG TAB PO SCH ×2 (16:27→21:39)
[2019-11-29] MEDS: traZODone 50 MG TAB PO SCH (21:39)
[2019-11-30] MEDS: risperiDONE 0.25 MG TAB PO SCH ×3 (11:14→21:39)
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
[2019-11-30] MEDS: traZODone 50 MG TAB PO SCH (21:39)
[2019-12-01] MEDS: risperiDONE 0.25 MG TAB PO SCH ×2 (10:35→10:37)
--- NOTE | 2019-12-01 12:54 | Progress Note ---
Subjective - Reason for Consult Consult date: 12/01/19 Reason for consult: psychosis - Chief Complaint Chief complaint: During my interview with the patient this morning, he is awake. His behavior is bizarre. He is responding to internal stimuli. The patient lying down sliding up and down in the chair. He is peeping over the arm rest laughing out loud. When asked about SI/HI, he states, "I think about wars and freedom." He then says, "if somebody tries to kill me. I'm gone try to kill them." The patient then makes a sound to indicate something exploding. He then starts laughing. When asking the patient about hallucinations, he replies, "a little." He starts laughing when I ask him what they are about. REVIEW OF SYSTEMS Constitutional: Negative for weight loss ENT: Negative for stridor Respiratory: Negative for cough or hemoptysis All other systems reviewed and are negative MENTAL STATUS EXAMINATION General Appearance and Behavior: Dressed appropriately, Behavior bizarre Mood: Affect and affective range: congruent with mood Thought Process: Responding to internal stimuli Speech: Low tone Thought content: Suicidal Ideation: Denies Homicidal Ideation: Hallucinations: auditory Delusions: None elicited Insight and Judgment: Limited insight and judgment Memory: impaired Attention: Normal Orientation: Alert, oriented, anxious and confused Assessment Schizoaffective Disorder Plan Increase Risperidone 1mg po BID Sitter: Defer to primary Medical: per primary Disposition: Recommend acute inpatient psychiatric treatment Will continue to follow Mental Status Exam - Vital signs Last Vital Signs Temp 98.0 F 12/01/19 08:09 Pulse 80 12/01/19 08:09 Resp 20 12/01/19 08:09 BP 119/79 12/01/19 08:09 Pulse Ox 100 12/01/19 08:09
[2019-12-01] MEDS: risperiDONE 1 MG TAB PO SCH (22:39)
[2019-12-01] MEDS: traZODone 50 MG TAB PO SCH (22:39)
[2019-12-02] MEDS: risperiDONE 1 MG TAB PO SCH ×2 (09:44→21:50)
--- NOTE | 2019-12-02 10:06 | Progress Note ---
Subjective - Reason for Consult Consult date: 12/02/19 Reason for consult: psychosis - Chief Complaint Chief complaint: During my interview with the patient this morning, he is awake. He's a little better than he was yesterday. The patient says he "feels alright." He then says, "I'm gone get trapped in another country." The patient denies SI/HI, but says "I used too. I didn't want to take my meds so I took an overdose." He denies hallucinations of any kind. REVIEW OF SYSTEMS Constitutional: Negative for weight loss ENT: Negative for stridor Respiratory: Negative for cough or hemoptysis All other systems reviewed and are negative MENTAL STATUS EXAMINATION General Appearance and Behavior: Dressed appropriately, Behavior bizarre Mood: Affect and affective range: congruent with mood Thought Process: Responding to internal stimuli Speech: Low tone Thought content: Suicidal Ideation: Denies Homicidal Ideation: Hallucinations: auditory Delusions: None elicited Insight and Judgment: Limited insight and judgment Memory: impaired Attention: Normal Orientation: Alert, oriented, anxious and confused Assessment Schizoaffective Disorder Plan Continue current medications Sitter: Defer to primary Medical: per primary Disposition: Recommend acute inpatient psychiatric treatment Will continue to follow Mental Status Exam - Vital signs Last Vital Signs Temp 98.1 F 12/02/19 09:29 Pulse 90 12/02/19 09:29 Resp 18 12/02/19 09:30 BP 110/68 12/02/19 09:29 Pulse Ox 99 12/02/19 09:30
[2019-12-02] MEDS: traZODone 50 MG TAB PO SCH (21:51)
[2019-12-03] MEDS: risperiDONE 1 MG TAB PO SCH ×3 (09:34→19:58)
--- NOTE | 2019-12-03 09:59 | Progress Note ---
Subjective - Reason for Consult Consult date: 12/03/19 Reason for consult: Psychosis - Chief Complaint Chief complaint: The patient's medical record was reviewed and the patient's progress was discussed with the nursing staff. The sitter states the patient was acting up and was placed in the isolation room. During my interview with the patient this morning, he is awake. He is in the isolation room. He is a/o x 2. He's difficult to follow. He says that "this is a normal story" when I ask him why was he placed in the isolation room. When asking the patient how he is feeling, he states, "not in reality." He denies SI/HI or hallucinations of any kind. The patient states, "I want to go back to reality." REVIEW OF SYSTEMS Constitutional: Negative for weight loss ENT: Negative for stridor Respiratory: Negative for cough or hemoptysis All other systems reviewed and are negative MENTAL STATUS EXAMINATION General Appearance and Behavior: Dressed appropriately Mood: "not in reality" Affect and affective range: congruent with mood Thought Process: Tangential Speech: Low tone Thought content: Suicidal Ideation: Denies Homicidal Ideation: Denies Hallucinations: Denies Delusions: None elicited Insight and Judgment: Limited insight and judgment Memory: impaired Attention: Normal Orientation: Alert, oriented, anxious and confused Assessment Schizoaffective Disorder Plan Increase Risperidone 1mg po TID Sitter: Defer to primary Medical: per primary Disposition: Recommend acute inpatient psychiatric treatment Will continue to follow Mental Status Exam - Vital signs Last Vital Signs Temp 98.2 F 12/03/19 02:44 Pulse 74 12/03/19 02:44 Resp 16 12/03/19 02:44 BP 121/79 12/03/19 02:44 Pulse Ox 100 12/03/19 02:44
[2019-12-03] MEDS: traZODone 50 MG TAB PO SCH (21:46)
[2019-12-04] MEDS: risperiDONE 1 MG TAB PO SCH ×3 (08:15→21:46)
--- NOTE | 2019-12-04 13:23 | Progress Note ---
Subjective - Reason for Consult Consult date: 12/04/19 Reason for consult: MHE Requesting physician: BARRY DAI - Chief Complaint Chief complaint: Psych HPI Patient seen in room, sleeping. Reports being in a bad mood, mumbled words about penitentiary. Denies SI, HI. Patient easily irritated and did not want to participate in questions being asked. REVIEW OF SYSTEMS Constitutional: Negative for weight loss ENT: Negative for stridor Respiratory: Negative for cough or hemoptysis All other systems reviewed and are negative MENTAL STATUS EXAMINATION General Appearance and Behavior: Dressed appropriately Mood: "not in reality" Affect and affective range: congruent with mood Thought Process: Tangential Speech: Low tone Thought content: Suicidal Ideation: Denies Homicidal Ideation: Denies Hallucinations: Denies Delusions: None elicited Insight and Judgment: Limited insight and judgment Memory: impaired Attention: Normal Orientation: Alert, oriented, anxious and confused Assessment Schizoaffective Disorder Plan Increase Risperidone 2mg po TID Sitter: Defer to primary Medical: per primary Disposition: Recommend acute inpatient psychiatric treatment Will continue to follow Mental Status Exam - Vital signs Last Vital Signs Temp 98.5 F 12/04/19 10:18 Pulse 99 H 12/04/19 10:18 Resp 18 12/04/19 10:18 BP 124/81 12/04/19 10:18 Pulse Ox 99 12/04/19 10:18
[2019-12-04] MEDS: traZODone 50 MG TAB PO SCH (21:45)
[2019-12-05] MEDS: risperiDONE 1 MG TAB PO SCH ×4 (08:26→22:26)
--- NOTE | 2019-12-05 13:47 | Progress Note ---
Subjective - Reason for Consult Consult date: 12/05/19 Reason for consult: MHE Requesting physician: BETTYE GAMBOA - Chief Complaint Chief complaint: Psych HPI Patient seen in seclusion after masturbating behavior. Pt reports not been happy because he was placed there. Says he would be happy if let out. Patient denies been angry, denies AVH. REVIEW OF SYSTEMS Constitutional: Negative for weight loss ENT: Negative for stridor Respiratory: Negative for cough or hemoptysis All other systems reviewed and are negative MENTAL STATUS EXAMINATION General Appearance and Behavior: Dressed appropriately Mood: "not in reality" Affect and affective range: congruent with mood Thought Process: Tangential Speech: Low tone Thought content: Suicidal Ideation: Denies Homicidal Ideation: Denies Hallucinations: Denies Delusions: None elicited Insight and Judgment: Limited insight and judgment Memory: impaired Attention: Normal Orientation: Alert, oriented, anxious and confused Assessment Schizoaffective Disorder Patient approaching baseline behavior, has never been independent but more redir ectable and less irritated. WIll plan for discharge tomorrow if not placed since tolerating medication increase well without side effects complaints. Plan Increase Risperidone 2mg po TID Sitter: Defer to primary Medical: per primary Disposition: Recommend acute inpatient psychiatric treatment Will continue to follow Mental Status Exam - Vital signs Last Vital Signs Temp 96.8 F L 12/05/19 08:14 Pulse 67 12/05/19 08:14 Resp 20 12/05/19 08:14 BP 112/78 12/05/19 08:14 Pulse Ox 100 12/05/19 08:14
[2019-12-05] MEDS: traZODone 50 MG TAB PO SCH (22:22)
[2019-12-06 08:54] VITALS: BP 143/95
--- NOTE | 2019-12-06 09:41 | Progress Note ---
Subjective - Reason for Consult Consult date: 12/06/19 Reason for consult: MHE Requesting physician: ALE ALFARO - Chief Complaint Chief complaint: Psych HPI Patient seen today, no violent or anger outburst reported. Patient compliant with meds and able to make reasonable needs known. Patient reports feeling good today and request he would like to go home. REVIEW OF SYSTEMS Constitutional: Negative for weight loss ENT: Negative for stridor Respiratory: Negative for cough or hemoptysis All other systems reviewed and are negative MENTAL STATUS EXAMINATION General Appearance and Behavior: Dressed appropriately Mood: "good" Affect and affective range: congruent with mood Thought Process: logical Speech: Low tone Thought content: Suicidal Ideation: Denies Homicidal Ideation: Denies Hallucinations: Denies Delusions: None elicited Insight and Judgment: Limited insight and judgment Memory: impaired Attention: Normal Orientation: Alert, oriented Assessment Schizoaffective Disorder Patient behavior improved compared to arrival. Patient responding to risperidone. Plan Increase Risperidone 2mg po TID Sitter: Defer to primary Medical: per primary 1013 rescinded Disposition: Do not rRecommend acute inpatient psychiatric treatment Will sign off Mental Status Exam - Vital signs Last Vital Signs Temp 98.7 F 12/06/19 08:52 Pulse 90 12/06/19 08:52 Resp 20 12/06/19 08:52 BP 143/95 12/06/19 08:52 Pulse Ox 143 H 12/06/19 08:52
[2019-12-06] MEDS: risperiDONE 1 MG TAB PO SCH (10:41)
== END 2019-12-06 11:21 | disposition home or self-care (01) ==
LOC: ED 17:26 → EEVIPCON 17:26 → ED 12-06 11:21
DX: F20.9 Schizophrenia, unspecified (principal); E87.1 Hypo-osmolality and hyponatremia; I10 Essential (primary) hypertension; E11.9 Type 2 diabetes mellitus without complications; F17.200 Nicotine dependence, unspecified, uncomplicated; Z86.73 Personal history of transient ischemic attack (TIA), and cerebral infarction without residual deficits; G40.909 Epilepsy, unspecified, not intractable, without status epilepticus; Z79.899 Other long term (current) drug therapy
CPT/HCPCS: 36415; 71101; 80048; 80164; 80307; 81001; 84295; 85025; 96360; 96361; 99285; J7030; U0003; 80320; G0480

== ENCOUNTER 2019-12-16 21:47 | Emergency (ER) | payer MEDICARE ==
--- NOTE | 2019-12-17 06:30 | Emergency Department Report ---
HPI - General Chief Complaint: Headache Time Seen by Provider: 12/17/19 06:18 - HPI HPI: Room 7 The patient is a 54-year-old male present with a chief complaint of homelessness. Patient states he came to the emergency department because he is homeless and he wanted some rest. When asked about his triage complaint of headache the patient states he does not have a headache and did not have one. Patient denies suicidal homicidal ideation. Patient denies auditory visual hallucinations. Patient denies having any complaints at all except for homelessness. ED Past Medical Hx - Past Medical History Previous Medical History?: Yes Hx Hypertension: Yes Hx CVA: Yes Hx Diabetes: Yes Hx Seizures: Yes Hx Psychiatric Treatment: Yes (schizophrenia) Additional medical history: Anemia - Surgical History Additional Surgical History: Hernia repair - Family History Family history: no significant - Social History Smoking Status: Current Every Day Smoker Substance Use Type: Alcohol - Medications Home Medications: Home Medications Medication Instructions Recorded Confirmed Last Taken Type Benztropine [Cogentin] 1 mg PO BID 06/10/18 12/11/19 Unknown History Divalproex [Sandeep CUELLAR] 500 mg PO QHS 06/10/18 12/11/[address] Jolie Cuellar] 1,000 mg PO QHS 06/10/18 12/11/19 Unknown History Glimepiride [Amaryl] 2 mg PO QAM 06/10/18 12/11/19 Unknown History Loperamide [Imodium] 2 mg PO QDAY PRN 06/10/18 12/11/19 Unknown History Loratadine (Nf) [Claritin] 10 mg PO DAILY 06/10/18 12/11/19 Unknown History Metformin HCl [Fortamet ER] 1,000 mg PO BID 06/10/18 12/11/19 Unknown History Metoprolol Tartrate 25 mg PO BID 06/10/18 12/11/19 Unknown History cloNIDine [Catapres] 0.1 mg PO BID 06/10/18 12/11/19 Unknown History cloZAPine 100 mg PO BID 06/10/18 12/11/19 Unknown History glipiZIDE [Glipizide] 5 mg PO QAM 06/10/18 12/11/19 Unknown History hydrOXYzine HCL [Hydroxyzine HCl] 25 mg PO TID 06/10/18 09/29/18 Unknown History methOCARBAMOL [Robaxin TAB] 750 mg PO Q8H PRN 06/10/18 12/11/19 Unknown History Aspirin EC [Halfprin EC] 81 mg PO QDAY 09/29/18 12/11/19 Unknown History Benzonatate [Tessalon Perles] 100 mg PO Q8HR PRN #20 capsule 07/19/19 12/11/19 Unknown Rx risperiDONE [RisperDAL] 2 mg PO TID 30 Days #60 tablet 12/06/19 12/11/19 Unknown Rx traZODone [Desyrel] 100 mg PO QHS #30 tablet 12/06/19 12/11/[address] [DepaKOTE DR] 1,000 mg PO QHS #30 tablet 12/14/19 Unknown Rx haloperidoL [Haldol] 10 mg PO BID #120 tablet 12/14/19 Unknown Rx hydrOXYzine PAMOATE [Vistaril] 25 mg PO TID PRN #90 capsule 12/14/19 Unknown Rx traZODone [Desyrel] 50 mg PO QHS #30 tab 12/14/19 Unknown Rx ED Review of Systems ROS: Stated complaint: HEADACHE Other details as noted in HPI Constitutional: no symptoms reported Respiratory: no symptoms reported Endocrine: no symptoms reported Neurological: denies: headache Psychiatric: denies: auditory hallucinations, visual hallucinations, homicidal thoughts, suicidal thoughts Physical Exam - Physical Exam Vital Signs: Vital Signs 12/16/19 12/17/19 12/17/19 23:03 05:25 05:31 Temperature 98.5 F Pulse Rate 78 58 L Respiratory 18 19 16 Rate Blood Pressure 145/84 O2 Sat by Pulse 98 99 Oximetry 12/17/19 05:45 Temperature Pulse Rate 57 L Respiratory 14 Rate Blood Pressure 110/72 O2 Sat by Pulse 98 Oximetry Physical Exam: GENERAL: The patient is well-developed well-nourished male lying on stretcher not appearing to be in acute distress. [] HEENT: Normocephalic. Atraumatic. Extraocular motions are intact. Patient has moist mucous membranes. NECK: Supple. Trachea midline CHEST/LUNGS: Clear to auscultation. There is no respiratory distress noted. HEART/CARDIOVASCULAR: Regular. There is no tachycardia. There is no gallop rub or murmur. ABDOMEN: Abdomen is soft, nontender. Patient has normal bowel sounds. There is no abdominal distention. SKIN: There is no rash. There is no edema. There is no diaphoresis. NEURO: The patient is awake, alert, and oriented. The patient is cooperative. The patient has no focal neurologic deficits. The patient has normal speech MUSCULOSKELETAL: There is no evidence of acute injury. ED Course Vital Signs 12/16/19 12/17/19 12/17/19 23:03 05:25 05:31 Temperature 98.5 F Pulse Rate 78 58 L Respiratory 18 19 16 Rate Blood Pressure 145/84 O2 Sat by Pulse 98 99 Oximetry 12/17/19 05:45 Temperature Pulse Rate 57 L Respiratory 14 Rate Blood Pressure 110/72 O2 Sat by Pulse 98 Oximetry ED Medical Decision Making - Differential Diagnosis Homelessness Critical care attestation.: If time is entered above; I have spent that time in minutes in the direct care of this critically ill patient, excluding procedure time. ED Disposition Clinical Impression: Homelessness Disposition: DC-01 TO HOME OR SELFCARE Is pt being admited?: No Does the pt Need Aspirin: No Condition: Stable Referrals: PRIMARY CARE, [Primary Care Provider] - 3-5 Days
[2019-12-17 12:35] VITALS: BP 119/81
== END 2019-12-17 14:29 | disposition home or self-care (01) ==
LOC: ED 21:47
DX: R51 Headache (principal); I10 Essential (primary) hypertension; E11.9 Type 2 diabetes mellitus without complications; F17.200 Nicotine dependence, unspecified, uncomplicated; M19.90 Unspecified osteoarthritis, unspecified site; Z86.69 Personal history of other diseases of the nervous system and sense organs; Z86.73 Personal history of transient ischemic attack (TIA), and cerebral infarction without residual deficits; Z59.0 Homelessness; Z79.899 Other long term (current) drug therapy
CPT/HCPCS: 99283